=== PATIENT | female | born 1970 | race Caucasian/White ===

== ENCOUNTER → 2019-04-09 | Outpatient (CLI) | payer BC ==
[~2019-04-09] VITALS: Ht 167 cm; Wt 83.6 kg
[~2019-04-09] MED LIST: ASCO1CAP4 PO; DOCU100T7; MULT1CAP27 PO; PREN1TAB39
[2019-04-09 09:19] VITALS: BP 107/76
[2019-04-09 10:01] LABS: BASOPHILS # (AUTO) 0.1 10^3/uL (0.0-0.1); BASOPHILS % (AUTO) 1 % (0-10); EOSINOPHILS # (AUTO) 0.3 10^3/uL (0.0-0.3); EOSINOPHILS % (AUTO) 4 % (0-10); HEMATOCRIT 41 % (35-52); HEMOGLOBIN 13.3 G/DL (11.5-16.0); LYMPHOCYTES # (AUTO) 1.7 X 10^3 (1.0-4.0); LYMPHOCYTES % (AUTO) 29 % (12-44); MEAN CORPUSCULAR HEMOGLOBIN 30 PG (25-34); MEAN CORPUSCULAR HGB CONC 33 G/DL (32-36); MEAN CORPUSCULAR VOLUME 91 FL (80-99); MEAN PLATELET VOLUME 10.3 FL (7.4-10.4); MONOCYTES # (AUTO) 0.4 X 10^3 (0.0-1.0); MONOCYTES % (AUTO) 8 % (0-12); NEUTROPHILS # (AUTO) 3.2 X 10^3 (1.8-7.8); NEUTROPHILS % (AUTO) 57 % (42-75); PLATELET COUNT 251 10^3/uL (130-400); RED CELL DISTRIBUTION WIDTH 13.7 % (10.0-14.5); WHITE BLOOD COUNT 5.7 10^3/uL (4.3-11.0)
== END ==
LOC: PREOP 09:01
PROVIDERS: ATTEND Obstetrics & Gynecology
DX: Z01.818 Encounter for other preprocedural examination (principal); N81.4 Uterovaginal prolapse, unspecified
CPT/HCPCS: 36415; 85025; 86850; 86900; 86901; 87081

== ENCOUNTER 2019-04-20 06:10 | Day surgery (SDC) | payer BC, OTHER ==
[2019-04-20] VITALS (9 sets, daily range): BP systolic 84–110; BP diastolic 57–69
[~2019-04-20] VITALS: Ht 160 cm; Wt 83.6 kg
[2019-04-20] MEDS ORDERED: LACTATED RINGERS 1,000 ML IV SCH ×2 (06:34→06:56)
[2019-04-20] MEDS ORDERED: BUPIVACAINE 0.25% 30 ML (SENSORCAINE) VIAL ONE (06:35)
[2019-04-20] MEDS ORDERED: ceFAZolin 2 GM/50 ML NS 50 ML IV ONE (06:45)
[2019-04-20] MEDS ORDERED: metroNIDAZOLE 500MG/100ML IVPB 100 ML IV ONE (06:45)
[2019-04-20] MEDS ORDERED: LIDOCAINE PF 2% 5 ML (XYLOCAINE) VIAL ONE (06:53)
[2019-04-20] MEDS ORDERED: proPOfol 200 MG/20 ML (DIPRIVAN) VIAL IV ONE (06:53)
[2019-04-20] MEDS ORDERED: fentaNYL INJECTION 100 MCG/2 ML AMP ONE (06:53)
[2019-04-20] MEDS ORDERED: MIDAZOLAM 2 MG/2 ML (VERSED) VIAL ONE (06:53)
[2019-04-20] MEDS ORDERED: ROCURONIUM 10 MG/ML 5 ML SYRINGE IV ONE (06:53)
[2019-04-20] MEDS ORDERED: ONDANSETRON 4 MG/2 ML (SDV) Z0FRAN ONE (06:53)
[2019-04-20] MEDS ORDERED: SEVOFLURANE (ULTANE) 15 ML INHAL SOLN ONE ×7 (06:55→08:40)
[2019-04-20] MEDS ORDERED: DEXAMETHASONE 10 MG/ML (DECADRON) 1 ML VIAL ONE (06:55)
[2019-04-20] MEDS ORDERED: ceFAZolin 2 GM/50 ML NS 50 ML ONE (06:56)
[2019-04-20] MEDS ORDERED: metroNIDAZOLE 500MG/100ML IVPB 100 ML ONE (06:56)
--- NOTE | 2019-04-20 06:56 | Progress Note-Pre Operative ---
Pre-Operative Progress Note H&P Reviewed The H&P was reviewed, patient examined and no changes noted. Date Seen by Provider: Apr 20, 2019 Time Seen by Provider: 06:55 Date H&P Reviewed: Apr 20, 2019 Time H&P Reviewed: 06:55 Pre-Operative Diagnosis: POP MIQUEL MUNGUIA DO Apr 20, 2019 06:56
[2019-04-20] MEDS ORDERED: ZOLPIDEM 5 MG (AMBIEN) TAB PO PRN (07:00)
[2019-04-20] MEDS ORDERED: CHLORASEPTIC LOZENGE MM PRN (07:00)
[2019-04-20] MEDS ORDERED: HYDROcodone/APAP 7.5 MG/325 MG (LORTAB, LORCET PLUS) TABLET PO PRN (07:00)
[2019-04-20] MEDS ORDERED: DOCUSATE SODIUM 100 MG (COLACE) CAP PO PRN (07:00)
[2019-04-20] MEDS ORDERED: ONDANSETRON 4 MG/2 ML (SDV) Z0FRAN IV PRN (07:00)
[2019-04-20] MEDS ORDERED: ANTACID SUSP 30 ML UDC (MYLANTA) PO PRN (07:00)
[2019-04-20] MEDS ORDERED: SIMETHICONE 80 MG (MYLICON) CHEW PO PRN (07:00)
[2019-04-20] MEDS: LACTATED RINGERS 1,000 ML IV PRN ×2 (07:00→08:11)
[2019-04-20] MEDS ORDERED: HYDR-34 PO (07:06)
[2019-04-20] MEDS ORDERED: DOCU100C37 PO (07:06)
[2019-04-20] MEDS ORDERED: IBUP-844 PO (07:06)
[2019-04-20] MEDS ORDERED: SIME80TA16 PO (07:06)
--- NOTE | 2019-04-20 07:10 | Discharge Inst-Women's Service ---
Discharge Inst-Women's Serv Depart Medication/Instructions New, Converted or Re-Newed RX: RX on Chart Problems Reviewed?: Yes Consults/Follow Up Additional Follow Up: Yes Orders/Referrals Dr. Theodore in 7-10 days, and in 8 weeks Activity Activity: Activity as Tolerated Driving Instructions: No Driving for 1 Week NO SMOKING: NO SMOKING Nothing Inside Vagina: No Douching, No [place], No Tampons Diet Discharge Diet: No Restrictions Symptoms to Report to : Bleeding Excessive, Pain Increased, Fever Over 101 Degrees F, Vaginal Bleeding Increase, Questions/Concerns For Any Problems or Questions: Contact Your Physician Skin/Wound Care Infection Signs and Symptoms: Increased Redness, Foul Odor of Wound, Increased Drainage, Skin Itchy or Has a Rash, Increased Swelling, Temperature Above 101 F Operative Area Clean and Dry: Keep Incision Clean/Dry Stitches/Maude/Dermabond: Dermabond, Care of Stitches Bathing Instructions: MIQUEL Quesada DO Apr 20, 2019 07:10
[2019-04-20] MEDS: KETOROLAC 30 MG/ML VIAL IV PRN ×2 (08:30→15:19)
[2019-04-20] MEDS ORDERED: MEPERIDINE (DEMEROL) INJ 50 MG/ML IVP ONE (09:00)
[2019-04-20] MEDS ORDERED: morphine INJ 10 MG/ML 1ML (SYR OR VIAL) IVP ONE (09:00)
[2019-04-20] MEDS ORDERED: ONDANSETRON 4 MG/2 ML (SDV) Z0FRAN IVP PRN (09:00)
[2019-04-20] MEDS ORDERED: PROMETHAZINE INJ 25 MG/ML (PHENERGAN) AMP IVP ONE (09:00)
[2019-04-20] MEDS ORDERED: HYDROmorphone 2 MG/ML VIAL (DILAUDID) ONE (09:27)
[2019-04-20] MEDS ORDERED: HYDROmorphone 2 MG/ML VIAL (DILAUDID) IV ONE (10:00)
--- NOTE | 2019-04-20 10:05 | NUR ---
MARTIN SAEED admitted to room 3306-1, with an admitting diagnosis of ROBOTIC HYSTERECTOMY, on 04/20/19 from RECOVERY ROOM via , accompanied by LALIT SMITH RN AND .MARTIN SAEED introduced to surroundings, call light, bed controls, phone, TV, temperature control, lights, meal times, smoking policy, visitor policy, side rail policy, bathrooms and showers. Patient Rights given to patient in the handbook.MARTIN SAEED verbalizes understanding that [facility] is not responsible for the loss or damage to any personal effects or valuables that are kept in the patients posession during their hospitalization. The following Patient Care Plans were discussed with the : Discharge Planning, ,, and . MARTIN SAEED verbalizes understanding of Interdisciplinary Patient Education. Patient and/or family were informed about the Rapid Response Team and its purpose.
--- NOTE | 2019-04-20 10:05 | NUR ---
REPORT FROM LALIT SMITH RN.
--- NOTE | 2019-04-20 10:20 | NUR ---
INITIAL ASSESSMENT COMPLETED AT BEDSIDE, PT ALERT, AWAKE, REPORTS PAIN 9 IN LOWER ABDOMEN, S/O AT BEDSIDE, SEE INTERVENTIONS FOR DETAILED ASSESSMENTS. PLAN OF CARE EXPLAINED TO PT/SO, PT VERBALIZES UNDERSTANDING. WILL MONITOR CLOSELY.
--- NOTE | 2019-04-20 10:34 | NUR ---
LORTAB (2) TABLETS GIVEN PO FOR PAIN, LR 1000ML INFUSING PER PUMP. ICE WATER AND CRACKERS TO BEDSIDE, ICE PACK TO ABDOMEN. WILL CONTINUE TO MONITOR CLOSELY. S/O REMAINS AT PTS SIDE.
--- NOTE | 2019-04-20 10:53 | NUR ---
RT CALLED ABOUT IS ORDER.
--- NOTE | 2019-04-20 10:53 | NUR ---
LUNCH TRAY TO PTS SIDE, NO DISTRESS NOTED, WILL MONITOR.
--- NOTE | 2019-04-20 11:01 | Anesthesia-General Post-Op ---
General Patient Condition Mental Status/LOC: Same as Preop Cardiovascular: Satisfactory Nausea/Vomiting: Absent Respiratory: Satisfactory Pain: Controlled Complications: Absent Post Op Complications Complications None Follow Up Care/Instructions Patient Instructions None needed. Anesthesia/Patient Condition Patient Condition Patient is doing well, no complaints, stable vital signs, no apparent adverse anesthesia problems. No complications reported per nursing. TOM PUCKETT CRNA Apr 20, 2019 11:01
--- NOTE | 2019-04-20 11:09 | NUR ---
PT REPORTS PAIN IS STILL 9, AND NOT ANY BETTER, DR MUNGUIA CALLED NEW ORDERS RECEIVED.
[2019-04-20] MEDS ORDERED: HYDROmorphone 2 MG/ML VIAL (DILAUDID) IVP PRN (11:15)
--- NOTE | 2019-04-20 11:21 | NUR ---
DILAUDID 1MG GIVEN SIVP FOR PAIN, PT SITTING UP EATING LUNCH IN BED, RATES PAIN 9. CONTINUOUS PULSE OX APPLIED, SPO2 98%, PTS S/O AT BEDSIDE.
--- NOTE | 2019-04-20 11:40 | NUR ---
PT REPORTS PAIN IS "BETTER", S/O AT SIDE, DOSING OFF AT TIMES, WILL MONITOR CLOSELY.
--- NOTE | 2019-04-20 12:12 | NUR ---
O2 APPLIED TO PT BY NC AT 2LITERS WHILE SLEEPING FOR DECREASING SPO2 IN UPPER 80'S. CONTINUOUS PULSE OX APPLIED, RT CALLED ABOUT ESTABLISHING END TIDAL CO2 MONITORING, PTS S/O REMAINS AT SIDE.
--- NOTE | 2019-04-20 12:30 | NUR ---
PT RESTING COMFORTABLY IN BED WITHOUT DISTRESS, S/O AT SIDE.
--- NOTE | 2019-04-20 13:25 | NUR ---
VASUQEZ CATHETER REMOVED, PT TOLERATED WELL, PERICARE COMPLETED. ICE WATER REFILLED,
--- NOTE | 2019-04-20 14:00 | NUR ---
PT UP TO BR, VOIDED WITHOUT DIFFICULTY, PT CHANGING INTO PERSONAL CLOTHES, IV H.L, TOLERATING AMBULATING WELL.
--- NOTE | 2019-04-20 14:00 | NUR ---
O2 DISCONTINUED ALONG WITH END TIDAL CO2
--- NOTE | 2019-04-20 14:45 | NUR ---
DR MUNGUIA CALLED ABOUT PT REQUESTING D/C HOME.
--- NOTE | 2019-04-20 14:48 | NUR ---
TAMIKO VIVEROS HER TO SEE PT. NEW ORDERS RECEIVED.
--- NOTE | 2019-04-20 16:30 | NUR ---
D/C INSTRUCTIONS EXPLAINED TO PT AND S/O, QUESTIONS ANSWERED, PT VERBALIZES UNDERSTANDING OF PLAN OF CARE FOR DISCHARGE. INFORMATION SIGNED.
--- NOTE | 2019-04-20 16:40 | NUR ---
PT D/C TO HOME, TAKEN BY WC TO PRIVATE CAR BY THIS RN WITH S/O AT SIDE, PT VERBALIZES UNDERSTANDING OF D/C INSTRUCTIONS AND FOLLOW UP CARE NO DISTRESS NOTED.
--- NOTE | 2019-04-20 18:23 | OPERATIVE REPORT ---
DATE OF SERVICE: 04/20/2019 PREOPERATIVE DIAGNOSIS: A 48-year-old female with pelvic organ prolapse. POSTOPERATIVE DIAGNOSES: 1. A 48-year-old female with pelvic organ prolapse. 2. Right ovarian dark cyst. PROCEDURES PERFORMED: Robotic-assisted total laparoscopic hysterectomy with bilateral salpingectomy and right oophorectomy. SURGEON: Zackary Theodore DO MANAGER FRENCH: Soco Harrell DNP, who was necessary for uterine manipulation and retraction of vital neurovascular structures throughout the procedure. ANESTHESIA: General endotracheal. ESTIMATED BLOOD LOSS: Minimal. URINE OUTPUT: 120 mL, clear at the end of the procedure. FLUIDS: 1700 mL lactated Ringer's solution. FINDINGS: A grossly normal-appearing uterus, bilateral fallopian tubes appeared grossly normal. Grossly normal-appearing left ovary. The right ovary is enlarged approximately 2-3 cm with a dark bluish purple cystic structure on the right ovary. There is prolapse of the uterine cervix to the level of the vaginal introitus on examination, very mild grade II to grade III cystocele, no rectocele. SPECIMEN SENT: Uterus, bilateral fallopian tubes and right ovary. INDICATIONS FOR PROCEDURE: This is a 48-year-old female sent for consultation in my office for pelvic pressure with Valsalva and lifting as well as some tailbone pain that is new onset since this pressure had occurred. The patient was evaluated in the office and found to have a grade III prolapse of the cervix to the vaginal introitus. I discussed with the patient pessary placement, which would be a more conservative management options versus hysterectomy and the patient wished to proceed with more aggressive surgical permanent option. Risks of the procedure were discussed with the patient in detail including risk of bleeding, infection, damage to any surrounding structures including but not limited to bowel, bladder, ureter, kidneys, postoperative complications that may be incurred, possible need for postoperative reoperation, possible need for blood transfusion, risk from anesthesia and even . After everything was discussed with the patient in detail, consent was obtained in the preoperative area and the patient was taken to the operating room. OPERATIVE REPORT IN DETAIL: Once in the operating room, general anesthesia was found to be adequate, placed in dorsal lithotomy position, prepped and draped in normal sterile fashion. A timeout was performed. A Singleton catheter was placed using sterile technique. A weighted speculum was inserted in the patient's vagina. Right angle retractor was used to visualize the cervix, which was grasped at 12 o'clock position using a long Allis clamp and #0 Vicryl suture was then placed on the anterior lip of the cervix and used as my retraction point. I then gently dilated the cervix to a maximum dilatation approximately 3-4 mm. I then gently sound the uterine cavity and the depth was found to be 8 cm. I selected 8 cm Kim uterine manipulator tip and a 3.5 cm colpotomy ring. I advanced the Kim uterine manipulator tip into the uterus deploying the balloon and colpotomy ring around the vaginal fornix. Excellent uterine manipulation is noted after I do this. I then removed all the other instruments from the patient's vagina. I performed change of gloves and took my attention to the abdomen where infraumbilically I infiltrated this area using 0.25% Marcaine with making an 8 mm incision with a knife and introduced the Veress needle through the incision until intraperitoneal placement was confirmed using saline drop test. I then proceeded with insufflation using CO2 gas and opening pressure of 3 mmHg was noted. I proceeded to maximum pressure of 15 mmHg, at which point I removed the Veress needle and introduced an 8 mm blunt da Melina camera trocar. Once this was in place, I am able to confirm atraumatic placement using the da Melina laparoscope. I had the patient placed in steep Trendelenburg and made visualize all my anatomy findings as described above. There are some adhesions of the omentum on the right side of the anterior abdominal wall, which had to be taken down, so I placed my left trocar first approximately 8 cm lateral to my infraumbilical trocar. The skin was infiltrated using 0.25% Marcaine and made an 8 mm incision with a knife and directed a trocar through the incision until intraperitoneal placement was confirmed using the laparoscope. I then took down the adhesions of the omentum on the right side allowing me to place the right trocar. This was done with an EndoShears after which there was no active bleeding noted from taking down these adhesions. I then placed a trocar in the right side approximately 8 cm lateral to my infraumbilical trocar in similar fashion to the left side. Once both of these trocars were in place, I bring in the da Melina robot and docked in appropriate fashion placing the vessel sealer in the left hand and monopolar modesta in the right hand. I on the right side started by grasping the infundibulopelvic ligament, bipolar cauterized and transected using the vessel sealer. I then grasped the round ligament, bipolar cauterized and transected using the vessel sealer. I then grasped the entire broad ligament, bipolar cauterized and transected using the vessel sealer down to the level of the lower uterine segment, at which point I the anterior and posterior leaflets of the broad ligament. Anterior leaflet was taken around to the anterior vaginal fornix, posterior leaflet was taken around to the posterior vaginal fornix. This allows me to skeletonize the uterine vessels laterally, which I then bipolar cauterized and transected using the vessel sealer. I then on the left side, performed a similar dissection; however sparing the ovary. I started the uteroovarian ligament, I bipolar cauterized and transected using the vessel sealer to create a window in the mesosalpinx using monopolar modesta and take this laterally using monopolar modesta as my hemostatic achieving agent dissecting away as I go the fallopian tube from its blood supply. I then grasped the round ligament, bipolar cauterized and transected using the vessel sealer and then grasped the entire broad ligament, bipolar cauterized and transected using the vessel sealer. I then in similar fashion anterior and posterior leaflets of the broad ligament and skeletonized uterine vessels laterally. I then created a colpotomy at the 12 o'clock position using monopolar modesta. I then took this colpotomy circumferentially around the vaginal fornix amputating the cervix away from the vagina. The entire specimen was then removed through the vagina. I then closed the lateral vaginal apices of the vaginal cuff using 2-0 Vicryl suture in a [id number] fashion colposuspending them to the uterosacral ligaments. During the process of doing so, I am able to identify the ureters bilaterally and they are clear of my dissection planes. I then closed the remainder of the vaginal cuff using 2-0 V-Loc in a running fashion. There was no active bleeding noted from any of my dissection planes. I then undocked the da Melina robot and proceeded with the remainder of the case laparoscopically. I copiously irrigated the pelvis using normal saline. Once again, there was no active bleeding noted from any of my dissection planes. I placed FloSeal hemostatic agent over all my planes of dissection to ensure excellent postoperative hemostasis. After this was done, I had the patient taken out of steep Trendelenburg, removed the lateral trocars under direct visualization and laparoscope. The infraumbilical trocar was left in place to release insufflation and to introduce 10 mL of 0.25% Marcaine for postoperative peritoneal pain management. I then removed this trocar as well. The skin reapproximated using 4-0 Monocryl in interrupted subcuticular stitches. Dermabond was applied to the incisions and Band-Aids were placed over these. Singleton catheter was left in place. Lap and sponge counts were correct at the end of the procedure. Instrument counts were correct as well. The patient tolerated the procedure well and was taken to recovery area in stable condition. Two grams of Ancef, 500 mg of Flagyl given preoperatively for infection prophylaxis. Job ID: [id number] DocumentID: [id number] Dictated Date: 04/20/2019 09:49:07 Facility Maintenance Worker Date: 04/20/2019 18:23:15 Dictated By: DO SHEELA APARICIO
[2019-04-21] MEDS ORDERED: IBUPROFEN 600 MG (MOTRIN) TAB PO PRN (03:00)
== END 2019-04-20 16:40 | disposition home or self-care (01) ==
LOC: SDC 06:10 → WS 10:13 → SDC 16:40
PROVIDERS: ATTEND Obstetrics & Gynecology
DX: N81.3 Complete uterovaginal prolapse (principal); M53.3 Sacrococcygeal disorders, not elsewhere classified
CPT/HCPCS: 36415; 84703; 86850; 86900; 86901; 94664; 94760

== ENCOUNTER → 2019-06-26 | Outpatient (CLI) | payer BC ==
[~2019-06-26] MED LIST changes: +DOCU100C37 PO; +HYDR-34 PO; +IBUP-844 PO; +SIME80TA16 PO
--- NOTE | 2019-06-26 15:07 | Diagnostic Imaging Report ---
EXAMINATION: Ultrasound of the right lower extremity, nonvascular. INDICATION: Lump superior to lateral malleolus of the right leg. COMPARISON: There are no prior studies available for comparison. FINDINGS: Reportedly, there is clinical concern regarding a palpable abnormality involving the soft tissues along the lateral aspect of the ankle joint. The ultrasound examination of this area shows no discrete solid or cystic mass. If clinical concern regarding an underlying abnormality persists, then MRI would be recommended for further study. IMPRESSION: There is no discrete solid or cystic mass in the area of the patient's palpable abnormality along the lateral aspect of the ankle joint. Recommendations as above. Dictated by: Dictated on workstation # [id number]
== END ==
LOC: RAD 12:43
PROVIDERS: ATTEND Family Medicine
DX: R22.41 Localized swelling, mass and lump, right lower limb (principal)
CPT/HCPCS: 76881

== ENCOUNTER → 2019-09-10 | Outpatient (CLI) | payer BC ==
[~2019-09-10] MED LIST changes: +HOLD METFORMIN - RECEIVED CONTRAST 20 ML VIAL IV SCH; +IOHEXOL 350 MG/ML 100 ML (OMNIPAQUE 350) VIAL IV ONE; +NS 100 ML (IVPB) BAG IV ONE
--- NOTE | 2019-09-10 09:31 | Diagnostic Imaging Report ---
PROCEDURE: CT head with and without contrast. TECHNIQUE: Multiple contiguous axial images were obtained through the brain before and after the administration of intravenous contrast. Auto Exposure Controls were utilized during the CT exam to meet ALARA standards for radiation dose reduction. INDICATION: Syncope, vertigo The ventricles are normal in size, shape and position. There are no masses or hemorrhages. There are no extra-axial fluid collections. Postcontrast images do not show any abnormal areas of enhancement. Sagittal and parasagittal structures are normal. IMPRESSION: Negative CT head Dictated by: Dictated on workstation # [id number]
== END ==
LOC: RAD 08:33
PROVIDERS: ATTEND Family Medicine
DX: R42 Dizziness and giddiness (principal); R55 Syncope and collapse; R41.82 Altered mental status, unspecified
CPT/HCPCS: 70470

== ENCOUNTER → 2020-12-15 | Outpatient (CLI) | payer BC, OTHER ==
[~2020-12-15] MED LIST changes: +CYCL10TA9 PO; -HOLD METFORMIN - RECEIVED CONTRAST 20 ML VIAL IV SCH; +INDO25CA99 PO; -IOHEXOL 350 MG/ML 100 ML (OMNIPAQUE 350) VIAL IV ONE; -NS 100 ML (IVPB) BAG IV ONE
--- NOTE | 2020-12-16 13:23 | Diagnostic Imaging Report ---
CLINICAL INDICATION: Patient has explosive headaches with sex. EXAM: MRA of the telida of [place] performed without IV contrast using 3-D [id number]. Rotating 3-D MIP images are created. COMPARISON: Head CT without and with contrast dated 09/10/2019. FINDINGS: There is the appearance of a small vascular outpouching involving the supraclinoid left ICA with the left posterior communicating artery extending from it. This may represent infundibulum, but aneurysm cannot be completely excluded. There is diminished signal within the right [employer] vessel distally and unknown if this is due to artifact. Otherwise the anterior and posterior circulation is patent. 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 This outpouching is not well visualized on this exam. CT angiogram of the telida of [place] and neck is suggested for further evaluation. 2: There is loss of signal within the distal right [employer] vessel. Of note is related to artifact versus an area of true stenosis. This could also be better evaluated with CT angiogram. 3: Remainder of the telida of [place] is unremarkable. [facility]
== END ==
LOC: RAD 14:58
PROVIDERS: ATTEND Family Medicine
DX: G44.82 Headache associated with sexual activity (principal)
CPT/HCPCS: 70544

== ENCOUNTER → 2020-12-15 | Outpatient (CLI) | payer BC, OTHER | LOC: RAD 14:54 | PROVIDERS: ATTEND Obstetrics & Gynecology | DX: Z12.31 Encounter for screening mammogram for malignant neoplasm of breast (principal) | CPT/HCPCS: 77063; 77067 ==

== ENCOUNTER 2020-12-16 10:46 | Emergency (ER) | payer OTHER ==
[~2020-12-16] VITALS: Ht 170 cm; Wt 81.0 kg
[~2020-12-16 10:46] MED LIST changes: -CYCL10TA9 PO; -INDO25CA99 PO
[2020-12-16 11:16] LABS: BASOPHILS # (AUTO) 0.1 10^3/uL (0.0-0.1); BASOPHILS % (AUTO) 1 % (0-10); EOSINOPHILS # (AUTO) 0.2 10^3/uL (0.0-0.3); EOSINOPHILS % (AUTO) 3 % (0-10); HEMATOCRIT 41 % (35-52); HEMOGLOBIN 13.6 g/dL (11.5-16.0); LYMPHOCYTES # (AUTO) 1.6 10^3/uL (1.0-4.0); LYMPHOCYTES % (AUTO) 26 % (12-44); MEAN CORPUSCULAR HEMOGLOBIN 30 pg (25-34); MEAN CORPUSCULAR HGB CONC 33 g/dL (32-36); MEAN CORPUSCULAR VOLUME 90 fL (80-99); MEAN PLATELET VOLUME 10.4 fL (9.0-12.2); MONOCYTES # (AUTO) 0.4 10^3/uL (0.0-1.0); MONOCYTES % (AUTO) 7 % (0-12); NEUTROPHILS # (AUTO) 3.9 10^3/uL (1.8-7.8); NEUTROPHILS % (AUTO) 63 % (42-75); PLATELET COUNT 247 10^3/uL (130-400); WHITE BLOOD COUNT 6.3 10^3/uL (4.3-11.0)
[2020-12-16 11:22] LABS: CHLORIDE 108 MMOL/L (98-107); POTASSIUM 3.9 MMOL/L (3.6-5.0); SODIUM 142 MMOL/L (135-145)
[2020-12-16 11:24] LABS: CALCIUM 9.5 MG/DL (8.5-10.1); GLUCOSE 100 MG/DL (70-105)
[2020-12-16 11:26] LABS: CARBON DIOXIDE 22 MMOL/L (21-32)
[2020-12-16 11:28] LABS: CREATININE SERUM 0.84 MG/DL (0.60-1.30); GFR ESTIMATED > 60
[2020-12-16 11:29] LABS: BUN/CREATININE RATIO 18
[2020-12-16] MEDS ORDERED: NS 100 ML (IVPB) BAG IV ONE (11:45)
[2020-12-16] MEDS ORDERED: IOHEXOL 350 MG/ML 100 ML (OMNIPAQUE 350) VIAL IV ONE (11:45)
[2020-12-16] MEDS ORDERED: CATHETER FLUSH 10 ML SYR IV PRN (11:45)
[2020-12-16] MEDS ORDERED: HOLD METFORMIN - RECEIVED CONTRAST 20 ML VIAL IV SCH (11:45)
--- NOTE | 2020-12-16 12:10 | Diagnostic Imaging Report ---
PROCEDURE: CT angiography of the head and CT angiography of the neck with and without contrast. TECHNIQUE: Contiguous noncontrast images were obtained from the skull base through the vertex. After intravenous contrast administration, helical CT angiography of the neck was performed. Source data was reformatted into 3D MIP projections. Delayed post contrast acquisition was also obtained. Auto Exposure Controls were utilized during the CT exam to meet ALARA standards for radiation dose reduction. INDICATION: Headache. Aneurysm. Back of head is sore when turning. COMPARISON: MRI head without contrast of 12/15/2020. FINDINGS: The noncontrast head CT demonstrates no intracranial hemorrhage, mass effect, hydrocephalus, or extra-axial fluid collections. No CT evidence of a territorial infarction. No abnormal intracranial enhancement on post contrast delayed imaging. CTA demonstrates a conventional aortic arch. The basilar, bilateral common carotid, internal carotid, vertebral, anterior cerebral, middle cerebral, and posterior cerebral arteries are widely patent. No aneurysm or dissection. The findings on the prior MRA were artifactual. Patent anterior and bilateral posterior communicating arteries. The dural venous sinuses are normally opacified. Normal alignment of the cervical spine. No acute osseous findings. The paranasal sinuses and mastoids are clear. Visualized paravertebral soft tissues are unremarkable. Paraseptal emphysema in the lung apices. IMPRESSION: 1. No high-grade narrowing, aneurysm, or dissection involving the major arteries of the head and neck. The findings on the prior MRI of a possible aneurysm were artifactual. 2. No acute intracranial CT findings. No abnormal intracranial enhancement. Dictated by: Dictated on workstation # [id number]
[2020-12-16] MEDS ORDERED: CYCL10TA9 PO (13:53)
[2020-12-16] MEDS ORDERED: INDO25CA99 PO (13:53)
--- NOTE | 2020-12-16 13:53 | ED Headache ---
General Chief Complaint: Head/Cervical Problems Stated Complaint: L SIDE BRAIN ANEURYSM Nursing Triage Note: PT AMB TO ED 6 PT CO OF DANG 01/28, PT STATES HAS HAD DANG FOR 2 WEEKS. STATES WHEN STARTED FELT LIKE EXPLOSION IN HEAD. STATES STARTED WHILE HAVING SEX. PT HAS MRI YESTERDAY AND STATES HAD A POSSIBLE ABNORMALITY AND IS HERE TO BE SEEN AND EVALUATED FOR FURTHER TESTING. STATES DANG CHANGES WHEN TURNS HEAD Nursing Sepsis Screen: No Definite Risk Source: patient, old records, other (Dr. Ford) Exam Limitations: no limitations History of Present Illness Date Seen by Provider: December 16, 2020 Time Seen by Provider: 11:09 Initial Comments This 50-year-old woman presents to the emergency room as directed by Dr. Ford for evaluation of headache and abnormal MRA exam performed yesterday. Patient reports 3 specific instances of severe headache, the first 2 described as "explosive" at the peak of sexual arousal during orgasm. The first 1 occurred about 3 months ago. The second 1 occurred a few weeks ago. She attempted intercourse again yesterday and after becoming aroused started to develop a headache. She then moderated her activity and the headache improved. After the second explosive episode a few weeks ago she has had constant lingering headache, particularly at the base of the posterior scalp and radiating into the neck. She has tender tense musculature in the paraspinous muscles. The explosive and severe headaches are specifically related to climactic sexual activity. She denies having exacerbations of headache with other activities adolfo t cause elevation in heart rate or blood pressure such as physical exertion with walking up stairs, exercise, etc. The MRA was concerning for possible aneurysm. Follow-up CT angiogram was recommended. Dr. Ford discussed the case with Dr. Alvarado at [facility] in [place] who suggested LP to rule out subarachnoid hemorrhage if CTA cannot be used to rule out aneurysm/hemorrhage. Patient notes that she is perimenopausal and has been taking black cohosh and primrose to try to help mitigate symptoms. She started those supplements about 1 month ago. Allergies and Home Medications Allergies Coded Allergies: Penicillins (Verified Allergy, Mild, REDNESS/SWELLING AT INJECTION SITE, 04/09/19) Home Medications Ascorbic Acid/Collagen Hydr 1 Each Capsule, 1 EACH PO BIDPC, (Reported) Cyclobenzaprine HCl 10 Mg Tablet, 10 MG PO Q8H PRN for SPASMS Prescribed by: HARRIET WICK on 12/16/20 1353 Docusate Sodium 100 Mg Capsule, 100 MG PO BID PRN for CONSTIPATION-1ST LINE Prescribed by: MIQUEL MUNGUIA on 04/20/19 07 Hydrocodone Bit/Acetaminophen 1 Ea Tablet, 2 EA PO Q6H PRN for Pain-See I nstructions Prescribed by: MIQUEL MUNGUIA on 04/20/19 07 Ibuprofen 600 Mg Tablet, 600 MG PO Q6H PRN for PAIN-MODERATE Prescribed by: MIQUEL MUNGUIA on 04/20/19 07 Indomethacin 25 Mg Capsule, 25 MG PO UD Take 30 to 60 minutes prior to sexual activity to prevent headache. Prescribed by: HARRIET WICK on 12/16/20 135 Multivitamin 1 Each Capsule, 1 EACH PO DAILY, (Reported) Simethicone 80 Mg Tab.chew, 40 MG PO TID PRN for INDIGESTION 2ND LINE Prescribed by: MIQUEL MUNGUIA on 04/20/19705 Patient Home Medication List Home Medication List Reviewed: Yes Review of Systems Review of Systems Constitutional: no symptoms reported Eyes: No Symptoms Reported Ears, Nose, Mouth, Throat: no symptoms reported Respiratory: no symptoms reported Cardiovascular: no symptoms reported Gastrointestinal: no symptoms reported Genitourinary: no symptoms reported : No Musculoskeletal: see HPI Skin: no symptoms reported Psychiatric/Neurological: See HPI Past Dihdnad-Gokpws-Gbkhtw Hx Past Med/Social Hx: Reviewed Nursing Past Med/Soc Hx Patient Social History Alcohol Use: Denies Use Smoking Status: Former Smoker Former Smoker, Quit: Apr 09, 2014 2nd Hand Smoke Exposure: Yes Recent Infectious Disease Expo: No Recent Hopitalizations: No Seasonal Allergies Seasonal Allergies: No Past Medical History Surgeries: Yes (LOWER BACK, SPHINCTEROTOMY ) Section, Tonsillectomy Respiratory: No Currently Using CPAP: No Currently Using BIPAP: No Cardiac: No Neurological: No Female 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[employer] History: Hysterectomy Sexually Transmitted Disease: No HIV/AIDS: No Genitourinary: No Gastrointestinal: Yes Gastroesophageal Reflux, Chronic Constipation Musculoskeletal: Yes (NO MEDS FOR RA FOR 3 YEARS, JOINT PAIN) Rheumatoid Arthritis, Chronic Back Pain Endocrine: No HEENT: Yes (READING GLASSES) Loss of Vision: Denies Hearing Impairment: Denies Cancer: No Psychosocial: No Integumentary: No Blood Disorders: No Adverse Reaction/Blood Tranf: No (N/A) Physical Exam Vital Signs Vital Signs - First Documented 12/16/20 10:54 Temp 36.6 Pulse 96 Resp 23 B/P (MAP) 103/83 (90) Pulse Ox 97 Capillary Refill : Less Than 3 Seconds Height, Weight, BMI Height: 5'7" Weight: 150lbs. oz. 68.938248nx; 28.00 BMI Method:Stated General Appearance: WD/WN, no apparent distress HEENT: PERRL/EOMI, normal ENT inspection Neck: other (Tenderness over the paraspinous muscles bilaterally. There is a knotted spasmed muscle to the left of the cervical spine) Cardiovascular: regular rate, rhythm, no edema, no murmur Respiratory: lungs clear, normal breath sounds, no respiratory distress Gastrointestinal: soft; No distended Extremities: normal inspection, no pedal edema Psychiatric: alert, oriented x 3 Crainal Nerves: normal hearing, normal speech, PERRL Coordination/Gait: normal finger to nose (Normal [id number]), normal gait Motor/Sensory: no motor deficit, no sensory deficit Skin: normal color, warm/dry Progress/Results/Core Measures Results/Orders Lab Results Laboratory Tests Test 12/16/20 11:00 Range/Units White Blood Count 6.3 4.3-11.0 10^3/uL Red Blood Count 4.60 3.80-5.11 10^6/uL Hemoglobin 13.6 11.5-16.0 g/dL Hematocrit 41 35-52 % Mean Corpuscular Volume 90 80-99 fL Mean Corpuscular Hemoglobin 30 25-34 pg Mean Corpuscular Hemoglobin Concent 33 32-36 g/dL Red Cell Distribution Width 13.2 10.0-14.5 % Platelet Count 247 130-400 10^3/uL Mean Platelet Volume 10.4 9.0-12.2 fL Immature Granulocyte % (Auto) 0 % Neutrophils (%) (Auto) 63 42-75 % Lymphocytes (%) (Auto) 26 12-44 % Monocytes (%) (Auto) 7 0-12 % Eosinophils (%) (Auto) 3 0-10 % Basophils (%) (Auto) 1 0-10 % Neutrophils # (Auto) 3.9 1.8-7.8 10^3/uL Lymphocytes # (Auto) 1.6 1.0-4.0 10^3/uL Monocytes # (Auto) 0.4 0.0-1.0 10^3/uL Eosinophils # (Auto) 0.2 0.0-0.3 10^3/uL Basophils # (Auto) 0.1 0.0-0.1 10^3/uL Immature Granulocyte # (Auto) 0.0 0.0-0.1 10^3/uL Sodium Level 142 135-145 MMOL/L Potassium Level 3.9 3.6-5.0 MMOL/L Chloride Level 108 H 98-107 MMOL/L Carbon Dioxide Level 22 21-32 MMOL/L Anion Gap 12 5-14 MMOL/L Blood Urea Nitrogen 15 7-18 MG/DL Creatinine 0.84 0.60-1.30 MG/DL Estimat Glomerular Filtration Rate > 60 BUN/Creatinine Ratio 18 Glucose Level 100 70-105 MG/DL Calcium Level 9.5 8.5-10.1 MG/DL Serum Test, Qualitative NEGATIVE NEGATIVE My Orders Orders - HARRIET WHYTE MD Ct Angio Head/Neck (12/16/20 11:09) Basic Metabolic Panel (12/16/20 11:09) Cbc With Automated Diff (12/16/20 11:09) Hcg,Qualitative Serum (12/16/20 11:09) Ed Iv/Invasive Line Start (12/16/20 11:09) Iohexol Injection (Omnipaque 350 Mg/Ml 1 (12/16/20 11:45) Received Contrast (Hold Metformin- Contr (12/16/20 11:45) Sodium Chloride Flush (Catheter Flush Sy (12/16/20 11:45) Ns (Ivpb) (Sodium Chloride 0.9% Ivpb Bag (12/16/20 11:45) Ketorolac Injection (Toradol Injection) (12/16/20 14:00) Orphenadrine Inj (Ed Only) (Norflex Inje (12/16/20 14:00) Medications Given in ED Current Medications Medications Dose Ordered Sig/Dolly Route Start Time Stop Time Status Last Admin Dose Admin Iohexol 75 ml ONCE ONCE IV 12/16/20 11:45 12/16/20 11:46 DC 12/16/20 11:49 75 ML Ketorolac Tromethamine 15 mg ONCE ONCE IVP 12/16/20 14:00 12/16/20 14:01 DC 12/16/20 13:52 15 MG Orphenadrine Citrate 60 mg ONCE ONCE IV 12/16/20 14:00 12/16/20 14:01 DC 12/16/20 13:52 60 MG Sodium Chloride 10 ml NEEDED PRN IV 12/16/20 11:45 12/16/20 14:05 DC 12/16/20 11:49 10 ML Sodium Chloride 100 ml ONCE ONCE IV 12/16/20 11:45 12/16/20 11:46 DC 12/16/20 11:49 80 ML Vital Signs/I&O 12/16/20 12/16/20 10:54 13:57 Temp 36.6 Pulse 96 57 Resp 23 18 B/P (MAP) 103/83 (90) 128/98 (90) Pulse Ox 97 97 Blood Pressure Mean: 90 Progress Progress Note : Progress Note CT angiogram of the head and neck revealed no evidence of aneurysm or hemorrhage. After obtaining a more thorough history, it is clear that patient has had 3 distinct episodes of severe headache, the first 2 of which were de scribed as explosive and occurred during orgasm. The third was intense but not as severe as the other 2. This also occurred during sexual activity. The lingering headache she has experienced over the past couple of weeks appears to be tension headache as it originates from the posterior skull base and is associated with tense tender and spasm muscles in the neck. She has being acutely treated in the ER with Toradol and Norflex. She will try indomethacin, Flexeril, and modified sexual activity for prevention of her headaches in the future. Diagnostic Imaging Diagonstic Imaging: CT Plain Films/CT/US/NM/MRI: other (Angiogram head and neck) Comments CT angiogram head and neck reviewed by me and report reviewed. See report below: NAME: MARTIN PORRAS [facility] REC#: [id number] PT STATUS: DEP ER : 1970 PHYSICIAN: HARRIET WHYTE MD ADMIT DATE: 12/16/20/ER Signed Date of Exam:12/16/20 CT ANGIO HEAD/NECK PROCEDURE: CT angiography of the head and CT angiography of the neck with and without contrast. TECHNIQUE: Contiguous noncontrast images were obtained from the skull base through the vertex. After intravenous contrast administration, helical CT angiography of the neck was performed. Source data was reformatted into 3D MIP projections. Delayed post contrast acquisition was also obtained. Auto Exposure Controls were utilized during the CT exam to meet ALARA standards for radiation dose reduction. INDICATION: Headache. Aneurysm. Back of head is sore when turning. COMPARISON: MRI head without contrast of 12/15/2020. FINDINGS: The noncontrast head CT demonstrates no intracranial hemorrhage, mass effect, hydrocephalus, or extra-axial fluid collections. No CT evidence of a territorial infarction. No abnormal intracranial enhancement on post contrast delayed imaging. CTA demonstrates a conventional aortic arch. The basilar, bilateral common carotid, internal carotid, vertebral, anterior cerebral, middle cerebral, and posterior cerebral arteries are widely patent. No aneurysm or dissection. The findings on the prior MRA were artifactual. Patent anterior and bilateral posterior communicating arteries. The dural venous sinuses are normally opacified. Normal alignment of the cervical spine. No acute osseous findings. The paranasal sinuses and mastoids are clear. Visualized paravertebral soft tissues are unremarkable. Paraseptal emphysema in the lung apices. IMPRESSION: 1. No high-grade narrowing, aneurysm, or dissection involving the major arteries of the head and neck. The findings on the prior MRI of a possible aneurysm were artifactual. 2. No acute intracranial CT findings. No abnormal intracranial enhancement. Dictated by: Dictated on workstation # [id number] Dict: 12/16/20 1158 Trans: 12/16/20 1508 [id number] Interpreted by: LESLIE MCGUIRE MD Electronically signed by: LESLIE MCGUIRE MD 12/16/20 1508 Departure Impression Primary Impression: Primary headache associated with sexual activity Additional Impression: Tension headache Disposition: 01 HOME, SELF-CARE Condition: Improved Departure-Patient Inst. Decision time for Depature: 13:48 Referrals: CRICKET FORD MD (PCP/Family) Primary Care Physician Patient Instructions: Tension Headache Add. Discharge Instructions: There was no evidence of aneurysm or bleeding on the CT of your head and neck today. The abnormality seen on the MRI study performed previously is now thought to be an artifact. Your headaches seem to be a combination of tension headaches and primary headache associated with sexual activity. For tension headaches you may use ibuprofen up to 600 mg every 6 hours as needed and/or Tylenol (acetaminophen) up to 1000 mg every 6 hours as needed. Gentle heat and conscientious relaxation of the neck, back, and facial muscles may also be helpful. You may use cyclobenzaprine as prescribed for muscle tension or spasm. Stay well-hydrated and stretch often to maintain good muscle health. You may try taking indomethacin 30 to 60 minutes before sexual activity to help prevent or minimize sex related headaches. You may also try the cyclobenzaprine prior to sexual activity to help you relax. Call with questions or concerns. Follow-up with your primary care provider soon as possible. Return to the ER if you have worsening symptoms. All discharge instructions reviewed with patient and/or family. Voiced understanding. Scripts Cyclobenzaprine HCl (Cyclobenzaprine HCl) 10 Mg Tablet 10 MG PO Q8H PRN for SPASMS, #20 TAB 0 Refills Prov: HARRIET WHYTE MD 12/16/20 Indomethacin (Indomethacin) 25 Mg Capsule 25 MG PO UD, #20 CAP Take 30 to 60 minutes prior to sexual activity to prevent headache. Prov: HARRIET WHYTE MD 12/16/20 Copy Copies To 1: CRICKET FORD MD, JOSHUA T MD December 16, 2020 13:53
[2020-12-16 13:57] VITALS: BP 128/98
[2020-12-16] MEDS ORDERED: KETOROLAC 30 MG/ML VIAL IVP ONE (14:00)
[2020-12-16] MEDS ORDERED: ORPHENADRINE 60 MG/2 ML (NORFLEX) AMP (ED ONLY) IV ONE (14:00)
== END 2020-12-16 14:05 | disposition home or self-care (01) ==
LOC: EDUNIT# 10:46 → ER 10:49
DX: G44.82 Headache associated with sexual activity (principal); G44.209 Tension-type headache, unspecified, not intractable; M62.838 Other muscle spasm; G89.29 Other chronic pain; M54.9 Dorsalgia, unspecified; K59.09 Other constipation; Z87.891 Personal history of nicotine dependence; Z77.22 Contact with and (suspected) exposure to environmental tobacco smoke (acute) (chronic); Z79.891 Long term (current) use of opiate analgesic; Z79.1 Long term (current) use of non-steroidal anti-inflammatories (NSAID); Z79.899 Other long term (current) drug therapy
CPT/HCPCS: 36415; 70496; 70498; 80048; 84703; 85025

== ENCOUNTER 2021-05-21 10:46 | Emergency (ER) | payer OTHER ==
[~2021-05-21] VITALS: Ht 170 cm; Wt 81.6 kg
[~2021-05-21 10:46] MED LIST changes: +CYCL10TA9 PO; +INDO25CA99 PO
[2021-05-21] MEDS ORDERED: fentaNYL INJ 100 MCG/2 ML AMP ONE (10:55)
[2021-05-21] MEDS ORDERED: KETOROLAC 60 MG/2 ML VIAL ONE (10:56)
[2021-05-21] MEDS ORDERED: KETOROLAC 30 MG/ML VIAL ONE (10:59)
[2021-05-21] MEDS ORDERED: LORazepam INJ 2 MG/ML (ATIVAN) VIAL ONE (11:01)
[2021-05-21] MEDS ORDERED: LORazepam INJ 2 MG/ML (ATIVAN) VIAL IVP ONE ×2 (11:15→11:45)
[2021-05-21] MEDS ORDERED: ANTACID SUSP 30 ML UDC (MYLANTA) PO ONE (11:15)
[2021-05-21] MEDS ORDERED: KETOROLAC 30 MG/ML VIAL IVP ONE (11:15)
[2021-05-21] MEDS ORDERED: LIDOCAINE 2% VISCOUS 15 ML UDC PO ONE (11:15)
[2021-05-21] MEDS ORDERED: fentaNYL INJ 100 MCG/2 ML AMP IVP ONE (11:15)
[2021-05-21 11:24] LABS: BASOPHILS # (AUTO) 0.1 10^3/uL (0.0-0.1); BASOPHILS % (AUTO) 2 % (0-10); EOSINOPHILS # (AUTO) 0.2 10^3/uL (0.0-0.3); EOSINOPHILS % (AUTO) 3 % (0-10); HEMATOCRIT 44 % (35-52); HEMOGLOBIN 14.7 g/dL (11.5-16.0); LYMPHOCYTES % (AUTO) 42 % (12-44); MEAN CORPUSCULAR HEMOGLOBIN 30 pg (25-34); MEAN CORPUSCULAR HGB CONC 33 g/dL (32-36); MEAN CORPUSCULAR VOLUME 90 fL (80-99); MEAN PLATELET VOLUME 10.9 fL (9.0-12.2); MONOCYTES # (AUTO) 0.5 10^3/uL (0.0-1.0); MONOCYTES % (AUTO) 7 % (0-12); NEUTROPHILS # (AUTO) 3.4 10^3/uL (1.8-7.8); NEUTROPHILS % (AUTO) 47 % (42-75); PLATELET COUNT 324 10^3/uL (130-400); WHITE BLOOD COUNT 7.2 10^3/uL (4.3-11.0)
--- NOTE | 2021-05-21 11:31 | ED Abdominal Pain ---
General Chief Complaint: Abdominal/GI Problems Stated Complaint: L ABD PAIN/SOB/LIPS AND ARM TINGLING Nursing Triage Note: PT TO ED C/O ABD PAIN WITH ASSOCIATED DIZZINESS AND NAUSEA ONSET A COUPLE MONTHS AGO, WORSENING THE LAST WEEK. PT C/O ARMS TINGLING/SOB, PT HYPERVENTILATING UPON ARRIVAL. Source of Information: Patient Exam Limitations: No Limitations History of Present Illness Date Seen by Provider: May 21, 2021 Time Seen by Provider: 11:17 Initial Comments To ER with sharp and burning left upper quadrant abdominal pain for several months getting significantly worse over the course of the past week. Hurts worse to stand up straight and take a deep breath. She has issues with chronic constipation that are unchanged. No diarrhea. She has chronic nausea. She has a multitude of health issues that she reports. Recently she had some sharp headache radiating into her neck that started during climax during intercourse. There was concern for aneurysm so she underwent MRI and then CTA which failed to show any evidence of aneurysm. She reports chronic pain in her low back as well as some pain in the neck. She is following with Dr. Flynn from spine surgery those issues and is scheduled for an MRI of her cervical spine. Today's issue seems to be primarily the left upper quadrant abdominal pain sharp and burning in nature. She also presents with spasms of her hands and feet and tingling of her hands feet and lips. Timing/Duration: Getting Worse Severity/Quality: Cramping Location: LUQ Radiation: No Radiation Activities at Onset: None Associated Symptoms: Nausea/Vomiting Allergies and Home Medications Allergies Coded Allergies: Penicillins (Verified Allergy, Mild, REDNESS/SWELLING AT INJECTION SITE, 04/09/19) Patient Home Medication List Home Medication List Reviewed: Yes Ascorbic Acid/Collagen Hydr (Collagen Plus Vit C Capsule) 1 Each Capsule, 1 EACH PO BIDPC, (Reported) Entered as Reported by: IAM MCMAHAN on 04/09/19 0915 Cyclobenzaprine HCl (Cyclobenzaprine HCl) 10 Mg Tablet, 10 MG PO Q8H PRN for SPASMS Prescribed by: HARRIET WICK on 12/16/20 1353 Docusate Sodium (Docusate Sodium) 100 Mg Capsule, 100 MG PO BID PRN for CONS TIPATION-1ST LINE Prescribed by: MIQUEL MUNGUIA on 04/20/19 0706 Hydrocodone Bit/Acetaminophen (Lortab 7.5 Mg Tablet) 1 Ea Tablet, 2 EA PO Q6H PRN for Pain-See Instructions Prescribed by: MIQUEL MUNGUIA on 04/20/19 07 Ibuprofen (Ibu) 600 Mg Tablet, 600 MG PO Q6H PRN for PAIN-MODERATE Prescribed by: MIQUEL MUNGUIA on 04/20/19 07 Indomethacin (Indomethacin) 25 Mg Capsule, 25 MG PO UD Prescribed by: HARRIET WICK on 12/16/20 1353 Multivitamin (Multivitamins) 1 Each Capsule, 1 EACH PO DAILY, (Reported) Entered as Reported by: IAM MCMAHAN on 04/09/19 0915 Simethicone (Simethicone) 80 Mg Tab.chew, 40 MG PO TID PRN for INDIGESTION 2ND LINE Prescribed by: MIQUEL MUNGUIA on 04/20/19 07 Review of Systems Review of Systems Constitutional: see HPI EENTM: No Symptoms Reported Respiratory: No Symptoms Reported Cardiovascular: No Symptoms Reported Gastrointestinal: See HPI, Abdominal Pain, Nausea Genitourinary: No Symptoms Reported Musculoskeletal: no symptoms reported Skin: no symptoms reported Psychiatric/Neurological: No Symptoms Reported Endocrine: No Symptoms Reported Hematologic/Lymphatic: No Symptoms Reported Past [id number]-Ghvnqq Hx Patient Social History Tobacco Use?: No Substance use?: No Alcohol Use?: No Immunizations Up To Date Second COVID19 Vaccination Salvatore: UNSURE OF DATE 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 Seasonal Allergies Seasonal Allergies: No Past Medical History Surgeries: Yes (LOWER BACK, SPHINCTEROTOMY ) Section, Tonsillectomy Respiratory: No Currently Using CPAP: No Currently Using BIPAP: No Cardiac: No Neurological: No Female 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 Sexually Transmitted Disease: No HIV/AIDS: No Genitourinary: No Gastrointestinal: Yes Gastroesophageal Reflux, Chronic Constipation Musculoskeletal: Yes (NO MEDS FOR RA FOR 3 YEARS, JOINT PAIN) Rheumatoid Arthritis, Chronic Back Pain Endocrine: No HEENT: Yes (READING GLASSES) Loss of Vision: Denies Hearing Impairment: Denies Cancer: No Psychosocial: No Integumentary: No Blood Disorders: No Adverse Reaction/Blood Tranf: No (N/A) Physical Exam Vital Signs Vital Signs - First Documented 05/21/21 11:00 Temp 36.0 Pulse 120 Resp 24 B/P (MAP) 139/91 (107) Pulse Ox 100 O2 Delivery Room Air Capillary Refill : Less Than 3 Seconds Height/Weight/BMI Height: 5'7" Weight: 150lbs. oz. 68.557903dv; 28.00 BMI Method:Stated General Appearance: WD/WN, no apparent distress, other (Carpopedal spasms no chasity, tachycardic in the 130s, hypertensive, hyperventilating and very anxious) Neck: non-tender, full range of motion Respiratory: no respiratory distress, no accessory muscle use Cardiovascular: regular rate, rhythm, no murmur Gastrointestinal: normal bowel sounds, non tender, soft Extremities: normal range of motion, non-tender Neurologic/Psychiatric: alert, normal mood/affect, oriented x 3 Skin: normal color, warm/dry Progress/Results/Core Measures Results/Orders Lab Results Laboratory Tests Test 05/21/21 11:00 05/21/21 11:55 05/21/21 12:16 Range/Units White Blood Count 7.2 4.3-11.0 10^3/uL Red Blood Count 4.96 3.80-5.11 10^6/uL Hemoglobin 14.7 11.5-16.0 g/dL Hematocrit 44 35-52 % Mean Corpuscular Volume 90 80-99 fL Mean Corpuscular Hemoglobin 30 25-34 pg Mean Corpuscular Hemoglobin Concent 33 32-36 g/dL Red Cell Distribution Width 13.6 10.0-14.5 % Platelet Count 324 130-400 10^3/uL Mean Platelet Volume 10.9 9.0-12.2 fL Immature Granulocyte % (Auto) 0 % Neutrophils (%) (Auto) 47 42-75 % Lymphocytes (%) (Auto) 42 12-44 % Monocytes (%) (Auto) 7 0-12 % Eosinophils (%) (Auto) 3 0-10 % Basophils (%) (Auto) 2 0-10 % Neutrophils # (Auto) 3.4 1.8-7.8 10^3/uL Lymphocytes # (Auto) 3.0 1.0-4.0 10^3/uL Monocytes # (Auto) 0.5 0.0-1.0 10^3/uL Eosinophils # (Auto) 0.2 0.0-0.3 10^3/uL Basophils # (Auto) 0.1 0.0-0.1 10^3/uL Immature Granulocyte # (Auto) 0.0 0.0-0.1 10^3/uL Sodium Level 141 135-145 MMOL/L Potassium Level 3.6 3.6-5.0 MMOL/L Chloride Level 107 98-107 MMOL/L Carbon Dioxide Level 19 L 21-32 MMOL/L Anion Gap 15 H 5-14 MMOL/L Blood Urea Nitrogen 17 7-18 MG/DL Creatinine 0.82 0.60-1.30 MG/DL Estimat Glomerular Filtration Rate 74 BUN/Creatinine Ratio 21 Glucose Level 62 L 70-105 MG/DL Calcium Level 9.8 8.5-10.1 MG/DL Corrected Calcium 8.5-10.1 MG/DL Magnesium Level 1.9 1.6-2.4 MG/DL Total Bilirubin 0.5 0.1-1.0 MG/DL Aspartate Amino Transf (AST/SGOT) 23 5-34 U/L Alanine Aminotransferase (ALT/SGPT) 14 0-55 U/L Alkaline Phosphatase 82 40-136 U/L C-Reactive Protein High Sensitivity 0.12 0.00-0.50 MG/DL Total Protein 7.5 6.4-8.2 GM/DL Albumin 4.6 H 3.2-4.5 GM/DL Thyroid Stimulating Hormone (TSH) 0.74 0.35-4.94 UIU/ML Free Thyroxine 1.12 0.70-1.48 NG/DL Urine Color YELLOW Urine Clarity CLEAR Urine pH 8.0 5-9 Urine Specific [place] 1.010 L 1.016-1.022 Urine Protein NEGATIVE NEGATIVE Urine Glucose (UA) NEGATIVE NEGATIVE Urine Ketones NEGATIVE NEGATIVE Urine Nitrite NEGATIVE NEGATIVE Urine Bilirubin NEGATIVE NEGATIVE Urine Urobilinogen 0.2 < = 1.0 MG/DL Urine Leukocyte Esterase NEGATIVE NEGATIVE Urine RBC (Auto) NEGATIVE NEGATIVE Urine RBC NONE /HPF Urine WBC NONE /HPF Urine Crystals NONE /LPF Urine Bacteria NEGATIVE /HPF Urine Casts NONE /LPF Urine Mucus NEGATIVE /LPF Urine Culture Indicated NO Urine Opiates Screen NEGATIVE NEGATIVE Urine Oxycodone Screen NEGATIVE NEGATIVE Urine Methadone Screen NEGATIVE NEGATIVE Urine Propoxyphene Screen NEGATIVE NEGATIVE Urine Barbiturates Screen NEGATIVE NEGATIVE Ur Tricyclic Antidepressants Screen NEGATIVE NEGATIVE Urine Phencyclidine Screen NEGATIVE NEGATIVE Urine Amphetamines Screen NEGATIVE NEGATIVE Urine Methamphetamines Screen NEGATIVE NEGATIVE Urine Benzodiazepines Screen NEGATIVE NEGATIVE Urine Cocaine Screen NEGATIVE NEGATIVE Urine Cannabinoids Screen POSITIVE H NEGATIVE Glucometer 85 70-110 MG/DL My Orders Orders - SAMSON DODGE APRN Fentanyl Inj (Sublimaze Injection) (05/21/21 10:55) Ketorolac Injection (Toradol Injection) (05/21/21 10:56) Ketorolac Injection (Toradol Injection) (05/21/21 10:59) Lorazepam Injection (Ativan Injection) (05/21/21 11:01) Cbc With Automated Diff (05/21/21 11:11) Hs C Reactive Protein (05/21/21 11:11) Comprehensive Metabolic Panel (05/21/21 11:11) Ua Culture If Indicated (05/21/21 11:11) Ed Iv/Invasive Line Start (05/21/21 11:11) Ct Chest/Abdomen/Pelvis W (05/21/21 11:11) Magnesium (05/21/21 11:11) Thyroid Stimulating Hormone (05/21/21 11:11) Free T4 (Free Thyroxine) (05/21/21 11:11) Ed Iv/Invasive Line Start (05/21/21 11:11) Lorazepam Injection (Ativan Injection) (05/21/21 11:15) Ketorolac Injection (Toradol Injection) (05/21/21 11:15) Fentanyl Inj (Sublimaze Injection) (05/21/21 11:15) Antacid Suspension (Mylanta Suspension (05/21/21 11:15) Lidocaine 2% Viscous 15 Ml (Xylocaine Vi (05/21/21 11:15) Lorazepam Injection (Ativan Injection) (05/21/21 11:45) Iohexol Injection (Omnipaque 350 Mg/Ml 1 (05/21/21 12:00) Received Contrast (Hold Metformin- Contr (05/21/21 12:00) Ns (Ivpb) (Sodium Chloride 0.9% Ivpb Bag (05/21/21 12:00) Accucheck Stat ONCE (05/21/21 12:07) Drug Screen Stat (Urine) (05/21/21 12:08) Medications Given in ED Current Medications Medications Dose Ordered Sig/Dolly Route Start Time Stop Time Status Last Admin Dose Admin Al Hydrox/Mg Hydrox/Simethicone 30 ml ONCE ONCE PO 05/21/21 11:15 05/21/21 11:16 DC 05/21/21 12:13 30 ML Fentanyl Citrate 50 mcg ONCE ONCE IVP 05/21/21 11:15 05/21/21 11:16 DC 05/21/21 11:05 50 MCG Iohexol 100 ml ONCE ONCE IV 05/21/21 12:00 05/21/21 12:01 DC 05/21/21 12:12 100 ML Ketorolac Tromethamine 15 mg ONCE ONCE IVP 05/21/21 11:15 05/21/21 11:16 DC 05/21/21 11:07 15 MG Lidocaine HCl 10 ml ONCE ONCE PO 05/21/21 11:15 05/21/21 11:16 DC 05/21/21 12:13 10 ML Lorazepam 1 mg ONCE ONCE IVP 05/21/21 11:15 05/21/21 11:16 DC 05/21/21 11:05 1 MG Lorazepam 1 mg ONCE ONCE IVP 05/21/21 11:45 05/21/21 11:46 DC 05/21/21 11:25 1 MG Sodium Chloride 100 ml ONCE ONCE IV 05/21/21 12:00 05/21/21 12:01 DC 05/21/21 12:12 80 ML Vital Signs/I&O 05/21/21 11:00 Temp 36.0 Pulse 120 Resp 24 B/P (MAP) 139/91 (107) Pulse Ox 100 O2 Delivery Room Air Blood Pressure Mean: 107 Diagnostic Imaging Diagonstic Imaging: CT Plain Films/CT/US/NM/MRI: chest Comments NAME: VERNCATRINAKARI Kang MED REC#: [id number] PT STATUS: REG ER : 1970 PHYSICIAN: SAMSON DODGE TRUCK SAFETY INSPECTOR ADMIT DATE: 05/21/21/ER Draft Date of Exam:05/21/21 CT CHEST/ABDOMEN/PELVIS W PROCEDURE: CT chest, abdomen, and pelvis with contrast. TECHNIQUE: Multiple contiguous axial images were obtained through the chest, abdomen, and pelvis after the administration of intravenous contrast. Auto Exposure Controls were utilized during the CT exam to meet ALARA standards for radiation dose reduction. INDICATION: Left upper abdominal pain x2 months which is worse today. Dizziness and nausea. COMPARISON: None. FINDINGS: CHEST: Mild paraseptal emphysema in the lung apices. Lungs are otherwise clear. No pleural effusion or pneumothorax. Normal heart size. No pericardial effusion. No lymphadenopathy. Mild atherosclerotic calcifications. No acute osseous findings. ABDOMEN AND PELVIS: Cholelithiasis without secondary findings of cholecystitis. Hysterectomy. The liver, pancreas, spleen, adrenals, right kidney, collecting systems and decompressed bladder are negative. Simple appearing cyst in the left kidney. No evidence of appendicitis. No free intraperitoneal air or fluid. No lymphadenopathy. No evidence of bowel obstruction or inflammation. No acute osseous findings. IMPRESSION: 1. No acute CT findings in the chest, abdomen or pelvis. 2. Mild paraseptal emphysema in the lung apices. 3. Cholelithiasis without secondary findings of cholecystitis. 4. Hysterectomy. Dictated on workstation # [id number] Dict: 05/21/21 1217 Trans: 05/21/21 1230 ACB [id number] Interpreted by: LESLIE MCGUIRE MD Electronically signed by: Departure Communication (Admissions) 8911-we have given 15 mg of Toradol, 50 mcg of fentanyl and 2 mg of lorazepam and finally her heart rate has fallen into the 90s and her breathing has slowed. 1255-heart rate down to 74, much more relaxed and states that she feels better. The GI cocktail did help with her left upper quadrant pain though she is still operator whiskey to palpation over the lower costochondral junction. And at the right sternoclavicular junction. Seems like she has a couple of issues, likely gastric ulcer as she is on Celebrex and takes NSAIDs additionally for her neck and back pain as well as some costochondritis evidenced by the pain at the aforementioned locations. I will put her on some Carafate and Protonix as well as tramadol for pain control. She has taken tramadol before with good relief. Impression Primary Impression: Costochondritis Additional Impression: Gastritis Disposition: 01 HOME, SELF-CARE Condition: Improved Departure-Patient Inst. Decision time for Depature: 12:59 Referrals: CRICKET GALVAN MD (PCP/Family) Primary Care Physician Patient Instructions: Costochondritis (DC), Gastritis ED Add. Discharge Instructions: 1. Medication as directed follow-up with your doctor next week. All discharge instructions reviewed with patient and/or family. Voiced understanding. Scripts Tramadol HCl (Tramadol HCl) 50 Mg Tablet 50 MG PO Q6H PRN for PAIN for 3 Days, #20 TAB 0 Refills Prov: SAMSON DODGE APRN 05/21/21 Sucralfate (Carafate) 1 Gm Tablet 1 GM PO ACHS, #40 TAB Prov: SAMSON DODGE APRN 05/21/21 Pantoprazole Sodium (Protonix) 40 Mg Tablet.dr 40 MG PO DAILY, #30 TAB Prov: SAMSON DODGE APRN 05/21/21 Copy Copies To 1: CRICKET GALVAN MD, PETER J APRN May 21, 2021 11:31
[2021-05-21 11:33] LABS: ALBUMIN 4.6 GM/DL (3.2-4.5); CHLORIDE 107 MMOL/L (98-107); POTASSIUM 3.6 MMOL/L (3.6-5.0); SODIUM 141 MMOL/L (135-145)
[2021-05-21 11:34] LABS: CALCIUM 9.8 MG/DL (8.5-10.1)
[2021-05-21 11:36] LABS: GLUCOSE 62 MG/DL (70-105); TOTAL PROTEIN 7.5 GM/DL (6.4-8.2)
[2021-05-21 11:37] LABS: BILIRUBIN,TOTAL 0.5 MG/DL (0.1-1.0); CARBON DIOXIDE 19 MMOL/L (21-32)
[2021-05-21 11:39] LABS: ALKALINE PHOSPHATASE 82 U/L (40-136); CREATININE SERUM 0.82 MG/DL (0.60-1.30); GFR ESTIMATED 74
[2021-05-21 11:40] LABS: BUN/CREATININE RATIO 21
[2021-05-21 11:42] LABS: ALANINE AMINOTRANSFERASE 14 U/L (0-55)
[2021-05-21 11:43] LABS: MAGNESIUM 1.9 MG/DL (1.6-2.4)
[2021-05-21] MEDS ORDERED: NS 100 ML (IVPB) BAG IV ONE (12:00)
[2021-05-21] MEDS ORDERED: HOLD METFORMIN - RECEIVED CONTRAST 20 ML VIAL IV SCH (12:00)
[2021-05-21] MEDS ORDERED: IOHEXOL 350 MG/ML 100 ML (OMNIPAQUE 350) VIAL IV ONE (12:00)
[2021-05-21 12:03] LABS: FREE T4 (FREE THYROXINE) 1.12 NG/DL (0.70-1.48)
[2021-05-21 12:04] LABS: BILIRUBIN,URINE NEGATIVE (NEGATIVE); CLARITY,URINE CLEAR; COLOR,URINE YELLOW; GLUCOSE, URINE (UA) NEGATIVE (NEGATIVE); KETONES,URINE NEGATIVE (NEGATIVE); LEUKOCYTE ESTERASE ,URINE NEGATIVE (NEGATIVE); NITRITE,URINE NEGATIVE (NEGATIVE); PROTEIN,URINE NEGATIVE (NEGATIVE)
[2021-05-21 12:10] LABS: BACTERIA,URINE NEGATIVE /HPF
[2021-05-21 12:23] LABS: AMPHETAMINE SCREEN, URINE NEGATIVE (NEGATIVE); BARBITURATE SCREEN URINE NEGATIVE (NEGATIVE); BENZODIAZEPINES SCREEN URINE NEGATIVE (NEGATIVE); CANNABINOID SCREEN, URINE POSITIVE (NEGATIVE); COCAINE SCREEN URINE NEGATIVE (NEGATIVE); METHADONE STAT NEGATIVE (NEGATIVE); METHAMPHETAMINE SCREEN URINE S NEGATIVE (NEGATIVE); OPIATE SCREEN URINE NEGATIVE (NEGATIVE); OXYCODONE STAT NEGATIVE (NEGATIVE); PROPOXYPHENE STAT NEGATIVE (NEGATIVE); TRICYCLIC ANTIDEPRESSANTS SCRE NEGATIVE (NEGATIVE)
--- NOTE | 2021-05-21 12:30 | Diagnostic Imaging Report ---
PROCEDURE: CT chest, abdomen, and pelvis with contrast. TECHNIQUE: Multiple contiguous axial images were obtained through the chest, abdomen, and pelvis after the administration of intravenous contrast. Auto Exposure Controls were utilized during the CT exam to meet ALARA standards for radiation dose reduction. INDICATION: Left upper abdominal pain x2 months which is worse today. Dizziness and nausea. COMPARISON: None. FINDINGS: CHEST: Mild paraseptal emphysema in the lung apices. Lungs are otherwise clear. No pleural effusion or pneumothorax. Normal heart size. No pericardial effusion. No lymphadenopathy. Mild atherosclerotic calcifications. No acute osseous findings. ABDOMEN AND PELVIS: Cholelithiasis without secondary findings of cholecystitis. Hysterectomy. The liver, pancreas, spleen, adrenals, right kidney, collecting systems and decompressed bladder are negative. Simple appearing cyst in the left kidney. No evidence of appendicitis. No free intraperitoneal air or fluid. No lymphadenopathy. No evidence of bowel obstruction or inflammation. No acute osseous findings. IMPRESSION: 1. No acute CT findings in the chest, abdomen or pelvis. 2. Mild paraseptal emphysema in the lung apices. 3. Cholelithiasis without secondary findings of cholecystitis. 4. Hysterectomy. Dictated by: Dictated on workstation # [id number]
[2021-05-21] MEDS ORDERED: PANT40TA2 PO (13:00)
[2021-05-21] MEDS ORDERED: TRM50T PO (13:00)
[2021-05-21] MEDS ORDERED: SUCR1TAB36 PO (13:00)
[2021-05-21 13:10] VITALS: BP 112/61
== END 2021-05-21 13:10 | disposition home or self-care (01) ==
LOC: EDUNIT# 10:46 → ER 10:47
DX: M94.0 Chondrocostal junction syndrome [Tietze] (principal); K29.70 Gastritis, unspecified, without bleeding; R00.0 Tachycardia, unspecified; G89.29 Other chronic pain; M54.9 Dorsalgia, unspecified; Z79.891 Long term (current) use of opiate analgesic
CPT/HCPCS: 36415; 71260; 74177; 80053; 80306; 81000; 82947; 83735; 84439; 84443; 85025; 86141

== ENCOUNTER 2021-05-30 12:46 | Day surgery (SDC) | payer OTHER ==
[~2021-05-30] VITALS: Ht 170 cm; Wt 77.1 kg
[~2021-05-30 12:46] MED LIST changes: +PANT40TA2 PO; +SUCR1TAB36 PO; +TRM50T PO
--- NOTE | 2021-05-30 13:12 | ED Abdominal Pain ---
General Chief Complaint: Abdominal/GI Problems Stated Complaint: ABD PAIN BACK PAIN Source of Information: Patient History of Present Illness Date Seen by Provider: May 30, 2021 Time Seen by Provider: 13:10 Initial Comments Patient is a 50-year-old female who presents to the ED with abdominal pain, back pain, chest pain. Symptoms started early last week. Patient reports a sharp stabbing pain in her back and upper abdominal discomfort that has been continuous. Worsening pain today. She reports nausea without vomiting. She reports several episodes of watery diarrhea with value blood or mucus. Denies any urinary symptoms. She states she was seen here diagnosed with abdominal pain. She went to [facility] on the fourth and had a ultrasound that showed a large 2.5 cm stone in the gallbladder without any gallbladder wall thickening or pericholecystic fluid. She is had this worsening pain with chills, fatigue feeling feverish. She has associated dizziness and lower chest discomfort. Denies history of coronary artery disease, COPD. Has been taken tramadol without much improvement. Pain is worse with eating. History of hysterectomy. Allergies and Home Medications Allergies Coded Allergies: Penicillins (Verified Allergy, Mild, REDNESS/SWELLING AT INJECTION SITE, 04/09/19) Patient Home Medication List Home Medication List Reviewed: Yes Ascorbic Acid/Collagen Hydr (Collagen Plus Vit C Capsule) 1 Each Capsule, 1 EACH PO BIDPC, (Reported) Entered as Reported by: IAM MCMAHAN on 04/09/19 0915 Cyclobenzaprine HCl (Cyclobenzaprine HCl) 10 Mg Tablet, 10 MG PO Q8H PRN for SPASMS Prescribed by: HARRIET WICK on 12/16/20 1353 Docusate Sodium (Docusate Sodium) 100 Mg Capsule, 100 MG PO BID PRN for CONSTIPATION-1ST LINE Prescribed by: MIQUEL MUNGUIA on 04/20/19 0706 Hydrocodone Bit/Acetaminophen (Lortab 7.5 Mg Tablet) 1 Ea Tablet, 2 EA PO Q6H PRN for Pain-See Instructions Prescribed by: MIQUEL MUNGUIA on 04/20/19 07 Ibuprofen (Ibu) 600 Mg Tablet, 600 MG PO Q6H PRN for PAIN-MODERATE Prescribed by: MIQUEL MUNGUIA on 04/20/19 0706 Indomethacin (Indomethacin) 25 Mg Capsule, 25 MG PO UD Prescribed by: HARRIET WICK on 12/16/20 1353 Multivitamin (Multivitamins) 1 Each Capsule, 1 EACH PO DAILY, (Reported) Entered as Reported by: IAM MCMAHAN on 04/09/19 0915 Pantoprazole Sodium (Protonix) 40 Mg Tablet.dr, 40 MG PO DAILY Prescribed by: SAMSON DODGE on 05/21/21 1300 Simethicone (Simethicone) 80 Mg Tab.chew, 40 MG PO TID PRN for INDIGESTION 2ND LINE Prescribed by: MIQUEL MUNGUIA on 04/20/19 0706 Sucralfate (Carafate) 1 Gm Tablet, 1 GM PO ACHS Prescribed by: SAMSON DODGE on 05/21/21 1300 Tramadol HCl (Tramadol HCl) 50 Mg Tablet, 50 MG PO Q6H PRN for PAIN Prescribed by: SAMSON DODGE on 05/21/21 1300 Review of Systems Review of Systems Constitutional: chills, dizziness, malaise EENTM: No Blurred Vision, No Double Vision, No Eye Pain Respiratory: Denies Cough, Denies Orthopnea, Denies Shortness of Air Cardiovascular: Chest Pain; Denies Edema Gastrointestinal: Abdominal Pain; Denies Constipated, Denies Diarrhea, Denies Difficulty Swallowing Genitourinary: Denies Burning, Denies Frequency, Denies Flank Pain Musculoskeletal: back pain Skin: No see HPI, No change in color, No change in hair/nails All Other Systems Reviewed Negative Unless Noted: Yes Past [id number] Hx Immunizations Up To Date Second COVID19 Vaccination Salvatore: UNSURE OF DATE Seasonal Allergies Seasonal Allergies: No Past Medical History Surgeries: Yes (LOWER BACK, SPHINCTEROTOMY ) Section, Tonsillectomy Respiratory: No Currently Using CPAP: No Currently Using BIPAP: No Cardiac: No Neurological: No Female 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 [employer] History: Hysterectomy Sexually Transmitted Disease: No HIV/AIDS: No Genitourinary: No Gastrointestinal: Yes Gastroesophageal Reflux, Chronic Constipation Musculoskeletal: Yes (NO MEDS FOR RA FOR 3 YEARS, JOINT PAIN) Rheumatoid Arthritis, Chronic Back Pain Endocrine: No HEENT: Yes (READING GLASSES) Loss of Vision: Denies Hearing Impairment: Denies Cancer: No Psychosocial: No Integumentary: No Blood Disorders: No Adverse Reaction/Blood Tranf: No (N/A) Physical Exam Vital Signs Vital Signs - First Documented 05/30/21 13:00 Temp 36.5 Pulse 90 Resp 20 B/P (MAP) 135/88 (104) Pulse Ox 98 O2 Delivery Room Air Capillary Refill : Height/Weight/BMI Height: 5'7" Weight: 150lbs. oz. 68.579687pv; 28.00 BMI Method:Stated General Appearance: WD/WN, no apparent distress HEENT: PERRL/EOMI, normal ENT inspection, TMs normal, pharynx normal Neck: non-tender, full range of motion, supple Respiratory: chest non-tender, lungs clear, normal breath sounds Cardiovascular: regular rate, rhythm, no edema, no gallop Gastrointestinal: normal bowel sounds, soft, no organomegaly, no pulsatile mass, tenderness (Right upper quadrant tenderness, epigastric tenderness) Extremities: normal range of motion, non-tender, normal inspection Back: normal inspection, no CVA tenderness Progress/Results/Core Measures Results/Orders Lab Results Laboratory Tests Test 05/30/21 13:10 05/30/21 13:23 Range/Units Urine Color YELLOW Urine Clarity CLEAR Urine pH 7.5 5-9 Urine Specific [place] 1.020 1.016-1.022 Urine Protein NEGATIVE NEGATIVE Urine Glucose (UA) NEGATIVE NEGATIVE Urine Ketones NEGATIVE NEGATIVE Urine Nitrite NEGATIVE NEGATIVE Urine Bilirubin NEGATIVE NEGATIVE Urine Urobilinogen 0.2 < = 1.0 MG/DL Urine Leukocyte Esterase NEGATIVE NEGATIVE Urine RBC (Auto) NEGATIVE NEGATIVE Urine RBC NONE /HPF Urine WBC NONE /HPF Urine Crystals PRESENT H /LPF Urine Amorphous Sediment LARGE HENNA PHOSPHATE H /LPF Urine Bacteria NEGATIVE /HPF Urine Casts NONE /LPF Urine Mucus NEGATIVE /LPF Urine Culture Indicated NO White Blood Count 6.5 4.3-11.0 10^3/uL Red Blood Count 4.67 3.80-5.11 10^6/uL Hemoglobin 13.6 11.5-16.0 g/dL Hematocrit 42 35-52 % Mean Corpuscular Volume 90 80-99 fL Mean Corpuscular Hemoglobin 29 25-34 pg Mean Corpuscular Hemoglobin Concent 32 32-36 g/dL Red Cell Distribution Width 13.6 10.0-14.5 % Platelet Count 263 130-400 10^3/uL Mean Platelet Volume 10.8 9.0-12.2 fL Immature Granulocyte % (Auto) 0 % Neutrophils (%) (Auto) 50 42-75 % Lymphocytes (%) (Auto) 37 12-44 % Monocytes (%) (Auto) 6 0-12 % Eosinophils (%) (Auto) 6 0-10 % Basophils (%) (Auto) 1 0-10 % Neutrophils # (Auto) 3.2 1.8-7.8 10^3/uL Lymphocytes # (Auto) 2.4 1.0-4.0 10^3/uL Monocytes # (Auto) 0.4 0.0-1.0 10^3/uL Eosinophils # (Auto) 0.4 H 0.0-0.3 10^3/uL Basophils # (Auto) 0.1 0.0-0.1 10^3/uL Immature Granulocyte # (Auto) 0.0 0.0-0.1 10^3/uL Sodium Level 143 135-145 MMOL/L Potassium Level 4.1 3.6-5.0 MMOL/L Chloride Level 108 H 98-107 MMOL/L Carbon Dioxide Level 23 21-32 MMOL/L Anion Gap 12 5-14 MMOL/L Blood Urea Nitrogen 18 7-18 MG/DL Creatinine 0.80 0.60-1.30 MG/DL Estimat Glomerular Filtration Rate 76 BUN/Creatinine Ratio 23 Glucose Level 77 70-105 MG/DL Calcium Level 9.3 8.5-10.1 MG/DL Corrected Calcium 9.1 8.5-10.1 MG/DL Total Bilirubin 0.4 0.1-1.0 MG/DL Aspartate Amino Transf (AST/SGOT) 20 5-34 U/L Alanine Aminotransferase (ALT/SGPT) 16 0-55 U/L Alkaline Phosphatase 58 40-136 U/L Troponin I < 0.028 <0.028 NG/ML Total Protein 6.8 6.4-8.2 GM/DL Albumin 4.2 3.2-4.5 GM/DL Lipase 17 8-78 U/L My Orders Orders - JAYDEN JAEGER PA Ua Culture If Indicated (05/30/21 12:55) Cbc With Automated Diff (05/30/21 13:08) Comprehensive Metabolic Panel (05/30/21 13:08) Lipase (05/30/21 13:08) Ekg Tracing (05/30/21 13:08) Troponin I (05/30/21 13:08) Chest 1 View, Ap/Pa Only (05/30/21 13:08) Fentanyl Inj (Sublimaze Injection) (05/30/21 13:15) Ns Iv 1000 Ml (Sodium Chloride 0.9%) (05/30/21 13:15) Outside Films For Comparison (05/25/21 ) Outside Films For Comparison (05/25/21 ) Fentanyl Inj (Sublimaze Injection) (05/30/21 13:49) Fentanyl Inj (Sublimaze Injection) (05/30/21 13:34) Vital Signs/I&O 05/30/21 13:00 Temp 36.5 Pulse 90 Resp 20 B/P (MAP) 135/88 (104) Pulse Ox 98 O2 Delivery Room Air Initial ECG Impression Date: May 30, 2021 Initial ECG Impression Time: 13:56 Comment Sinus rhythm, 55 bpm, QRS duration 96 MS, QTc 392 MS Departure Communication (Admissions) Time/Spoke to Admitting Phy: 14:[address] Reich who recommends surgery in the morning. N.p.o. after midnight. Patient without any significant medical history. Time/Spoke to Consulting Phy: 14:38 Patient with right upper quadrant abdominal tenderness for the past 2 to 3 weeks. She was seen here on the CT abdomen, pelvis and chest showed emphy sema changes, cholelithiasis without evidence of cholecystitis. Patient went to her primary care physician last week had a ultrasound showed a 2.5 cm stone in her right gallbladder. No evidence of cholecystitis. Patient with continued worsening pain over the past 2 days with vomiting yellow content and diarrhea that appears light. She does have right upper quadrant and epigastric tenderness with radiation to the back. History of similar type pain in the past. Concerning for biliary colic. Patient requesting surgical consult. Patient was discussed with Dr. Reich who accepts patient on behalf and recommends surgery in the morning. N.p.o. after midnight. No further orders was placed at this time. Pain controlled with IV fentanyl. Lab work was other espino unremarkable. Normal white blood count, kidney function, liver function pancreatic function. Cardiac work-up unremarkable. Patient reports no significant medical history at this time. So hospitalist was not contacted at this time. Impression Primary Impression: Cholelithiasis Additional Impression: Intractable abdominal pain Disposition: ADMITTED INPATIENT Condition: Stable Admissions Decision to Admit Reason: Admit from ER (General) Decision to Admit/Date: May 30, 2021 Time/Decision to Admit Time: 14:39 Departure-Patient Inst. Referrals: CRICKET GALVAN MD (PCP/Family) Primary Care Physician JAYDEN JAEGER May 30, 2021 13:12
[2021-05-30 13:26] LABS: BILIRUBIN,URINE NEGATIVE (NEGATIVE); CLARITY,URINE CLEAR; COLOR,URINE YELLOW; GLUCOSE, URINE (UA) NEGATIVE (NEGATIVE); KETONES,URINE NEGATIVE (NEGATIVE); LEUKOCYTE ESTERASE ,URINE NEGATIVE (NEGATIVE); NITRITE,URINE NEGATIVE (NEGATIVE); PH,URINE 7.5 (5-9); PROTEIN,URINE NEGATIVE (NEGATIVE)
--- NOTE | 2021-05-30 13:27 | Diagnostic Imaging Report ---
EXAMINATION: Chest 1 view HISTORY: chest pain COMPARISON: CT chest from 05/21/2021. FINDINGS: Heart size and pulmonary vasculature are normal. The lungs are clear without consolidation, pleural effusion, or pneumothorax. The osseous structures are intact. IMPRESSION: 1. No acute radiographic abnormality in the chest. Dictated by: Dictated on workstation # [id number]
[2021-05-30] MEDS ORDERED: fentaNYL INJ 100 MCG/2 ML AMP ONE (13:34)
[2021-05-30] MEDS: NS IV 1000 ML 1,000 ML IV SCH ×2 (13:37→17:36)
[2021-05-30] MEDS: fentaNYL INJ 100 MCG/2 ML AMP IVP STA (13:37)
[2021-05-30] MEDS: fentaNYL INJ 100 MCG/2 ML AMP IVP PRN ×2 (13:37→17:21)
[2021-05-30 13:39] LABS: BASOPHILS # (AUTO) 0.1 10^3/uL (0.0-0.1); BASOPHILS % (AUTO) 1 % (0-10); EOSINOPHILS # (AUTO) 0.4 10^3/uL (0.0-0.3); EOSINOPHILS % (AUTO) 6 % (0-10); HEMATOCRIT 42 % (35-52); HEMOGLOBIN 13.6 g/dL (11.5-16.0); LYMPHOCYTES # (AUTO) 2.4 10^3/uL (1.0-4.0); LYMPHOCYTES % (AUTO) 37 % (12-44); MEAN CORPUSCULAR HEMOGLOBIN 29 pg (25-34); MEAN CORPUSCULAR HGB CONC 32 g/dL (32-36); MEAN CORPUSCULAR VOLUME 90 fL (80-99); MEAN PLATELET VOLUME 10.8 fL (9.0-12.2); MONOCYTES # (AUTO) 0.4 10^3/uL (0.0-1.0); MONOCYTES % (AUTO) 6 % (0-12); NEUTROPHILS # (AUTO) 3.2 10^3/uL (1.8-7.8); NEUTROPHILS % (AUTO) 50 % (42-75); PLATELET COUNT 263 10^3/uL (130-400); WHITE BLOOD COUNT 6.5 10^3/uL (4.3-11.0)
[2021-05-30 13:49] LABS: AMORPHOUS SEDIMENT,UR LARGE AMOR PHOSPHATE /LPF; BACTERIA,URINE NEGATIVE /HPF
[2021-05-30 13:53] LABS: ALBUMIN 4.2 GM/DL (3.2-4.5); CHLORIDE 108 MMOL/L (98-107); POTASSIUM 4.1 MMOL/L (3.6-5.0); SODIUM 143 MMOL/L (135-145)
[2021-05-30 13:54] LABS: CALCIUM 9.3 MG/DL (8.5-10.1)
[2021-05-30 13:56] LABS: GLUCOSE 77 MG/DL (70-105); TOTAL PROTEIN 6.8 GM/DL (6.4-8.2)
[2021-05-30 13:57] LABS: CARBON DIOXIDE 23 MMOL/L (21-32)
[2021-05-30 13:58] LABS: BILIRUBIN,TOTAL 0.4 MG/DL (0.1-1.0)
[2021-05-30 13:59] LABS: ALKALINE PHOSPHATASE 58 U/L (40-136); GFR ESTIMATED 76
[2021-05-30 14:00] LABS: BUN/CREATININE RATIO 23
[2021-05-30 14:02] LABS: ALANINE AMINOTRANSFERASE 16 U/L (0-55)
[2021-05-30 14:03] LABS: LIPASE 17 U/L (8-78)
[2021-05-30 15:30] VITALS: BP 123/57
--- NOTE | 2021-05-30 15:41 | History & Physical-Surgical ---
[facility] P[facility] MED STUDENT 05/30/21 1541: History of Present Illness History of Present Illness Reason for visit/HPI Patient presents with ruq/epigastric pain with nausea, bilious emesis, and diarrhea. She describes the pain as sharp, constant, that wraps around her side to her back. She reports she has been having this right upper quadrant pain for approximately 6 weeks, which started as a wax and waning intermittent pain, that has been progressively getting worse. She was given tramadol after coming to the ER last week, which seemed to help initially, but is no longer helping. Moving around makes the pain worse. She has been having associate anorexia and nausea she claims to have lost 20lbs in the last month. Date of Admission May 30, 2021 at 15:03 Date Seen by a Provider: May 30, 2021 Time Seen by a Provider: 15:00 I consulted on this patient on 05/30/21 15:36 Attending Physician Gokul Parra DO Admitting Physician Jennifer Ford MD Consult Allergies and Home Medications Allergies Coded Allergies: Penicillins (Verified Allergy, Mild, REDNESS/SWELLING AT INJECTION SITE, 04/09/19) Patient Home Medication List Ascorbic Acid/Collagen Hydr (Collagen Plus Vit C Capsule) 1 Each Capsule, 1 EACH PO BIDPC, (Reported) Entered as Reported by: IAM MCMAHAN on 04/09/19 0915 Cyclobenzaprine HCl (Cyclobenzaprine HCl) 10 Mg Tablet, 10 MG PO Q8H PRN for SPASMS Prescribed by: HARRIET WICK on 12/16/20 1353 Docusate Sodium (Docusate Sodium) 100 Mg Capsule, 100 MG PO BID PRN for CONSTIPATION-1ST LINE Prescribed by: MIQUEL MUNGUIA on 04/20/19 07 Hydrocodone Bit/Acetaminophen (Lortab 7.5 Mg Tablet) 1 Ea Tablet, 2 EA PO Q6H P RN for Pain-See Instructions Prescribed by: MIQUEL MUNGUIA on 04/20/19 07 Ibuprofen (Ibu) 600 Mg Tablet, 600 MG PO Q6H PRN for PAIN-MODERATE Prescribed by: MIQUEL MUNGUIA on 04/20/19 07 Indomethacin (Indomethacin) 25 Mg Capsule, 25 MG PO UD Prescribed by: HARRIET WICK on 12/16/20 1353 Multivitamin (Multivitamins) 1 Each Capsule, 1 EACH PO DAILY, (Reported) Entered as Reported by: IAM MCMAHAN on 04/09/19 0915 Pantoprazole Sodium (Protonix) 40 Mg Tablet.dr, 40 MG PO DAILY Prescribed by: SAMSON DODGE on 05/21/21 1300 Simethicone (Simethicone) 80 Mg Tab.chew, 40 MG PO TID PRN for INDIGESTION 2ND LINE Prescribed by: MIQUEL MUNGUIA on 04/20/19 0706 Sucralfate (Carafate) 1 Gm Tablet, 1 GM PO ACHS Prescribed by: SAMSON DODGE on 05/21/21 1300 Tramadol HCl (Tramadol HCl) 50 Mg Tablet, 50 MG PO Q6H PRN for PAIN Prescribed by: SAMSON DODGE on 05/21/21 1300 Past Oaiwber-Noydxb-Esuqyi Hx Patient Social History Tobacco Use?: No Substance use?: No Alcohol Use?: Yes Alcohol Frequency: Once in a while Immunizations Up To Date First/Initial COVID19 Vaccinat: DECEMBER 2020 Second COVID19 Vaccination Salvatore: JANUARY 2021 Tetanus Booster (TDap): More Than 5 Years Seasonal Allergies Seasonal Allergies: No Current Status status: No Advance Directives: No Communicates: Verbally Primary Language: [place] Preferred Spoken Language: [place] Is interpretation needed?: No Past Medical History Surgeries: Section, Hysterectomy (partial), Orthopedic (back), Tonsillectomy Currently Using CPAP: No 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 Sexually Transmitted Disease: No HIV/AIDS: No Gastroesophageal Reflux, Chronic Constipation Rheumatoid Arthritis, Chronic Back Pain Loss of Vision: Denies Hearing Impairment: Denies Blood Disorders: No Adverse Reaction/Blood Tranf: No (N/A) Family Medical History No Pertinent Family Hx Review of Systems Constitutional: chills, dizziness; No fever; weakness EENTM: ear pain (left ear) Respiratory: No cough, No dyspnea on exertion; short of breath (due to pain) Cardiovascular: No chest pain, No palpitations Gastrointestinal: abdominal pain (RUQ), diarrhea, loss of appetite, nausea Genitourinary: No dysuria; hematuria : No Musculoskeletal: back pain; No muscle pain Skin: No change in color, No lesions, No rash Psychiatric/Neurological: Denies Anxiety, Denies Depressed Physical Exam Vital Signs Vital Signs - First Documented 05/30/21 13:00 Temp 36.5 Pulse 90 Resp 20 B/P (MAP) 135/88 (104) Pulse Ox 98 O2 Delivery Room Air Capillary Refill : Less Than 3 Seconds Height, Weight, BMI Height: 5'7" Weight: 150lbs. oz. 68.771114yl; 26.00 BMI Method:Stated General Appearance: No Apparent Distress, WD/WN Eyes: Bilateral Eye Normal Inspection, Bilateral Eye PERRL, Bilateral Eye EOMI HEENT: Pharynx Normal, Moist Mucous Membranes Neck: Full Range of Motion, Normal Inspection, Non Tender, Supple Respiratory: Chest Non Tender, No Accessory Muscle Use, No Respiratory Distress Cardiovascular: Regular Rate, Rhythm, Normal Peripheral Pulses Gastrointestinal: Soft; No Distended, No Guarding; Tenderness (RUQ into epigastric, negative tejada sign) Rectal: Deferred Back: Normal Inspection, No CVA Tenderness Extremity: Normal Capillary Refill, Normal Range of Motion, No Pedal Edema Neurologic/Psychiatric: Alert, Oriented x3, regional training manager II-XII Norm as Tested Skin: Normal Color, Warm/Dry Lymphatic: No Adenopathy (cervical, axilla, groin) Data Review Labs Laboratory Tests 05/30/21 13:10: Urine Color YELLOW, Urine Clarity CLEAR, Urine pH 7.5, Urine Specific [place] 1.020, Urine Protein NEGATIVE, Urine Glucose (UA) NEGATIVE, Urine Ketones NEGATIVE, Urine Nitrite NEGATIVE, Urine Bilirubin NEGATIVE, Urine Urobilinogen 0.2, Urine Leukocyte Esterase NEGATIVE, Urine RBC (Auto) NEGATIVE, Urine RBC NONE, Urine WBC NONE, Urine Crystals PRESENTH, Urine Amorphous Sediment LARGE HENNA PHOSPHATEH, Urine Bacteria NEGATIVE, Urine Casts NONE, Urine Mucus NEGATIVE, Urine Culture Indicated NO 05/30/21 13:23: White Blood Count 6.5, Red Blood Count 4.67, Hemoglobin 13.6, Hematocrit 42, Mean Corpuscular Volume 90, Mean Corpuscular Hemoglobin 29, Mean Corpuscular Hemoglobin Concent 32, Red Cell Distribution Width 13.6, Platelet Count 263, Mean Platelet Volume 10.8, Immature Granulocyte % (Auto) 0, Neutrophils (%) (Auto) 50, Lymphocytes (%) (Auto) 37, Monocytes (%) (Auto) 6, Eosinophils (%) (Auto) 6, Basophils (%) (Auto) 1, Neutrophils # (Auto) 3.2, Lymphocytes # (Auto) 2.4, Monocytes # (Auto) 0.4, Eosinophils # (Auto) 0.4H, Basophils # (Auto) 0.1, Immature Granulocyte # (Auto) 0.0, Sodium Level 143, Potassium Level 4.1, Chloride Level 108H, Carbon Dioxide Level 23, Anion Gap 12, Blood Urea Nitrogen 18, Creatinine 0.80, Estimat Glomerular Filtration Rate 76, BUN/Creatinine Ratio 23, Glucose Level 77, Calcium Level 9.3, Corrected Calcium 9.1, Total Bilirubin 0.4, Aspartate Amino Transf (AST/SGOT) 20, Alanine Aminotransferase (ALT/SGPT) 16, Alkaline Phosphatase 58, Troponin I < 0.028, Total Protein 6.8, Albumin 4.2, Lipase 17 05/30/21 16:00: SARS-CoV-2 RNA (RT-PCR) Not Detected Radiology Date of Exam:05/30/21 CHEST 1 VIEW, AP/PA ONLY EXAMINATION: Chest 1 view HISTORY: chest pain COMPARISON: CT chest from 05/21/2021. FINDINGS: Heart size and pulmonary vasculature are normal. The lungs are clear without consolidation, pleural effusion, or pneumothorax. The osseous structures are intact. IMPRESSION: 1. No acute radiographic abnormality in the chest. Dictated by: Dictated on workstation # [id number] Dict: 05/30/21 1324 Trans: 05/30/21 1358 [id number] Interpreted by: KAILASH ROLAND DO Electronically signed by: KALIASH ROLAND DO 05/30/21 1358 Assessment/Plan Assessment/Plan Admission Diagonsis Cholelithiasis Admission Status: Observation Assessment/Plan Cholelithiasis Rheumatoid arthiritis chronic back pain NPO at midnight pain control antiemetic Patient had an Ultrasound performed at outside facility that showed 2.5 cm stone, in the face of her presenting symptoms I believe it is best to admit patient schedule for Lap vikash w/ IOC and all other indicated procedures as indicated tomorrow. Discussed with patient risks and benefits of operation, she understands and wishes to proceed. GOKUL PARRA DO 05/30/21 2013: History of Present Illness History of Present Illness Reason for visit/HPI Chief complaint right upper quadrant epigastric abdominal pain. Patient is a 50-year-old female who presented emergency department with right upper quadrant epigastric abdominal pain with nausea and vomiting and diarrhea. Patient states has been going on for couple weeks. Is continued to worsen. She has pain that is sharp and constant. Its wraps around her right side to her back. The right upper quadrant pain has been going on for about 6 weeks with recent worsening symptoms. Started off waxing and waning and continued to worsen. She was given tramadol which she states did help initially keep the pain under control however now it is to the point where it is not really helping. She has some food avoidance. She has had very limited intake. She states she is lost approximately 20 pounds over the last month just due to not wanting to eat and she is cut down to 1 meal per day. Patient with no other complaints. Patient had a CT scan previously which demonstrated cholelithiasis. On outpatient basis she was ordered a gallbladder ultrasound at an outside facility which she reports having gallstones. Patient with nausea and emesis. She denies any fever sweats chills shortness of breath or chest pain at this time Allergies and Home Medications Allergies Coded Allergies: Penicillins (Verified Allergy, Mild, REDNESS/SWELLING AT INJECTION SITE, 04/09/19) Patient Home Medication List Home Medication List Reviewed: Yes Ascorbic Acid/Collagen Hydr (Collagen Plus Vit C Capsule) 1 Each Capsule, 1 EACH PO BIDPC, (Reported) Entered as Reported by: IAM MCMAHAN on 04/09/19 0915 Cyclobenzaprine HCl (Cyclobenzaprine HCl) 10 Mg Tablet, 10 MG PO Q8H PRN for SPASMS Prescribed by: HARRIET WICK on 12/16/20 1353 Docusate Sodium (Docusate Sodium) 100 Mg Capsule, 100 MG PO BID PRN for CONSTIPATION-1ST LINE Prescribed by: MIQUEL MUNGUIA on 04/20/19 07 Hydrocodone Bit/Acetaminophen (Lortab 7.5 Mg Tablet) 1 Ea Tablet, 2 EA PO Q6H PRN for Pain-See Instructions Prescribed by: MIQUEL MUNGUIA on 04/20/19 07 Ibuprofen (Ibu) 600 Mg Tablet, 600 MG PO Q6H PRN for PAIN-MODERATE Prescribed by: MIQUEL MUNGUIA on 04/20/19 07 Indomethacin (Indomethacin) 25 Mg Capsule, 25 MG PO UD Prescribed by: HARRIET WICK on 12/16/20 1353 Multivitamin (Multivitamins) 1 Each Capsule, 1 EACH PO DAILY, (Reported) Entered as Reported by: IAM MCMAHAN on 04/09/19 0915 Pantoprazole Sodium (Protonix) 40 Mg Tablet.dr, 40 MG PO DAILY Prescribed by: SAMSON DODGE on 05/21/21 1300 Simethicone (Simethicone) 80 Mg Tab.chew, 40 MG PO TID PRN for INDIGESTION 2ND LINE Prescribed by: MIQUEL MUNGUIA on 04/20/19 0706 Sucralfate (Carafate) 1 Gm Tablet, 1 GM PO ACHS Prescribed by: SAMSON DODGE on 05/21/21 1300 Tramadol HCl (Tramadol HCl) 50 Mg Tablet, 50 MG PO Q6H PRN for PAIN Prescribed by: SAMSON DODGE on 05/21/21 1300 Past Twclzgh-Dfmmdb-Yqtqjz Hx Patient Social History Tobacco Use?: No Use of E-Cig and/or Vaping dev: No Substance use?: No Alcohol Use?: Yes Alcohol Frequency: Once in a while Past Medical History Surgeries: Section, Hysterectomy (partial), Orthopedic (back), Tonsillectomy Family Medical History Reviewed Nursing Family Hx No Pertinent Family Hx Review of Systems Constitutional: chills, dizziness; No fever; weakness EENTM: ear pain (left ear); No blurred vision Respiratory: No cough, No dyspnea on exertion; short of breath (due to pain) Cardiovascular: No chest pain, No palpitations Gastrointestinal: abdominal pain (RUQ), diarrhea, loss of appetite, nausea, vomiting Genitourinary: No dysuria; hematuria : No Musculoskeletal: back pain; No muscle pain Skin: No change in color, No lesions, No rash All Other Systems Reviewed Negative Unless Noted: Yes (Negative excepted noted.) Physical Exam General Appearance: No Apparent Distress, WD/WN HEENT: PERRL/EOMI, Normal ENT Inspection, Moist Mucous Membranes Neck: Non Tender, Supple Respiratory: Chest Non Tender, No Accessory Muscle Use, No Respiratory Distress Cardiovascular: Regular Rate, Rhythm, No JVD Gastrointestinal: Soft; No Distended, No Guarding; Tenderness (RUQ into epigastric) Rectal: Deferred Back: Normal Inspection, No CVA Tenderness Extremity: Normal Capillary Refill, Normal Range of Motion Neurologic/Psychiatric: Alert, Oriented x3, regional training manager II-XII Norm as Tested Skin: Normal Color, Warm/Dry Lymphatic: No Adenopathy (cervical, axilla, groin) Assessment/Plan Assessment/Plan Admission Diagonsis Right upper quadrant/epigastric abdominal pain Symptomatic cholelithiasis Nausea and vomiting Admission Status: Observation Assessment/Plan Right upper quadrant/epigastric abdominal pain Symptomatic cholelithiasis Nausea and vomiting RA Chronic back pain Patient had an Ultrasound performed at outside facility that showed 2.5 cm stone, with her presenting symptoms I believe it is best to admit patient schedule for Lap vikash w/ IOC and all other indicated procedures as indicated tomorrow. Discussed with patient risks and benefits of operation, she understands and wishes to proceed. NPO, IV hydration, Pain control. Consent for procedure. To OR tomorrow. Supervisory-Addendum Brief Verification & Attestation Participated in pt care: history, MDM, physical Personally performed: exam, history, MDM, supervision of care Care discussed with: Medical Student Procedures: n/a Results interpretation: Verified all documentation Verification and Attestation of Medical Student E/M Service A medical student performed and documented this service in my presence. I reviewed and verified all information documented by the medical student and made modifications to such information, when appropriate. I personally performed the physical exam and medical decision making. Gokul Parra, May 30, 2021,20:24 [facility] MED STUDENT May 30, 2021 15:41 GOKUL PARRA DO May 30, 2021 20:13
[2021-05-30 20:43] VITALS: BP 96/51
[2021-05-31] VITALS (11 sets, daily range): BP systolic 111–158; BP diastolic 58–88
[2021-05-31] MEDS: fentaNYL INJ 100 MCG/2 ML AMP IVP PRN ×3 (02:01→15:07)
[2021-05-31] MEDS: NS IV 1000 ML 1,000 ML IV SCH (03:18)
--- NOTE | 2021-05-31 07:18 | Progress Note - Surgery ---
[facility] MED STUDENT 05/31/21 0718: Subjective Date Seen by a Provider: May 31, 2021 Time Seen by a Provider: 06:50 Subjective/Events-last exam Patient is seen at bedside. She states she felt "sick" overnight, she reports she was having diarrhea and nausea. Her RUQ pain is well controlled at a 4/10. She does report being awoken from sleep due to pain in her "esophagus" and having a metallic taste in her mouth. She is NPO at this time, she is urinating appropriately. Review of Systems General: Chills, Night Sweats HEENT: No Visual Changes, No Sinus Congestion Pulmonary: No Cough, No Pleuritic Chest Pain Cardiovascular: No: Chest Pain, Palpitations Gastrointestinal: Nausea, Abdominal Pain, Diarrhea; No: Vomiting Genitourinary: No Dysuria, No Hematuria Musculoskeletal: back pain Neurological: No: Change in speech, Confusion Objective Exam Vital Signs Date Time Temp Pulse Resp B/P (MAP) Pulse Ox O2 Delivery O2 Flow Rate FiO2 05/31/21 04:17 36.2 60 16 112/72 (85) 97 Room Air 05/31/21 00:21 36.6 58 18 111/58 (75) 96 Room Air 05/30/21 20:43 36.5 55 20 96/51 (66) 97 Room Air 05/30/21 20:11 100 Room Air 05/30/21 18:32 100 Room Air 05/30/21 15:30 36.3 62 20 123/57 (79) 100 Room Air 05/30/21 15:05 36.4 60 18 113/80 98 Room Air 05/30/21 13:00 36.5 90 20 135/88 (104) 98 Room Air I & O 05/31/21 07:00 Intake Total 2000 ml Balance 2000 ml Capillary Refill : Less Than 3 Seconds General Appearance: No Apparent Distress, WD/WN HEENT: PERRL/EOMI, Normal ENT Inspection, Moist Mucous Membranes Neck: Non Tender, Supple Respiratory: Chest Non Tender, No Accessory Muscle Use, No Respiratory Distress Cardiovascular: Regular Rate, Rhythm, No JVD Gastrointestinal: normal bowel sounds, soft, no organomegaly, no pulsatile mass, tenderness (Right upper quadrant tenderness, epigastric tenderness) Extremity: Normal Capillary Refill, Normal Range of Motion Neurologic/Psychiatric: Alert, Oriented x3, magnetic doctor II-XII Norm as Tested Skin: Normal Color, Warm/Dry Lymphatic: No Adenopathy (cervical, axilla, groin) Results Lab Laboratory Tests 05/30/21 13:10: Urine Color YELLOW, Urine Clarity CLEAR, Urine pH 7.5, Urine Specific [place] 1.020, Urine Protein NEGATIVE, Urine Glucose (UA) NEGATIVE, Urine Ketones NEGATIVE, Urine Nitrite NEGATIVE, Urine Bilirubin NEGATIVE, Urine Urobilinogen 0.2, Urine Leukocyte Esterase NEGATIVE, Urine RBC (Auto) NEGATIVE, Urine RBC NONE, Urine WBC NONE, Urine Crystals PRESENTH, Urine Amorphous Sediment LARGE HENNA PHOSPHATEH, Urine Bacteria NEGATIVE, Urine Casts NONE, Urine Mucus NEGATIVE, Urine Culture Indicated NO 05/30/21 13:23: White Blood Count 6.5, Red Blood Count 4.67, Hemoglobin 13.6, Hematocrit 42, Mean Corpuscular Volume 90, Mean Corpuscular Hemoglobin 29, Mean Corpuscular Hemoglobin Concent 32, Red Cell Distribution Width 13.6, Platelet Count 263, Mean Platelet Volume 10.8, Immature Granulocyte % (Auto) 0, Neutrophils (%) (Auto) 50, Lymphocytes (%) (Auto) 37, Monocytes (%) (Auto) 6, Eosinophils (%) (Auto) 6, Basophils (%) (Auto) 1, Neutrophils # (Auto) 3.2, Lymphocytes # (Auto) 2.4, Monocytes # (Auto) 0.4, Eosinophils # (Auto) 0.4H, Basophils # (Auto) 0.1, Immature Granulocyte # (Auto) 0.0, Sodium Level 143, Potassium Level 4.1, Chloride Level 108H, Carbon Dioxide Level 23, Anion Gap 12, Blood Urea Nitrogen 18, Creatinine 0.80, Estimat Glomerular Filtration Rate 76, BUN/Creatinine Ratio 23, Glucose Level 77, Calcium Level 9.3, Corrected Calcium 9.1, Total Bilirubin 0.4, Aspartate Amino Transf (AST/SGOT) 20, Alanine Aminotransferase (ALT/SGPT) 16, Alkaline Phosphatase 58, Troponin I < 0.028, Total Protein 6.8, Albumin 4.2, Lipase 17 05/30/21 16:00: SARS-CoV-2 RNA (RT-PCR) Not Detected Assessment/Plan Assessment/Plan Assessment/Plan Right upper quadrant/epigastric abdominal pain Symptomatic cholelithiasis Nausea and vomiting GERD RA Chronic back pain Plan to go to OR this am, plan to DC later this afternoon believe patient would benefit some from protonix on DC and possible discuss GERD work up at 2 week follow post Lap vikash. GOKUL REICH DO 05/31/21 1131: Subjective Subjective/Events-last exam Nausea overnight. Pain controlled. NPO. Some Gerd symptoms. Denies fever sweats chills shortness of breath or chest pain. Objective Exam General Appearance: No Apparent Distress, WD/WN HEENT: PERRL/EOMI, Normal ENT Inspection Neck: Full Range of Motion, Non Tender, Supple Respiratory: Chest Non Tender, No Accessory Muscle Use, No Respiratory Distress Cardiovascular: Regular Rate, Rhythm, No JVD Gastrointestinal: normal bowel sounds, soft, no organomegaly, tenderness (Right upper quadrant tenderness, epigastric tenderness) Extremity: Normal Capillary Refill, Normal Inspection, Normal Range of Motion Neurologic/Psychiatric: Alert, Oriented x3 Skin: Normal Color, Warm/Dry Lymphatic: No Adenopathy (cervical, axilla, groin) Assessment/Plan Assessment/Plan Assessment/Plan Right upper quadrant/epigastric abdominal pain Symptomatic cholelithiasis Nausea and vomiting GERD RA Chronic back pain Plan to go to OR this am, plan to DC later today likely. NPO Pain control. Supervisory-Addendum Brief Verification & Attestation Participated in pt care: history, MDM, physical Personally performed: exam, history, MDM, supervision of care Care discussed with: Medical Student Procedures: n/a Results interpretation: Verified all documentation Verification and Attestation of Medical Student E/M Service A medical student performed and documented this service in my presence. I reviewed and verified all information documented by the medical student and made modifications to such information, when appropriate. I personally performed the physical exam and medical decision making. Gokul Reich, May 31, 2021,11:31 [facility] MED STUDENT May 31, 2021 07:18 GOKUL REICH DO May 31, 2021 11:31
[2021-05-31] MEDS ORDERED: EVE1000C3 PO (10:05)
[2021-05-31] MEDS ORDERED: PRIMROSE PO (10:05)
[2021-05-31] MEDS ORDERED: ACET-2267 PO (10:05)
[2021-05-31] MEDS ORDERED: BLAC160C PO (10:05)
[2021-05-31] MEDS ORDERED: MULT-1136 PO (10:05)
[2021-05-31] MEDS ORDERED: CELE-63 PO (10:05)
[2021-05-31] MEDS ORDERED: PANT40TA52 PO (10:05)
[2021-05-31] MEDS ORDERED: LIDOCAINE/EPI 1%-1:100,000 (XYLOCAINE) 20ML ONE (10:34)
[2021-05-31] MEDS ORDERED: IOHEXOL 300 MG/ML 30 ML (OMNIPAQUE 300) VIAL INJ ONE (11:00)
[2021-05-31] MEDS ORDERED: CLINDAMYCIN 600 MG/50 ML IVPB 50 ML IV ONE (11:02)
[2021-05-31] MEDS: LACTATED RINGERS 1,000 ML IV PRN ×2 (11:09→12:24)
[2021-05-31] MEDS ORDERED: FAMOTIDINE 20MG/2ML IV (PEPCID) ONE (11:29)
[2021-05-31] MEDS ORDERED: FAMOTIDINE 20MG/2ML IV (PEPCID) IVP ONE (11:30)
[2021-05-31] MEDS ORDERED: LACTATED RINGERS 1,000 ML IV SCH (11:30)
[2021-05-31] MEDS ORDERED: MIDAZOLAM 2 MG/2 ML (VERSED) VIAL ONE (11:32)
[2021-05-31] MEDS ORDERED: fentaNYL INJ 100 MCG/2 ML AMP ONE ×2 (11:32→12:27)
[2021-05-31] MEDS ORDERED: ROCURONIUM 10 MG/ML 5 ML SYRINGE IV ONE (12:15)
[2021-05-31] MEDS ORDERED: ONDANSETRON 4 MG/2 ML (SDV) Z0FRAN ONE (12:15)
[2021-05-31] MEDS ORDERED: proPOfol 200 MG/20 ML (DIPRIVAN) VIAL IV ONE (12:15)
[2021-05-31] MEDS ORDERED: NEOSTIGMINE 3 MG/3 ML VIAL ONE (12:15)
[2021-05-31] MEDS ORDERED: GLYCOPYRROLATE 0.2 MG/ML (ROBINUL) 2 ML VIAL ONE (12:17)
[2021-05-31] MEDS ORDERED: SEVOFLURANE (ULTANE) 15 ML INHAL SOLN ONE (12:17)
--- NOTE | 2021-05-31 12:20 | Progress Note-Post Operative ---
Post-Operative Progess Note Surgeon (s)/[employer] Docent (s) Surgeon GOKUL PARRA DO [employer] Docent: Dr. Randall to assist in retraction dissection and closure. Pre-Operative Diagnosis symptomatic cholelithiasis Post-Operative Diagnosis same Procedure & Operative Findings Date of Procedure 05/31/21 Procedure Performed/Findings PROCEDURE: Laparoscopic cholecystectomy with intraoperative cholangiogram. COMPLICATIONS: None. PROCEDURE: The patient was taken to the operating suite and was prepped and draped in sterile fashion. A surgical pause was performed. Just superior to the umbilicus, a 12 mm incision was made. Dissection was taken down to the fascia, which was then scored and grasped with a Shun and the abdomen was then entered. A 0 Vicryl suture was placed in a [id number] fashion and a Mckeon trocar was placed and secured. Pneumoperitoneum was achieved. A 5mm trochar place in the subxyphoid and 2 in the right upper quadrant. The gallbladder was then grasped and elevated. The cystic duct, and cystic artery were then dissected out. Clip was placed on the distal portion of the cystic duct which was then partially transected. An arrow catheter was inserted into the duct. The cholangiogram was then performed. No filing defects and contrast made its way into the duodenum. Catheter removed. Clips were placed on proximal portion of the cystic duct and then the duct was then transected. Clips were placed along the proximal and distal portion of the cystic artery which was then transected. Hook cautery was used to dissect the gallbladder from the gallbladder fossa achieving hemostasis. The gallbladder was placed in an Endobag and removed through the 12 mm trocar site. The abdomen was then reinspected. Copious amounts of irrigation were used to irrigate the abdomen and there were no signs of active bleeding. Hemostasis had been achieved. The 12 mm fascial defect was then closed with 0 Vicryl suture that had been placed in a [id number]-[id number] fashion. The abdomen was then desufflated, the trocars were removed. The abdomen was then washed and dried. The skin was then closed using 4-0 Monocryl in a subcuticular fashion. The abdomen was washed and dried and Skin Affix was place over incisions. Patient tolerated the procedure well without any complications and was taken to the recovery room in stable condition. Anesthesia Type general Estimated Blood Loss Estimated blood loss (mL): minimal Specimens/Packing Specimens Removed gallbladder GOKUL PARRA 10, 2021 12:20
[2021-05-31] MEDS ORDERED: ACHD5005 PO (12:21)
[2021-05-31] MEDS ORDERED: DOCU-143 PO (12:21)
--- NOTE | 2021-05-31 12:24 | Discharge Inst-Simple/Standard ---
Discharge Inst-Standard Discharge Medications New, Converted or Re-Newed RX: Transmitted to Pharmacy Patient Instructions/Follow Up Plan of Care/Instructions/FU: 2 weeks Rachana Activity as Tolerated: No Discharge Diet: Regular Diet Other Inst to Patient Follow up Appt: Make appointment for 2 weeks. Instructions: No lifting greater than 10 pounds. No strenuous activity. May shower in 24 hours, no tub bath or soaking. Use incentive spirometer at home as directed. No Smoking Skin/Wound Care: You have special glue over incision, it will fall off on it's own. Symptoms to Report: Appetite Changes, Extremity Discoloration, Numbness/Tingling, Swelling Increased, Bleeding Excessive, Eyesight Changes, Pain Increased, Urine Color Change, Constipation(Persistent), Fever over 101 degree F, Pain/Pressure in chest, Urinating Difficulty, Cough Up/Vomit Blood, Heart Beat Irreg/Pounding, Pain/Pressure in jaw, Vaginal Bleeding Increase, Cramps in feet or legs, Lightheadedness, Pain/Pressure in shoulder, Diarrhea(Persistent), Memory Changes Suddenly, Questions/Concerns, Weight gain consecutive days, Dizziness/Fainting, Nausea/Vomiting, Shortness of Breath, Weight gain over 2 pounds. If eyes or skin turn yellow notify physician. If questions or concerns contact your physician Or seek help at emergency department. GOKUL PARRA DO May 31, 2021 12:24
[2021-05-31] MEDS ORDERED: ONDANSETRON 4 MG/2 ML (SDV) Z0FRAN IVP PRN (12:45)
[2021-05-31] MEDS ORDERED: HYDROmorphone 2 MG/ML VIAL (DILAUDID) IV ONE (12:45)
--- NOTE | 2021-05-31 14:05 | Diagnostic Imaging Report ---
INDICATION: Laparoscopic cholecystectomy. Operative cholangiogram performed in the routine fashion. 42 images were obtained. 9.9 seconds of fluoroscopy time was used. Contrast was injected through the cystic duct stump. Contrast fills the biliary tree. The biliary tree is nondilated. There are no filling defects. Contrast passes to the duodenum without obstruction. IMPRESSION: Unremarkable operative cholangiogram. Dictated by: Dictated on workstation # [id number]
--- NOTE | 2021-06-01 16:16 | Anesthesia-General Post-Op ---
General Patient Condition Mental Status/LOC: Same as Preop Cardiovascular: Satisfactory Nausea/Vomiting: Absent Respiratory: Satisfactory Pain: Controlled Complications: Absent Post Op Complications Complications None Follow Up Care/Instructions Patient Instructions None needed. Anesthesia/Patient Condition Patient Condition Patient is already discharged to home but she was doing well prior to her discharge with no complaints, stable vital signs, no apparent adverse anesthesia problems per nursing staff. RANJIT MENDEZ DO Jun 01, 2021 16:16
== END 2021-05-31 15:57 | disposition home or self-care (01) ==
LOC: EDUNIT# 12:46 → ER 12:50 → SDC 15:03 → 4TH 15:03 → UNDOADMOB 15:03 → 4TH 15:03 → SDC 05-31 15:57 → UNDODISOB 05-31 15:57
PROVIDERS: ATTEND Surgery
DX: K80.10 Calculus of gallbladder with chronic cholecystitis without obstruction (principal); K21.9 Gastro-esophageal reflux disease without esophagitis; K59.09 Other constipation; M06.9 Rheumatoid arthritis, unspecified; M54.50 Low back pain, unspecified; Z79.891 Long term (current) use of opiate analgesic; Z79.899 Other long term (current) drug therapy; Z88.0 Allergy status to penicillin; Z20.822 Contact with and (suspected) exposure to COVID-19; Z11.2 Encounter for screening for other bacterial diseases
CPT/HCPCS: 36415; 71045; 76000; 80053; 81000; 83690; 84484; 85025; 87081; 87636; 88304; 93005; 96361; 96374

== ENCOUNTER 2021-08-09 05:29 | Outpatient (RCR) | payer OTHER ==
[~2021-08-09] VITALS: Ht 170.2 cm; Wt 76.3 kg
[~2021-08-09 05:29] MED LIST changes: +ACET-2267 PO; +ACHD5005 PO; +BLAC160C PO; +CELE-63 PO; +CYCL10TA25 PO; -CYCL10TA9 PO; +DOCU-143 PO; +ESTR0.62 PO; +EVE1000C3 PO; +MULT-1136 PO; +PANT40TA52 PO; +PRIMROSE PO; +TIZA2CAP9 PO
== END 2021-08-09 11:04 | disposition home health service, planned readmission (86) ==
LOC: PREOP 05:29
PROVIDERS: ATTEND Internal Medicine
DX: Z01.812 Encounter for preprocedural laboratory examination (principal); K21.9 Gastro-esophageal reflux disease without esophagitis; Z20.822 Contact with and (suspected) exposure to COVID-19
CPT/HCPCS: 87635

== ENCOUNTER 2021-08-11 08:49 | Day surgery (SDC) | payer OTHER ==
--- NOTE | 2021-08-04 21:43 | HISTORY AND PHYSICAL ---
DATE OF SERVICE: PANENDOSCOPY HISTORY AND PHYSICAL DATE OF ADMISSION: HISTORY OF PRESENT ILLNESS: The patient is a 51-year-old white female being set up for screening colonoscopy, her first. She is deemed to be of higher than average risk as her mother was diagnosed with colon cancer in her early 60s and succumbed to the disease at 64. The patient is also being set up for diagnostic EGD as she reports a long history of reflux and she has been having increased epigastric pain with bloating. It has gotten worse since she underwent cholecystectomy in April of last year, with that, she has had some intermittent diarrhea. She had one episode of rectal bleeding with the diarrhea predominantly; there has not been blood in her stool. She had had a previous hysterectomy for benign reasons, was also complaining of increased hot flashes and brain fog that she had initially attributed to COVID infection, now about a year ago. She saw Dr. Theodore, who had initiated estrogen replacement about one month ago with Premarin 0.45 mg and she reports some improvement in symptoms. Still having some hot flashes, but is overall sleeping a little better. She denies dysphagia or odynophagia, choking or cough. PHYSICAL EXAMINATION: GENERAL: Reveals a white female, anxious, but in no acute distress. VITAL SIGNS: Blood pressure 114/78, weight was down 2 pounds, 170. HEENT: Unremarkable. Sclerae nonicteric. No evidence for pallor. CHEST: Clear to auscultation. CARDIOVASCULAR: Reveals a regular rate and rhythm without murmur, S3 or S4. ABDOMEN: Soft, supple and nondistended. She has epigastric pain to palpation with guarding as well as right upper quadrant abdominal pain to palpation. There are well-healed trocar sites. No mass or organomegaly noted. No bruits noted. Bowel sounds positive. EXTREMITIES: Reveal no cyanosis, clubbing or edema. ASSESSMENT AND PLAN: The patient is being set up for screening colonoscopy, deemed to be of higher than average risk as her mother was diagnosed with colon cancer around the age of 60. Prep instructions with Suprep kit were given and questions were answered. She will be undergoing diagnostic EGD due to heartburn and epigastric pain with change in bowel habits. If unremarkable, we will likely initiate bile acid sequestra into medication as her symptoms have gotten worse, but would also need to entertain irritable bowel syndrome if there is no evidence for enteric inflammation or other abnormalities to explain her symptoms. The patient is scheduled for followup in two months. Job ID: [id number] DocumentID: [id number] Dictated Date: 08/03/2021 13:26:35 [employer] Date: 08/03/2021 13:38:45 Dictated By: ADELE WOOD MD
[~2021-08-11] VITALS: Ht 170 cm; Wt 76.0 kg
[2021-08-11] MEDS ORDERED: LACTATED RINGERS 1,000 ML IV ONE (08:53)
[2021-08-11] MEDS ORDERED: LACTATED RINGERS 1,000 ML IV STA (09:05)
[2021-08-11 09:15] VITALS: BP 104/66
[2021-08-11] MEDS ORDERED: LIDOCAINE JELLY 2% 6 ML SYRINGE MM PRN (09:15)
[2021-08-11] MEDS ORDERED: HURRICAINE EXT TUBE (BENZOCAINE) XX PRN (09:15)
--- NOTE | 2021-08-11 10:36 | Pre-Op Note & Conscious Sedat ---
Pre-Operative Progress Note H&P Reviewed The H&P was reviewed, patient examined and no changes noted. Date H&P Reviewed: Aug 11, 2021 Time H&P Reviewed: 10:30 Conscious Sedation Pre-Proced ASA Score 2 For ASA 3 and 4: Consider anesthesia and medical clearance. Also, for patients with a history of failed moderate sedation consider anesthesia. Airway Lungs Heart ASA score ASA 1: a normal healthy patient ASA 2: a patient with a mild systemic disease (mid diabetes, controlled hypertension, obesity ASA 3: a patient with a severe systemic disease that limits activity (angina, COPD, prior Myocardial infarction) ASA 4: a patient with an incapacitating disease that is a constant threat to life (CHF, renal failure) ASA 5: a moribund patient not expected to survive 24 hrs. (ruptured aneurysm) ASA 6: a declared brain- patient whose organs are being harvested. For emergent operations, add the letter E after the classification Mallampati Classification Grade 2 Sedation Plan Analgesia, Amnesia, Plan communicated to team members, Discussed options with patient/fam, Discussed risks with patient/fam The patient is an appropriate candidate to undergo the planned procedure, sedation, and anesthesia. The patient immediately re-assessed prior to indication. ADELE WOOD MD Aug 11, 2021 10:36
[2021-08-11] MEDS ORDERED: PROPOFOL INJECTION 50 ML IV ONE (10:41)
--- NOTE | 2021-08-11 11:19 | Anesthesia-General Post-Op ---
MAC Patient Condition Mental Status/LOC: Same as Preop Cardiovascular: Satisfactory Nausea/Vomiting: Absent Respiratory: Satisfactory Pain: Controlled Complications: Absent Post Op Complications Complications None Follow Up Care/Instructions Patient Instructions None needed. Anesthesiology Discharge Order Discharge Order Patient is doing well, no complaints, stable vital signs, no apparent adverse anesthesia problems. No complications reported per nursing. ASIF ROYAL CRNA Aug 11, 2021 11:19
[2021-08-11 11:25] VITALS: BP 127/72
[2021-08-11 11:52] VITALS: BP 127/72
--- NOTE | 2021-08-11 14:30 | OPERATIVE REPORT ---
DATE OF SERVICE: PANENDOSCOPY SUMMARY INDICATION FOR THE EGD: Left upper quadrant abdominal pain with gastroesophageal reflux symptoms. DESCRIPTION OF PROCEDURE: The patient was placed in the left lateral decubitus position. The endoscope was inserted in the oral cavity and under direct visualization, esophagus was intubated. The endoscope was passed down the esophagus through stomach and into the second portion of the duodenum. Careful inspection was made as the endoscope was withdrawn. FINDINGS: The proximal and mid esophagus were unremarkable. There is a proximal 2 cm hiatal hernia with a 3-4 cm of the stomach being present above the level of the diaphragm. There was no evidence for Grover's change or erosive esophagitis, the-Z line was distinct and unremarkable. There are findings suggesting likely Bri fundoplication, cardia was otherwise unremarkable. The fundus was unremarkable. The antrum did reveal dependently areas of erythema without ulceration. Biopsies obtained and submitted for histopathology. The pylorus, pyloric channel, the duodenal bulb and second portion of duodenum were unremarkable. ASSESSMENT: Antral gastritis was present. Biopsies were obtained and submitted for histopathology and Helicobacter evaluation, very well may be nonsteroidal related. This patient does take 200 mg of Celebrex twice daily. There was approximately 2 cm hiatal hernia with several centimeters of the stomach being present above the level of the diaphragm. There was no evidence for erosive esophagitis. No evidence for Grover's change was noted. TECHNIQUE: We then proceeded with screening colonoscopy. The colonoscope was inserted into the rectum and under direct visualization advanced to cecum. Cecum was identified by identification of ileocecal valve and cecal strap. Photographic documentation was obtained. Careful inspection was made as the scope was withdrawn. The quality of prep was fair. FINDINGS: Several small grade I internal hemorrhoid complexes were noted with lot of telangiectatic vessels in the distal rectum. There was no evidence for blood, no evidence for external hemorrhoids were noted. Digital rectal evaluation of the anal canal and distal rectal vault were unremarkable. The rectum, sigmoid colon, descending colon, splenic flexure, transverse colon, hepatic flexure, ascending colon, and cecum were unremarkable. ASSESSMENT: Some telangiectatic blood vessels noted in the anal canal with several small grade I internal hemorrhoid complexes. This is an otherwise normal colonoscopy to cecum with no evidence for neoplasia. As the patient was having diarrhea, we did obtain a biopsy from the rectum to evaluate for underlying microscopic colitis. If this is not present, we will first advise the patient discontinue nonsteroidal therapy if diarrhea persists, she has had cholecystectomy, would first try colestipol 1 gram prior to meals. Job ID: [id number] DocumentID: [id number] Dictated Date: 08/11/2021 11:30:28 Child Welfare Caseworker Date: 08/11/2021 14:29:54 Dictated By: ADELE WOOD MD
== END 2021-08-11 12:00 | disposition home or self-care (01) ==
LOC: ENDO 08:49
PROVIDERS: ATTEND Internal Medicine
DX: Z12.11 Encounter for screening for malignant neoplasm of colon (principal); K21.9 Gastro-esophageal reflux disease without esophagitis; K29.60 Other gastritis without bleeding; K44.9 Diaphragmatic hernia without obstruction or gangrene; K64.0 First degree hemorrhoids; Z79.899 Other long term (current) drug therapy; Z87.891 Personal history of nicotine dependence; Z86.16 Personal history of COVID-19
CPT/HCPCS: 88305

== ENCOUNTER 2021-09-05 18:54 | Emergency (ER) | payer OTHER ==
[~2021-09-05] VITALS: Ht 170 cm; Wt 76.0 kg
[2021-09-05] MEDS ORDERED: TIZA-169 (19:18)
[2021-09-05 19:26] LABS: BILIRUBIN,URINE NEGATIVE (NEGATIVE); CLARITY,URINE CLEAR; COLOR,URINE YELLOW; GLUCOSE, URINE (UA) NEGATIVE (NEGATIVE); KETONES,URINE NEGATIVE (NEGATIVE); LEUKOCYTE ESTERASE ,URINE NEGATIVE (NEGATIVE); NITRITE,URINE NEGATIVE (NEGATIVE); PROTEIN,URINE NEGATIVE (NEGATIVE)
[2021-09-05] MEDS ORDERED: fentaNYL INJ 100 MCG/2 ML AMP IVP STA (19:32)
[2021-09-05] MEDS ORDERED: NS IV 1000 ML 1,000 ML IV STA (19:32)
--- NOTE | 2021-09-05 19:39 | ED Abdominal Pain ---
General Chief Complaint: Abdominal/GI Problems Stated Complaint: ABDOMINAL PAIN Nursing Triage Note: sharp luq abdominal pain since cholecystectomy 06/11. worse last 2 weeks. Source of Information: Patient Exam Limitations: No Limitations History of Present Illness Date Seen by Provider: Sep 05, 2021 Time Seen by Provider: 19:37 Initial Comments Patient is a 51-year-old female presents ED with left upper quad abdominal pain. Pain since Halloween. Pain has been intermittent. Worsening pain over the past 2 weeks. Described as sharp with radiation to her left flank, left lower abdomen. Recent cholecystectomy. She reports nausea without vomiting. Intermittent diarrhea. Severe pain. Has been taking Tylenol without much improvement. Saw Dr. Cisneros today scheduled to follow-up with Dr. Reich tomorrow. Patient was recommended come to ED for further evaluation. No chest pain, shortness of breath, dysuria, hematuria. She had a recent EGD and colonoscopy negative for peptic ulcer disease. Internal hemorrhoids noted. Denies any dark tarry stool. No history of inflammatory bowel disease. Allergies and Home Medications Allergies Coded Allergies: Penicillins (Verified Allergy, Mild, REDNESS/SWELLING AT INJECTION SITE, 04/09/19) Patient Home Medication List Home Medication List Reviewed: Yes Estrogens, Conjugated (Premarin) 0.625 Mg Tablet, 0.625 MG PO DAILY, (Reported) Entered as Reported by: MUSHTAQ AVINA on 08/07/21 130 Hydrocodone/Acetaminophen (Hydrocodone-Acetamin 7.5-325) 1 Each Tablet, 1 EACH PO Q4H Prescribed by: GINGER PEARSON on 09/05/212149 Ondansetron (Ondansetron Odt) 4 Mg Tab.rapdis, 4 MG PO Q4H Prescribed by: GINGER PEARSON on 09/05/212149 Tizanidine HCl (Tizanidine HCl) 2 Mg Capsule, 2 MG PO DAILY, (Reported) Entered as Reported by: MUSHTAQ AVINA on 08/07/21 1308 Tizanidine HCl (Tizanidine HCl) 2 Mg Tablet, (Reported) Entered as Reported by: KAILASH BARAJAS on 09/05/211917 Last Action: New Order Review of Systems Review of Systems Constitutional: No chills, No diaphoresis, No fever, No malaise, No weakness EENTM: No Double Vision, No Ear Pain, No Mouth Pain Respiratory: Denies Cough, Denies Orthopnea Cardiovascular: Denies Chest Pain, Denies Edema Gastrointestinal: Abdominal Pain; Denies Blood Streaked Stools Genitourinary: Denies Burning, Denies Discharge Musculoskeletal: No back pain, No joint pain Skin: No change in color, No change in hair/nails Psychiatric/Neurological: Denies Anxiety Past Miumcte-Phpzpd-Geohwb Hx Patient Social History Tobacco Use?: No Substance use?: No Alcohol Use?: Yes Alcohol Frequency: Once in a while Pt feels they are or have been: No Immunizations Up To Date First/Initial COVID19 Vaccinat: OCTOBER 2020 Second COVID19 Vaccination Salvatore: NOVEMBER 2020 Third COVID19 Vaccination Date: DECEMBER 2020 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 Surgeries: Yes (LOWER BACK, SPHINCTEROTOMY ) Section, Hysterectomy, Orthopedic, Tonsillectomy Respiratory: No Currently Using CPAP: No Currently Using BIPAP: No Cardiac: No Neurological: No Female 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 REHAB LIAISON History: Hysterectomy Sexually Transmitted Disease: No HIV/AIDS: No Genitourinary: No Gastrointestinal: Yes Gastroesophageal Reflux, Chronic Constipation Musculoskeletal: Yes (NO MEDS FOR RA FOR 3 YEARS, JOINT PAIN) Rheumatoid Arthritis, Chronic Back Pain Endocrine: No HEENT: Yes (READING GLASSES) Loss of Vision: Denies Hearing Impairment: Denies Cancer: No Psychosocial: No Integumentary: No Blood Disorders: No Adverse Reaction/Blood Tranf: No (N/A) Family Medical History No Pertinent Family Hx Physical Exam Vital Signs Vital Signs - First Documented 09/05/21 19:09 Temp 36.6 Pulse 72 Resp 18 B/P (MAP) 114/73 (87) Pulse Ox 99 O2 Delivery Room Air Capillary Refill : Less Than 3 Seconds Height/Weight/BMI Height: 5'7" Weight: 150lbs. oz. [id number]; 26.00 BMI Method:Stated General Appearance: WD/WN, no apparent distress HEENT: PERRL/EOMI, normal ENT inspection, TMs normal, pharynx normal Neck: non-tender, full range of motion, supple, normal inspection Respiratory: chest non-tender, lungs clear, normal breath sounds, no respiratory distress, no accessory muscle use Cardiovascular: regular rate, rhythm, no edema, no gallop, no JVD Gastrointestinal: normal bowel sounds, soft, no organomegaly, no pulsatile mass, other (Left upper quadrant tenderness) Extremities: normal range of motion, non-tender, normal inspection Back: normal inspection, no CVA tenderness, no vertebral tenderness Neurologic/Psychiatric: steel burner II-XII nml as tested, no motor/sensory deficits, alert, normal mood/affect, oriented x 3 Progress/Results/Core Measures Results/Orders Lab Results Laboratory Tests Test 09/05/21 19:17 09/05/21 19:50 Range/Units Urine Color YELLOW Urine Clarity CLEAR Urine pH 6.0 5-9 Urine Specific [place] <=1.005 1.016-1.022 Urine Protein NEGATIVE NEGATIVE Urine Glucose (UA) NEGATIVE NEGATIVE Urine Ketones NEGATIVE NEGATIVE Urine Nitrite NEGATIVE NEGATIVE Urine Bilirubin NEGATIVE NEGATIVE Urine Urobilinogen 0.2 < = 1.0 MG/DL Urine Leukocyte Esterase NEGATIVE NEGATIVE Urine RBC (Auto) TRACE-I H NEGATIVE Urine RBC RARE /HPF Urine WBC NONE /HPF Urine Squamous Epithelial Cells 0-2 /HPF Urine Crystals NONE /LPF Urine Bacteria TRACE /HPF Urine Casts NONE /LPF Urine Mucus SMALL H /LPF Urine Culture Indicated NO White Blood Count 5.5 4.3-11.0 10^3/uL Red Blood Count 4.53 3.80-5.11 10^6/uL Hemoglobin 13.6 11.5-16.0 g/dL Hematocrit 42 35-52 % Mean Corpuscular Volume 93 80-99 fL Mean Corpuscular Hemoglobin 30 25-34 pg Mean Corpuscular Hemoglobin Concent 32 32-36 g/dL Red Cell Distribution Width 13.0 10.0-14.5 % Platelet Count 264 130-400 10^3/uL Mean Platelet Volume 10.8 9.0-12.2 fL Immature Granulocyte % (Auto) 0 % Neutrophils (%) (Auto) 47 42-75 % Lymphocytes (%) (Auto) 37 12-44 % Monocytes (%) (Auto) 9 0-12 % Eosinophils (%) (Auto) 6 0-10 % Basophils (%) (Auto) 1 0-10 % Neutrophils # (Auto) 2.6 1.8-7.8 10^3/uL Lymphocytes # (Auto) 2.0 1.0-4.0 10^3/uL Monocytes # (Auto) 0.5 0.0-1.0 10^3/uL Eosinophils # (Auto) 0.3 0.0-0.3 10^3/uL Basophils # (Auto) 0.1 0.0-0.1 10^3/uL Immature Granulocyte # (Auto) 0.0 0.0-0.1 10^3/uL Sodium Level 140 135-145 MMOL/L Potassium Level 3.4 L 3.6-5.0 MMOL/L Chloride Level 105 98-107 MMOL/L Carbon Dioxide Level 25 21-32 MMOL/L Anion Gap 10 5-14 MMOL/L Blood Urea Nitrogen 10 7-18 MG/DL Creatinine 0.84 0.60-1.30 MG/DL Estimat Glomerular Filtration Rate 84 BUN/Creatinine Ratio 12 Glucose Level 73 70-105 MG/DL Calcium Level 9.1 8.5-10.1 MG/DL Corrected Calcium 9.1 8.5-10.1 MG/DL Total Bilirubin 0.3 0.1-1.0 MG/DL Aspartate Amino Transf (AST/SGOT) 14 5-34 U/L Alanine Aminotransferase (ALT/SGPT) 8 0-55 U/L Alkaline Phosphatase 62 40-136 U/L Total Protein 6.7 6.4-8.2 GM/DL Albumin 4.0 3.2-4.5 GM/DL Lipase 18 8-78 U/L My Orders Orders - JAYDEN JAEGER Ua Culture If Indicated (09/05/21 19:00) Cbc With Automated Diff (09/05/21 19:31) Comprehensive Metabolic Panel (09/05/21 19:31) Lipase (09/05/21 19:31) Ct Abdomen/Pelvis W (09/05/21 19:31) Ns Iv 1000 Ml (Sodium Chloride 0.9%) (09/05/21 19:32) Ondansetron Injection (Zofran Injectio (09/05/21 19:45) Fentanyl Inj (Sublimaze Injection) (09/05/21 19:32) Morphine Injection (Morphine Injection (09/05/21 20:30) Promethazine Injection (Phenergan Injec (09/05/21 20:30) Iohexol Injection (Omnipaque 350 Mg/Ml 1 (09/05/21 20:45) Received Contrast (Hold Metformin- Contr (09/05/21 20:45) Ns (Ivpb) (Sodium Chloride 0.9% Ivpb Bag (09/05/21 20:45) Hydromorphone Injection (Dilaudid Inject (09/05/21 21:30) Ketorolac Injection (Toradol Injection) (09/05/21 21:30) Rx-Hydrocodone/Apap 5-325 Mg (Rx-Vicodin (09/05/21 22:00) Medications Given in ED Current Medications Medications Dose Ordered Sig/Dolly Route Start Time Stop Time Status Last Admin Dose Admin Acetaminophen/ Hydrocodone Bitart 1 ea Q4H PRN PO 09/05/21 22:00 09/05/21 21:56 DC 09/05/21 21:52 1 EA Hydromorphone HCl 1 mg ONCE ONCE IV 09/05/21 21:30 09/05/21 21:31 DC 09/05/21 21:27 1 MG Iohexol 100 ml ONCE ONCE IV 09/05/21 20:45 09/05/21 20:46 DC 09/05/21 20:50 96 ML Ketorolac Tromethamine 30 mg ONCE ONCE IVP 09/05/21 21:30 09/05/21 21:31 DC 09/05/21 21:27 30 MG Morphine Sulfate 4 mg ONCE ONCE IVP 09/05/21 20:30 09/05/21 20:31 DC 09/05/21 20:22 4 MG Ondansetron HCl 4 mg ONCE ONCE IVP 09/05/21 19:45 09/05/21 19:46 DC 09/05/21 19:52 4 MG Promethazine HCl 25 mg ONCE ONCE IVP 09/05/21 20:30 09/05/21 20:31 DC 09/05/21 20:33 25 MG Sodium Chloride 100 ml ONCE ONCE IV 09/05/21 20:45 09/05/21 20:46 DC 09/05/21 20:50 80 ML Vital Signs/I&O 09/05/21 09/05/21 19:09 21:52 Temp 36.6 36.5 Pulse 72 63 Resp 18 16 B/P (MAP) 114/73 (87) 110/59 Pulse Ox 99 97 O2 Delivery Room Air Room Air Blood Pressure Mean: 87 Departure Communication (Admissions) Patient with ongoing pain to her left upper quadrant since . Radiating pain to the left flank and to the left lower quadrant. Worsening pain over the past 2 weeks. Pain became more severe this evening and was recommended to come to ED by GI/surg. Patient does have tenderness to the left upper quadrant. No left flank tenderness, thoracic or lumbar midline tenderness. Nausea without vomiting. Intermittent diarrhea. Lab work was otherwise unremarkable here. No chest pain, cough or shortness of breath. Pain is not increased with eating. Recent EGD and colonoscopy this past month that did show some internal hemorrhoids. Pathology of the stomach and colon was negative for helicobacter pylori or gastritis. No evidence of peptic ulcer or mas She had a cholecystectomy this past year, but this did not improve the pain. CT abdomen pelvis negative for acute abnormality. Urinalysis with mild hematuria. Difficulty controlling pain here in the ED. Discussed patient with Dr. Cisneros her primary care physician. Concern for more radiculopathy type pain. Attempting to get outpatient pain management. Patient was given Toradol, narcotics here in the ED with some improvement of pain. Request to be discharged. Will discharge with pain medication and nausea medication. She is scheduled follow-up with Dr. Reich tomorrow. If any worsening symptoms return back to ED for further evaluation Impression Primary Impression: Abdominal pain Disposition: 01 HOME, SELF-CARE Condition: Stable Departure-Patient Inst. Decision time for Depature: 21:49 Referrals: ADELE CISNEROS MD (PCP) Primary Care Physician Patient Instructions: Acute Pain, Adult Scripts Ondansetron (Ondansetron Odt) 4 Mg Tab.rapdis 4 MG PO Q4H, #10 TAB Prov: JAYDEN JAEGER 09/05/21 Hydrocodone/Acetaminophen (Hydrocodone-Acetamin 7.5-325) 1 Each Tablet 1 EACH PO Q4H, #8 TAB Prov: JAYDEN JAEGER 09/05/21 JAYDEN JAEGER Sep 05, 2021 19:39
[2021-09-05] MEDS ORDERED: ONDANSETRON 4 MG/2 ML (SDV) Z0FRAN IVP ONE (19:45)
[2021-09-05 19:56] LABS: BACTERIA,URINE TRACE /HPF; RBC,URINE RARE /HPF; SQUAMOUS EPITHELIAL CELL,UR 0-2 /HPF
[2021-09-05 20:07] LABS: BASOPHILS # (AUTO) 0.1 10^3/uL (0.0-0.1); BASOPHILS % (AUTO) 1 % (0-10); EOSINOPHILS # (AUTO) 0.3 10^3/uL (0.0-0.3); EOSINOPHILS % (AUTO) 6 % (0-10); HEMATOCRIT 42 % (35-52); HEMOGLOBIN 13.6 g/dL (11.5-16.0); LYMPHOCYTES % (AUTO) 37 % (12-44); MEAN CORPUSCULAR HEMOGLOBIN 30 pg (25-34); MEAN CORPUSCULAR HGB CONC 32 g/dL (32-36); MEAN CORPUSCULAR VOLUME 93 fL (80-99); MEAN PLATELET VOLUME 10.8 fL (9.0-12.2); MONOCYTES # (AUTO) 0.5 10^3/uL (0.0-1.0); MONOCYTES % (AUTO) 9 % (0-12); NEUTROPHILS # (AUTO) 2.6 10^3/uL (1.8-7.8); NEUTROPHILS % (AUTO) 47 % (42-75); PLATELET COUNT 264 10^3/uL (130-400); WHITE BLOOD COUNT 5.5 10^3/uL (4.3-11.0)
[2021-09-05 20:21] LABS: POTASSIUM 3.4 MMOL/L (3.6-5.0)
[2021-09-05 20:22] LABS: CALCIUM 9.1 MG/DL (8.5-10.1)
[2021-09-05 20:24] LABS: TOTAL PROTEIN 6.7 GM/DL (6.4-8.2)
[2021-09-05 20:25] LABS: BILIRUBIN,TOTAL 0.3 MG/DL (0.1-1.0)
[2021-09-05 20:27] LABS: CREATININE SERUM 0.84 MG/DL (0.60-1.30)
[2021-09-05] MEDS ORDERED: PROMETHAZINE INJ 25 MG/ML (PHENERGAN) AMP IVP ONE (20:30)
[2021-09-05] MEDS ORDERED: morphine INJ 10 MG/ML 1ML (SYR OR VIAL) IVP ONE (20:30)
[2021-09-05] MEDS ORDERED: IOHEXOL 350 MG/ML 100 ML (OMNIPAQUE 350) VIAL IV ONE (20:45)
[2021-09-05] MEDS ORDERED: HOLD METFORMIN - RECEIVED CONTRAST 20 ML VIAL IV SCH (20:45)
[2021-09-05] MEDS ORDERED: NS 100 ML (IVPB) BAG IV ONE (20:45)
--- NOTE | 2021-09-05 21:08 | Diagnostic Imaging Report ---
EXAMINATION: CT abdomen and pelvis with intravenous contrast. TECHNIQUE: Multiple contiguous axial images were obtained through the abdomen and pelvis after the uneventful administration of intravenous contrast. All CT scans use one or more of the following dose optimizing techniques: automated exposure control, MA and/or KvP adjustment based on patient size and exam type or iterative reconstruction. HISTORY: llq abd pain COMPARISON: 05/21/2021 FINDINGS: Lung bases: The lung bases are clear. Solid organs: The liver is normal without focal lesion. The gallbladder is surgically absent. Mild dilatation of the common bile duct which may be secondary to reservoir effect from prior cholecystectomy. Pancreas is normal. Spleen is normal. Adrenal glands are normal. The kidneys are normal without hydronephrosis. Bowel: The stomach and small bowel are normal without obstruction. The colon and appendix are normal. Peritoneum: There is no intraperitoneal free fluid or free air. No suspicious lymphadenopathy. Vasculature: Normal without aneurysm. Musculoskeletal: Degenerative changes of the spine without suspicious osseous lesion or compression fracture. Pelvis: The uterus is surgically absent. No adnexal mass. The urinary bladder is normal. IMPRESSION: 1. No acute abnormality in the abdomen or pelvis. Dictated by: Dictated on workstation # [id number]
[2021-09-05] MEDS ORDERED: HYDROmorphone 2 MG/ML VIAL (DILAUDID) IV ONE (21:30)
[2021-09-05] MEDS ORDERED: KETOROLAC 30 MG/ML VIAL IVP ONE (21:30)
[2021-09-05] MEDS ORDERED: HYDR-3817 PO (21:50)
[2021-09-05] MEDS ORDERED: ONDA4TAB11 PO (21:50)
[2021-09-05 21:52] VITALS: BP 110/59
== END 2021-09-05 21:56 | disposition home or self-care (01) ==
LOC: EDUNIT# 18:54 → ER 18:56
DX: R10.12 Left upper quadrant pain (principal); G89.29 Other chronic pain; M54.9 Dorsalgia, unspecified
CPT/HCPCS: 36415; 74177; 80053; 81000; 83690; 85025

== ENCOUNTER 2021-12-09 17:14 | Emergency (ER) | payer OTHER ==
[~2021-12-09] VITALS: Ht 170 cm; Wt 68.0 kg
[~2021-12-09 17:14] MED LIST changes: +HYDR-3817 PO; +ONDA4TAB11 PO; +TIZA-169
--- NOTE | 2021-12-09 17:43 | ED Chest Pain ---
General Stated Complaint: CP/BACK PAIN/ABD PAIN/NUMBNESS Source: patient Exam Limitations: no limitations History of Present Illness Date Seen by Provider: December 09, 2021 Time Seen by Provider: 17:39 Initial Comments Patient is a 51-year-old female who presents to the ED for upper abdominal pain chest pain back pain. Symptoms started about 1 hour and a half ago. She states she was sitting and waiting for her when she started having a sharp stabbing pain across bilateral lower ribs. Radiated to her back. She believes it probably started from her back and radiated across her chest bilateral. This lasted for a few minutes and then had a second episode and decided to come to the ED. She had shortness of breath with the second episode. Started having numbness and tingling throughout her extremities and cramping sensation of her hands. She states she was having difficulty talking during this and had extreme cramping. She started taking deep breaths which seemed to improve. She stated she started feeling fatigue and sweaty during this episode. No known history of coronary artery disease, COPD, asthma, hypertension, diabetes, smoking. No recent travels or surgeries. Denies any leg swelling. She states she was moving all extremities. No facial droop. No history of stroke. She states she has a history of rib pain and back pain and sees Dr. Reich with adjustments. Had adjustments done on Saturday with relief. Denies fever, chills, visual changes, unilateral muscle weakness, vomiting, diarrhea, nausea. History of cholecystectomy and states it felt like a gallbladder attack. Allergies and Home Medications Allergies Coded Allergies: Penicillins (Verified Allergy, Mild, REDNESS/SWELLING AT INJECTION SITE, 04/09/19) Patient Home Medication List Home Medication List Reviewed: Yes Cyclobenzaprine HCl (Cyclobenzaprine HCl) 10 Mg Tablet, 10 MG PO TID Prescribed by: GINGER PEARSON on 12/09/212120 Estrogens, Conjugated (Premarin) 0.625 Mg Tablet, 0.625 MG PO DAILY, (Reported) Entered as Reported by: MUSHTAQ AVINA on 08/07/21 1308 Hydrocodone/Acetaminophen (Hydrocodone-Acetamin 7.5-325) 1 Each Tablet, 1 EACH PO Q4H Prescribed by: GINGER PEARSON on 09/05/21 215 Ondansetron (Ondansetron Odt) 4 Mg Tab.rapdis, 4 MG PO Q4H Prescribed by: GINGER PEARSON on 09/05/212149 Tizanidine HCl (Tizanidine HCl) 2 Mg Capsule, 2 MG PO DAILY, (Reported) Entered as Reported by: MUSHTAQ AVINA on 08/07/21 1308 Tizanidine HCl (Tizanidine HCl) 2 Mg Tablet, (Reported) Entered as Reported by: KAILASH BARAJAS on 09/05/21 1918 Review of Systems Review of Systems Constitutional: No chills, No diaphoresis EENTM: No Double Vision, No Eye Pain, No Ear Pain, No Mouth Pain, No Throat Pain, No Throat Swelling Respiratory: Denies Cough; Shortness of Air Cardiovascular: Chest Pain Gastrointestinal: Denies Constipated, Denies Diarrhea, Denies Nausea, Denies Vomiting Genitourinary: Denies Burning, Denies Discharge Musculoskeletal: back pain; No joint pain Skin: No change in color, No change in hair/nails Psychiatric/Neurological: Anxiety All Other Systems Reviewed Negative Unless Noted: Yes Past Mukgixf-Upmaof-Eramiz Hx Immunizations Up To Date First/Initial COVID19 Vaccinat: OCTOBER 2020 Second COVID19 Vaccination Salvatore: NOVEMBER 2020 Third COVID19 Vaccination Date: DECEMBER 2020 Seasonal Allergies Seasonal Allergies: No Past Medical History Surgery/Hospitalization HX: hysterectomy, cholecystectomy, c-sect. 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 Disease: No HIV/AIDS: No Genitourinary: No Gastrointestinal: Yes Gastroesophageal Reflux, Chronic Constipation Musculoskeletal: Yes (NO MEDS FOR RA FOR 3 YEARS, JOINT PAIN) Rheumatoid Arthritis, Chronic Back Pain Endocrine: No HEENT: Yes (READING GLASSES) Loss of Vision: Denies Hearing Impairment: Denies Cancer: No Psychosocial: No Integumentary: No Blood Disorders: No Adverse Reaction/Blood Tranf: No (N/A) Family Medical History No Pertinent Family Hx Physical Exam Vital Signs Vital Signs - First Documented 12/09/21 17:26 Temp 35.8 Pulse 63 Resp 17 B/P (MAP) 125/104 (111) Pulse Ox 98 O2 Delivery Room Air Capillary Refill : Height, Weight, BMI Height: 5'7" Weight: 150lbs. oz. [id number]; 26.00 BMI Method:Stated General Appearance: No Apparent Distress, WD/WN HEENT: PERRL/EOMI, TMs Normal, Normal ENT Inspection, Pharynx Normal Neck: Full Range of Motion, Normal Inspection, Non Tender, Supple Respiratory: Chest Non Tender, Lungs Clear, Normal Breath Sounds, No Accessory Muscle Use, No Respiratory Distress Cardiovascular: Regular Rate, Rhythm, No Edema, No Gallop, No JVD, No Murmur Gastrointestinal: Normal Bowel Sounds, No Organomegaly, No Pulsatile Mass, Non Tender, Soft Rectal: Normal Exam Extremity: Normal Capillary Refill, Normal Inspection, Normal Range of Motion, Non Tender Neurologic/Psychiatric: Alert, Oriented x3, No Motor/Sensory Deficits, Normal 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, 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 Norm as Tested Skin: Normal Color, Warm/Dry Progress/Results/Core Measures Results/Orders Lab Results Laboratory Tests Test 12/09/21 17:35 12/09/21 20:38 Range/Units White Blood Count 8.0 4.3-11.0 10^3/uL Red Blood Count 4.47 3.80-5.11 10^6/uL Hemoglobin 13.4 11.5-16.0 g/dL Hematocrit 41 35-52 % Mean Corpuscular Volume 91 80-99 fL Mean Corpuscular Hemoglobin 30 25-34 pg Mean Corpuscular Hemoglobin Concent 33 32-36 g/dL Red Cell Distribution Width 13.0 10.0-14.5 % Platelet Count 243 130-400 10^3/uL Mean Platelet Volume 10.9 9.0-12.2 fL Immature Granulocyte % (Auto) 0 % Neutrophils (%) (Auto) 60 42-75 % Lymphocytes (%) (Auto) 29 12-44 % Monocytes (%) (Auto) 5 0-12 % Eosinophils (%) (Auto) 5 0-10 % Basophils (%) (Auto) 1 0-10 % Neutrophils # (Auto) 4.8 1.8-7.8 10^3/uL Lymphocytes # (Auto) 2.3 1.0-4.0 10^3/uL Monocytes # (Auto) 0.4 0.0-1.0 10^3/uL Eosinophils # (Auto) 0.4 H 0.0-0.3 10^3/uL Basophils # (Auto) 0.1 0.0-0.1 10^3/uL Immature Granulocyte # (Auto) 0.0 0.0-0.1 10^3/uL Prothrombin Time 14.1 12.2-14.7 SEC INR Comment 1.0 0.8-1.4 Activated Partial Thromboplast Time 34 24-35 SEC Sodium Level 139 135-145 MMOL/L Potassium Level 3.9 3.6-5.0 MMOL/L Chloride Level 107 98-107 MMOL/L Carbon Dioxide Level 21 21-32 MMOL/L Anion Gap 11 5-14 MMOL/L Blood Urea Nitrogen 14 7-18 MG/DL Creatinine 0.79 0.60-1.30 MG/DL Estimat Glomerular Filtration Rate 91 BUN/Creatinine Ratio 18 Glucose Level 85 70-105 MG/DL Calcium Level 9.3 8.5-10.1 MG/DL Corrected Calcium 9.2 8.5-10.1 MG/DL Magnesium Level 1.7 1.6-2.4 MG/DL Total Bilirubin 0.6 0.1-1.0 MG/DL Aspartate Amino Transf (AST/SGOT) 36 H 5-34 U/L Alanine Aminotransferase (ALT/SGPT) 15 0-55 U/L Alkaline Phosphatase 60 40-136 U/L Myoglobin 49.4 10.0-92.0 NG/ML Troponin I < 0.028 < 0.028 <0.028 NG/ML B-Type Natriuretic Peptide < 10.0 <100.0 PG/ML Total Protein 7.0 6.4-8.2 GM/DL Albumin 4.1 3.2-4.5 GM/DL Lipase 14 8-78 U/L My Orders Orders - JAYDEN JAEGER PA Ekg Tracing (12/09/21 17:19) Cbc With Automated Diff (12/09/21 17:38) Magnesium (12/09/21 17:38) Chest 1 View, Ap/Pa Only (12/09/21 17:38) Comprehensive Metabolic Panel (12/09/21 17:38) Myoglobin Serum (12/09/21 17:38) Protime With Inr (12/09/21 17:38) Partial Thromboplastin Time (12/09/21 17:38) Monitor-Rhythm Ecg Trace Only (12/09/21 17:38) Ed Iv/Invasive Line Start (12/09/21 17:38) Bnp [place] (12/09/21 17:38) Troponin I Opal (12/09/21 17:38) Aspirin Chewable Tablet (Baby Aspirin Ch (12/09/21 17:45) Ct Head Wo (12/09/21 17:38) Lipase (12/09/21 17:52) Morphine Injection (Morphine Injection (12/09/21 18:30) Lorazepam Injection (Ativan Injection) (12/09/21 18:30) Morphine Injection (Morphine Injection (12/09/21 18:20) Ct Abd/Pelvis Wo(Kidney Stone) (12/09/21 18:31) Troponin I Opal (12/09/21 20:35) Ondansetron Oral Dissolve Tab (Zofran (12/09/21 21:30) Rx-Tramadol Hcl (Rx-Ultram) (12/09/21 21:30) Medications Given in ED Vital Signs/I&O 12/09/21 12/09/21 17:26 21:40 Temp 35.8 Pulse 63 Resp 17 18 B/P (MAP) 125/104 (111) 106/69 Pulse Ox 98 98 O2 Delivery Room Air Room Air Comment Sinus bradycardia, 56 bpm, QRS duration 77 MS, QTc 384 MS Departure Communication (PCP) Patient with acute episode of pain below bilateral breast. Patient started to have cramping in her hands with diffuse numbness and tingling. She had no facial droop, slurred speech or unilateral muscle weakness or sensory changes. She was having difficulty speaking right before arrival. This has improved. This is likely secondary to hyperventilating with the cramping of the hands and diffuse numbness.. She was given Ativan with improvement as she appeared anxious. According to patient and at bedside she has had similar type pain in the past. She sees Dr. Reich with back adjustments with improvement of this pain. Had a adjustment performed this past Saturday with improvement but she states she had a different adjustment than normal. History of cholecystectomy. She states this feels like gallbladder pain. Patient troponin and cardiac enzym es initially were unremarkable. EKG without evidence of ST elevation, depression or arrhythmia. Chest x-ray was negative for pneumonia, pneumothorax. Normal liver enzymes, white blood count, kidney function pancreatic enzymes. Lab work was reassuring. Family was concerned for possible kidney stone. CT abd and pelvis was negative for acute abnormality. Family appeared to be frustrated secondary to this ongoing pain that patient has been having. Appears to be intermittently. They were concerned tonight because of the numbness and tingling and difficulty talking. CT scan of the head was unremarkable. Patient was observed here in the ED. Recommend a second troponin 3 hours secondary to location of pain. This was normal. Patient symptoms continue to improve. She did feel nauseous and was given Zofran. Tolerating p.o. fluids at bedside after Zofran reassured family that this is unlikely cardiac related. She has a low heart score with no known history of coronary artery disease, hypertension, diabetes, smoking. No evidence of strokelike symptoms. Family and patient feel comfortable to be discharged at this time. I strongly recommend follow-up with her primary care physician for further evaluation. If any worsening symptoms to return back to ED for further evaluation. Will discharge with a few days worth of pain medication. Impression Primary Impression: Chest pain Additional Impression: Abdominal pain Disposition: HOME, SELF-CARE Condition: Stable Departure-Patient Inst. Decision time for Depature: 21:18 Referrals: ADELE WOOD MD (PCP/Family) Primary Care Physician Patient Instructions: Chest Pain, Adult ED Add. Discharge Instructions: Recommend follow-up with your primary care physician for further evaluation. May take tramadol as needed for pain. If severe muscle spasming recommend Flexeril Scripts Cyclobenzaprine HCl (Cyclobenzaprine HCl) 10 Mg Tablet 10 MG PO TID, #16 TAB Prov: JAYDEN JAEGER 12/09/21 JAYDEN JAEGER December 09, 2021 17:42
[2021-12-09] MEDS ORDERED: ASPIRIN 81 MG CHEW (CHILDREN'S ASA) PO ONE (17:45)
[2021-12-09 17:47] LABS: BASOPHILS # (AUTO) 0.1 10^3/uL (0.0-0.1); BASOPHILS % (AUTO) 1 % (0-10); EOSINOPHILS # (AUTO) 0.4 10^3/uL (0.0-0.3); EOSINOPHILS % (AUTO) 5 % (0-10); HEMATOCRIT 41 % (35-52); HEMOGLOBIN 13.4 g/dL (11.5-16.0); LYMPHOCYTES # (AUTO) 2.3 10^3/uL (1.0-4.0); LYMPHOCYTES % (AUTO) 29 % (12-44); MEAN CORPUSCULAR HEMOGLOBIN 30 pg (25-34); MEAN CORPUSCULAR HGB CONC 33 g/dL (32-36); MEAN CORPUSCULAR VOLUME 91 fL (80-99); MEAN PLATELET VOLUME 10.9 fL (9.0-12.2); MONOCYTES # (AUTO) 0.4 10^3/uL (0.0-1.0); MONOCYTES % (AUTO) 5 % (0-12); NEUTROPHILS # (AUTO) 4.8 10^3/uL (1.8-7.8); NEUTROPHILS % (AUTO) 60 % (42-75); PLATELET COUNT 243 10^3/uL (130-400)
[2021-12-09 17:56] LABS: ALBUMIN 4.1 GM/DL (3.2-4.5); PROTHROMBIN TIME PATIENT 14.1 SEC (12.2-14.7)
[2021-12-09 17:58] LABS: CALCIUM 9.3 MG/DL (8.5-10.1)
[2021-12-09 18:00] LABS: BILIRUBIN,TOTAL 0.6 MG/DL (0.1-1.0)
[2021-12-09 18:02] LABS: CREATININE SERUM 0.79 MG/DL (0.60-1.30)
[2021-12-09 18:05] LABS: MAGNESIUM 1.7 MG/DL (1.6-2.4)
[2021-12-09 18:10] LABS: POTASSIUM 3.9 MMOL/L (3.6-5.0)
--- NOTE | 2021-12-09 18:15 | Diagnostic Imaging Report ---
EXAMINATION: Chest 1 view. HISTORY: Chest pain. COMPARISON: 05/30/2021. FINDINGS: Heart size and pulmonary vasculature are normal. The lungs are clear without consolidation, pleural effusion or pneumothorax. The osseous structures are intact. IMPRESSION: No acute radiographic abnormality in the chest. Dictated by: Dictated on workstation # [id number]
--- NOTE | 2021-12-09 18:16 | Diagnostic Imaging Report ---
EXAMINATION: CT head without contrast. TECHNIQUE: Multiple contiguous axial images were obtained through the brain without the use of intravenous contrast. All CT scans use one or more of the following dose optimizing techniques: automated exposure control, MA and/or KvP adjustment based on patient size and exam type or iterative reconstruction. HISTORY: Numbness, ext pain. COMPARISON: 12/16/2020. FINDINGS: The ventricles and sulci are normal. No abnormal attenuation of brain parenchyma is present. No acute intracranial hemorrhage or abnormal extra-axial fluid collections are present. No hyperdense vessel. The calvarium is intact. The mastoid air cells are clear. The visualized paranasal sinuses are clear. The orbits are normal. IMPRESSION: No acute intracranial abnormality. Dictated by: Dictated on workstation # [id number]
[2021-12-09] MEDS ORDERED: morphine INJ 10 MG/ML 1ML (SYR OR VIAL) ONE (18:20)
[2021-12-09] MEDS ORDERED: morphine INJ 10 MG/ML 1ML (SYR OR VIAL) IVP ONE (18:30)
[2021-12-09] MEDS ORDERED: LORazepam INJ 2 MG/ML (ATIVAN) VIAL IVP ONE (18:30)
--- NOTE | 2021-12-09 18:52 | Diagnostic Imaging Report ---
EXAMINATION: CT abdomen and pelvis without contrast. TECHNIQUE: Multiple contiguous axial images were obtained through the abdomen and pelvis without the use of intravenous contrast. All CT scans use one or more of the following dose optimizing techniques: automated exposure control, MA and/or KvP adjustment based on patient size and exam type or iterative reconstruction. HISTORY: Bilateral flank pain, hematuria. COMPARISON: 09/05/2021. FINDINGS: Lung bases: The lung bases are clear. Solid organs: The liver is normal. The gallbladder is surgically absent. There is no biliary ductal dilation. Pancreas is normal. Spleen is normal. Adrenal glands are normal. The kidneys are normal without visualized calculus or hydronephrosis. Bowel: The stomach and small bowel are normal without obstruction. The colon and appendix are normal. Peritoneum: There is no intraperitoneal free fluid or free air. No suspicious lymphadenopathy. Vasculature: Normal without aneurysm. Musculoskeletal: No suspicious osseous lesion or compression fracture. Pelvis: The uterus is surgically absent. No adnexal mass. The urinary bladder is normal. IMPRESSION: 1. No visualized renal calculus or hydronephrosis. 2. No other acute abnormality in the abdomen or pelvis. Dictated by: Dictated on workstation # [id number]
[2021-12-09] MEDS ORDERED: CYCL10TA25 PO (21:21)
[2021-12-09] MEDS ORDERED: ONDANSETRON 4 MG (ZOFRAN) ORAL DISSOLVE TAB PO ONE (21:30)
[2021-12-09 21:40] VITALS: BP 106/69
== END 2021-12-09 21:40 | disposition home or self-care (01) ==
LOC: EDUNIT# 17:14 → ER 17:15
DX: R07.81 Pleurodynia (principal); R10.10 Upper abdominal pain, unspecified; R20.0 Anesthesia of skin; Z90.49 Acquired absence of other specified parts of digestive tract
CPT/HCPCS: 36415; 70450; 71045; 74176; 80053; 83690; 83735; 83874; 83880; 84484; 85025; 85610; 85730; 93005; 93041

== ENCOUNTER 2022-01-13 20:01 | Emergency (ER) | payer OTHER ==
[~2022-01-13] VITALS: Ht 170 cm; Wt 66.0 kg
[2022-01-13 23:29] VITALS: BP 103/70
[2022-01-14] MEDS ORDERED: FLUORESCEIN (FLUOR-I-STRIPS) 1 MG STRP OU ONE
[2022-01-14] MEDS ORDERED: BSS 15 ML IR ONE
[2022-01-14] MEDS ORDERED: TETRACAINE 0.5% OPHTH SOLN 4 ML BTL (SINGLE DOSE ONLY) OU ONE
--- NOTE | 2022-01-14 00:10 | ED EENT ---
History of Present Illness General Stated Complaint: SOMETHING STUCK IN R EYE,BURNING,WATERING,PAIN Allergies and Home Medications Allergies Coded Allergies: Penicillins (Verified Allergy, Mild, REDNESS/SWELLING AT INJECTION SITE, 04/09/19) Patient Home Medication List Cyclobenzaprine HCl (Cyclobenzaprine HCl) 10 Mg Tablet, 10 MG PO TID Prescribed by: GINGER PEARSON on 12/09/212120 Estrogens, Conjugated (Premarin) 0.625 Mg Tablet, 0.625 MG PO DAILY, (Reported) Entered as Reported by: MUSHTAQ AVINA on 08/07/21 1308 Hydrocodone/Acetaminophen (Hydrocodone-Acetamin 7.5-325) 1 Each Tablet, 1 EACH PO Q4H Prescribed by: GINGER PEARSON on 09/05/212149 Ondansetron (Ondansetron Odt) 4 Mg Tab.rapdis, 4 MG PO Q4H Prescribed by: GINGER PEARSON on 09/05/212149 Tizanidine HCl (Tizanidine HCl) 2 Mg Capsule, 2 MG PO DAILY, (Reported) Entered as Reported by: MUSHTAQ AVINA on 08/07/21 1308 Tizanidine HCl (Tizanidine HCl) 2 Mg Tablet, (Reported) Entered as Reported by: KAILASH BARAJAS on 09/05/211917 Past Zdjdonh-Zpypgk-Mursxn Hx Immunizations Up To Date First/Initial COVID19 Vaccinat: OCTOBER 2020 Second COVID19 Vaccination Salvatoer: NOVEMBER 2020 Third COVID19 Vaccination Date: DECEMBER 2020 Seasonal Allergies Seasonal Allergies: No Past Medical History Surgery/Hospitalization HX: hysterectomy, cholecystectomy, c-sect. 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 oz. [id number]; 23.00 BMI Method:Stated Progress/Results/Core Measures Results/Orders My Orders Orders - GUADALUPE SCRUGGS DO Tetracaine 0.5% Ophth Ginny Sdv (Tetracai (01/14/22 00:00) Fluorescein Strips (Ihnct-U-Cvobah) (01/14/22 00:00) Balanced Salt Irrigation Soln (Bss Irrig (01/14/22 00:00) Trimethoprim/Polymyx Ophth Ginny (Polytrim (01/14/22 00:15) Tdap (Boostrix) Im (01/14/22 00:15) Medications Given in ED Current Medications Medications Dose Ordered Sig/Dolly Route Start Time Stop Time Status Last Admin Dose Admin Balanced Salt Solution 15 ml ONCE ONCE IR 01/14/22 00:00 01/14/22 00:01 DC 01/14/22 00:00 15 ML Fluorescein Sodium 1 mg ONCE ONCE OU 01/14/22 00:00 01/14/22 00:01 DC 01/14/22 00:00 1 MG Tetracaine HCl 4 ml ONCE ONCE OU 01/14/22 00:00 01/14/22 00:01 DC 01/14/22 00:00 4 ML Departure Impression Primary Impression: CONJUNCTIVAL ABRASION RIGHT EYE Additional Impression: Gipcjhigqu-czdhjziqz-yfysfdr (DPT) vaccination administered at current visit Disposition: 01 HOME, SELF-CARE Condition: Stable Departure-Patient Inst. Decision time for Depature: 00:08 Referrals: ADELE WOOD MD (PCP/Family) Primary Care Physician CINDY XIAO OD Patient Instructions: Corneal Abrasion (DC), Diphtheria and Tetanus Toxoids, and Acellular Pertussis Vaccine Add. Discharge Instructions: TYLENOL AND MOTRIN NEEDED FOR PAIN USE EYE DROPS PRESCRIBED FOLLOW UP WITH DR. LATHAM ON SATURDAY FOR FURTHER CARE, RETURN TO ER IF WORSE GUADALUPE SCRUGGS DO Jan 14, 2022 00:10
[2022-01-14] MEDS ORDERED: TETANUS,DIPTH,PERTUSS P/F (BOOSTRIX) 0.5 ML VIAL IM ONE (00:15)
[2022-01-14] MEDS ORDERED: POLY/TRIMETH (POLYTRIM) OPHTH 10 ML BTL OU ONE (00:15)
[2022-01-14] MEDS ORDERED: ERYTHROMYCIN OPHTH OINT 1 GM (SINGLE USE) TUBE ONE (00:28)
[2022-01-14] MEDS ORDERED: GENTAMICIN 0.3% OPHTH OINT 3.5 GM TUBE OP SCH (00:30)
[2022-01-14] MEDS ORDERED: ERYTHROMYCIN OPHTH OINT 1 GM (SINGLE USE) TUBE OP SCH ×2 (06:00)
== END 2022-01-14 00:40 | disposition home or self-care (01) ==
LOC: EDUNIT# 20:01 → ER 20:04
DX: S05.01XA Injury of conjunctiva and corneal abrasion without foreign body, right eye, initial encounter (principal); Z23 Encounter for immunization; W45.8XXA Other foreign body or object entering through skin, initial encounter
CPT/HCPCS: 90715; 99281

== ENCOUNTER 2022-01-20 08:35 | Emergency (ER) | payer OTHER ==
[~2022-01-20] VITALS: Ht 175.2 cm; Wt 65.7 kg
[2022-01-20 09:13] LABS: BASOPHILS # (AUTO) 0.1 10^3/uL (0.0-0.1); BASOPHILS % (AUTO) 1 % (0-10); EOSINOPHILS % (AUTO) 0 % (0-10); HEMATOCRIT 39 % (35-52); HEMOGLOBIN 12.8 g/dL (11.5-16.0); LYMPHOCYTES # (AUTO) 0.8 10^3/uL (1.0-4.0); LYMPHOCYTES % (AUTO) 8 % (12-44); MEAN CORPUSCULAR HEMOGLOBIN 30 pg (25-34); MEAN CORPUSCULAR HGB CONC 33 g/dL (32-36); MEAN CORPUSCULAR VOLUME 91 fL (80-99); MEAN PLATELET VOLUME 11.1 fL (9.0-12.2); MONOCYTES # (AUTO) 0.2 10^3/uL (0.0-1.0); MONOCYTES % (AUTO) 2 % (0-12); NEUTROPHILS # (AUTO) 8.7 10^3/uL (1.8-7.8); NEUTROPHILS % (AUTO) 89 % (42-75); PLATELET COUNT 260 10^3/uL (130-400); WHITE BLOOD COUNT 9.8 10^3/uL (4.3-11.0)
[2022-01-20] MEDS ORDERED: NS IV 1000 ML 1,000 ML IV SCH (09:15)
[2022-01-20] MEDS ORDERED: BENZTROPINE 2 MG/2 ML INJ (COGENTIN) AMP IM ONE (09:15)
[2022-01-20] MEDS ORDERED: HALOPERIDOL 5 MG/ML (HALDOL) VIAL IM ONE (09:15)
[2022-01-20 09:17] LABS: ALBUMIN 4.3 GM/DL (3.2-4.5)
[2022-01-20 09:18] LABS: POTASSIUM 3.6 MMOL/L (3.6-5.0)
[2022-01-20 09:19] LABS: CALCIUM 9.4 MG/DL (8.5-10.1)
[2022-01-20 09:20] LABS: TOTAL PROTEIN 7.2 GM/DL (6.4-8.2)
[2022-01-20 09:22] LABS: BILIRUBIN,TOTAL 0.8 MG/DL (0.1-1.0)
[2022-01-20 09:24] LABS: CREATININE SERUM 0.79 MG/DL (0.60-1.30)
[2022-01-20 09:29] LABS: BAND NEUTROPHILS 0 %; BASOPHILS % (MANUAL) 1 %; EOSINOPHILS % (MANUAL) 0 %; LYMPHOCYTES % (MANUAL) 12 %; MONOCYTES % (MANUAL) 3 %; NEUTROPHILS % (MANUAL) 84 %; RBC MORPH NORMAL
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
[2022-01-20] MEDS ORDERED: fentaNYL INJ 100 MCG/2 ML AMP IVP ONE (09:45)
[2022-01-20] MEDS ORDERED: DICY20TA PO (11:34)
[2022-01-20] MEDS ORDERED: PROM25TA14 PO (11:34)
[2022-01-20 11:44] VITALS: BP 96/64
== END 2022-01-20 11:44 | disposition home or self-care (01) ==
LOC: EDUNIT# 08:35 → ER 08:37
DX: R10.84 Generalized abdominal pain (principal); Z87.19 Personal history of other diseases of the digestive system; Z90.49 Acquired absence of other specified parts of digestive tract; Z90.710 Acquired absence of both cervix and uterus
CPT/HCPCS: 36415; 80053; 83690; 85007; 85027

== ENCOUNTER 2022-03-07 17:32 | Emergency (ER) | payer OTHER ==
[~2022-03-07] VITALS: Ht 170 cm; Wt 66.0 kg
[~2022-03-07 17:32] MED LIST changes: +DICY20TA PO; +PROM25TA14 PO
[2022-03-07] MEDS ORDERED: ONDANSETRON 4 MG/2 ML (SDV) Z0FRAN IVP ONE (18:30)
[2022-03-07] MEDS ORDERED: LACTATED RINGERS 1,000 ML IV ONE ×3 (18:30→20:15)
[2022-03-07 18:40] LABS: BASOPHILS % (AUTO) 0 % (0-10); EOSINOPHILS % (AUTO) 0 % (0-10); HEMATOCRIT 47 % (35-52); LYMPHOCYTES # (AUTO) 1.2 10^3/uL (1.0-4.0); LYMPHOCYTES % (AUTO) 10 % (12-44); MEAN CORPUSCULAR HEMOGLOBIN 30 pg (25-34); MEAN CORPUSCULAR HGB CONC 34 g/dL (32-36); MEAN CORPUSCULAR VOLUME 88 fL (80-99); MEAN PLATELET VOLUME 11.3 fL (9.0-12.2); MONOCYTES # (AUTO) 0.6 10^3/uL (0.0-1.0); MONOCYTES % (AUTO) 5 % (0-12); NEUTROPHILS # (AUTO) 10.3 10^3/uL (1.8-7.8); NEUTROPHILS % (AUTO) 84 % (42-75); PLATELET COUNT 313 10^3/uL (130-400); WHITE BLOOD COUNT 12.3 10^3/uL (4.3-11.0)
[2022-03-07 18:46] LABS: INR 1.1 (0.8-1.4); PROTHROMBIN TIME PATIENT 14.6 SEC (12.2-14.7)
[2022-03-07 18:49] LABS: ALBUMIN 4.8 GM/DL (3.2-4.5)
[2022-03-07 18:50] LABS: CHLORIDE 101 MMOL/L (98-107); POTASSIUM 3.8 MMOL/L (3.6-5.0); SODIUM 139 MMOL/L (135-145)
[2022-03-07 18:51] LABS: CALCIUM 10.4 MG/DL (8.5-10.1)
[2022-03-07 18:52] LABS: GLUCOSE 106 MG/DL (70-105); TOTAL PROTEIN 8.6 GM/DL (6.4-8.2)
[2022-03-07 18:53] LABS: CARBON DIOXIDE 25 MMOL/L (21-32)
[2022-03-07 18:54] LABS: BILIRUBIN,TOTAL 0.7 MG/DL (0.1-1.0)
[2022-03-07 18:55] LABS: ALKALINE PHOSPHATASE 65 U/L (40-136)
[2022-03-07 18:56] LABS: CREATININE SERUM 0.91 MG/DL (0.60-1.30); GFR ESTIMATED 76
[2022-03-07 18:57] LABS: BUN/CREATININE RATIO 11
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
[2022-03-07 18:59] LABS: ALANINE AMINOTRANSFERASE 13 U/L (0-55); LIPASE 20 U/L (8-78)
[2022-03-07] MEDS ORDERED: fentaNYL INJ 100 MCG/2 ML AMP IVP ONE (19:00)
[2022-03-07] MEDS ORDERED: PANTOPRAZOLE 40 MG (PROTONIX) VIAL IV ONE (19:00)
[2022-03-07 19:59] LABS: BILIRUBIN,URINE NEGATIVE (NEGATIVE); CLARITY,URINE CLEAR; COLOR,URINE YELLOW; GLUCOSE, URINE (UA) NEGATIVE (NEGATIVE); KETONES,URINE 3+ (NEGATIVE); LEUKOCYTE ESTERASE ,URINE NEGATIVE (NEGATIVE); NITRITE,URINE NEGATIVE (NEGATIVE); PH,URINE 7.5 (5-9); PROTEIN,URINE 2+ (NEGATIVE)
[2022-03-07 20:11] LABS: BACTERIA,URINE FEW /HPF; RBC,URINE 0-2 /HPF; WBC,URINE 0-2 /HPF
[2022-03-07 20:12] LABS: AMPHETAMINE SCREEN, URINE NEGATIVE (NEGATIVE); BARBITURATE SCREEN URINE NEGATIVE (NEGATIVE); BENZODIAZEPINES SCREEN URINE NEGATIVE (NEGATIVE); CANNABINOID SCREEN, URINE POSITIVE (NEGATIVE); COCAINE SCREEN URINE NEGATIVE (NEGATIVE); METHADONE STAT NEGATIVE (NEGATIVE); OPIATE SCREEN URINE POSITIVE (NEGATIVE); OXYCODONE STAT NEGATIVE (NEGATIVE); PROPOXYPHENE STAT NEGATIVE (NEGATIVE); TRICYCLIC ANTIDEPRESSANTS SCRE NEGATIVE (NEGATIVE)
[2022-03-07] MEDS ORDERED: HYOS-19 SL (20:13)
[2022-03-07] MEDS ORDERED: FAMOTIDINE 20 MG (PEPCID) TABLET PO STA (20:31)
[2022-03-07] MEDS ORDERED: ANTACID SUSP 30 ML UDC (MYLANTA) PO ONE (20:45)
[2022-03-07] MEDS ORDERED: DROPERIDOL 5 MG/2 ML (INAPSINE) ED ONLY! IV ONE (21:00)
[2022-03-07] MEDS ORDERED: RX-HYOSCYAMINE 0.125 MG SL (LEVSIN) PPK#6 SL STA (22:02)
[2022-03-07 22:12] VITALS: BP 134/94
== END 2022-03-07 22:14 | disposition home or self-care (01) ==
LOC: ER 17:32
DX: G43.D0 Abdominal migraine, not intractable (principal); K58.9 Irritable bowel syndrome, unspecified; E86.0 Dehydration; Z90.49 Acquired absence of other specified parts of digestive tract; Z20.822 Contact with and (suspected) exposure to COVID-19
CPT/HCPCS: 36415; 80053; 80306; 81000; 83690; 83735; 85025; 85610; 86141; 87636; 93005

== ENCOUNTER 2022-03-11 17:27 | Observation (INO) | payer OTHER ==
[~2022-03-11] VITALS: Ht 170 cm; Wt 62.0 kg
[~2022-03-11 17:27] MED LIST changes: +HYOS-19 SL
[2022-03-11 18:43] LABS: BASOPHILS # (AUTO) 0.1 10^3/uL (0.0-0.1); BASOPHILS % (AUTO) 1 % (0-10); EOSINOPHILS % (AUTO) 0 % (0-10); HEMATOCRIT 44 % (35-52); HEMOGLOBIN 15.3 g/dL (11.5-16.0); LYMPHOCYTES # (AUTO) 1.3 10^3/uL (1.0-4.0); LYMPHOCYTES % (AUTO) 13 % (12-44); MEAN CORPUSCULAR HEMOGLOBIN 30 pg (25-34); MEAN CORPUSCULAR HGB CONC 35 g/dL (32-36); MEAN CORPUSCULAR VOLUME 87 fL (80-99); MEAN PLATELET VOLUME 10.7 fL (9.0-12.2); MONOCYTES # (AUTO) 0.5 10^3/uL (0.0-1.0); MONOCYTES % (AUTO) 5 % (0-12); NEUTROPHILS # (AUTO) 8.3 10^3/uL (1.8-7.8); NEUTROPHILS % (AUTO) 82 % (42-75); PLATELET COUNT 302 10^3/uL (130-400); WHITE BLOOD COUNT 10.2 10^3/uL (4.3-11.0)
[2022-03-11 18:54] LABS: ALBUMIN 4.4 GM/DL (3.2-4.5)
[2022-03-11 18:56] LABS: CALCIUM 9.7 MG/DL (8.5-10.1)
[2022-03-11 18:57] LABS: TOTAL PROTEIN 7.7 GM/DL (6.4-8.2)
[2022-03-11 19:01] LABS: CREATININE SERUM 0.9 MG/DL (0.60-1.30)
[2022-03-11] MEDS ORDERED: ONDANSETRON 4 MG/2 ML (SDV) Z0FRAN IVP ONE (19:30)
[2022-03-11] MEDS ORDERED: LACTATED RINGERS 1,000 ML IV ONE (19:30)
[2022-03-11] MEDS ORDERED: HYOSCYAMINE 0.125 MG (LEVSIN) TAB SL ONE (19:30)
[2022-03-11] MEDS ORDERED: POTASSIUM CL 10MEQ/50ML IVPB 50 ML IV ONE (19:45)
[2022-03-11] MEDS ORDERED: NS IV 1000 ML 1,000 ML IV SCH (19:45)
[2022-03-11 21:11] LABS: CLARITY,URINE CLEAR; COLOR,URINE YELLOW; GLUCOSE, URINE (UA) NEGATIVE (NEGATIVE); KETONES,URINE 3+ (NEGATIVE); LEUKOCYTE ESTERASE ,URINE NEGATIVE (NEGATIVE); NITRITE,URINE NEGATIVE (NEGATIVE); PH,URINE 7.5 (5-9); PROTEIN,URINE 1+ (NEGATIVE)
[2022-03-11 21:21] LABS: BACTERIA,URINE FEW /HPF; BILIRUBIN,URINE 1+ (NEGATIVE); WAXY CASTS,URINE RARE /LPF; WBC,URINE RARE /HPF
[2022-03-11] MEDS ORDERED: HYOSCYAMINE 0.125 MG (LEVSIN) TAB PO ONE (22:00)
[2022-03-11] MEDS ORDERED: PROMETHAZINE INJ 25 MG/ML (PHENERGAN) AMP IVP ONE (22:00)
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
[2022-03-11] MEDS ORDERED: NS IV 1000 ML 1,000 ML ONE (23:31)
[2022-03-11] MEDS ORDERED: PROMETHAZINE INJ 25 MG/ML (PHENERGAN) AMP IVP PRN (23:45)
[2022-03-11] MEDS ORDERED: HYOSCYAMINE 0.125 MG (LEVSIN) TAB SL PRN (23:45)
[2022-03-11] MEDS ORDERED: LORazepam 0.5 MG (ATIVAN) TABLET SL PRN (23:45)
[2022-03-11] MEDS ORDERED: ONDANSETRON 4 MG/2 ML (SDV) Z0FRAN IV PRN (23:45)
[2022-03-11 23:53] VITALS: BP 161/88
[2022-03-12] MEDS: POTASSIUM CL 10MEQ/50ML IVPB 50 ML IV SCH ×4 (00:05→03:32)
[2022-03-12] MEDS: NS IV 1000 ML 1,000 ML IV SCH ×3 (00:06→07:22)
[2022-03-12 03:20] VITALS: BP 129/67
[2022-03-12 05:50] LABS: BASOPHILS # (AUTO) 0.1 10^3/uL (0.0-0.1); BASOPHILS % (AUTO) 1 % (0-10); EOSINOPHILS # (AUTO) 0.1 10^3/uL (0.0-0.3); EOSINOPHILS % (AUTO) 1 % (0-10); HEMATOCRIT 36 % (35-52); HEMOGLOBIN 12.3 g/dL (11.5-16.0); LYMPHOCYTES # (AUTO) 2.7 10^3/uL (1.0-4.0); LYMPHOCYTES % (AUTO) 34 % (12-44); MEAN CORPUSCULAR HEMOGLOBIN 30 pg (25-34); MEAN CORPUSCULAR HGB CONC 34 g/dL (32-36); MEAN CORPUSCULAR VOLUME 88 fL (80-99); MEAN PLATELET VOLUME 11.3 fL (9.0-12.2); MONOCYTES # (AUTO) 0.7 10^3/uL (0.0-1.0); MONOCYTES % (AUTO) 8 % (0-12); NEUTROPHILS # (AUTO) 4.3 10^3/uL (1.8-7.8); NEUTROPHILS % (AUTO) 55 % (42-75); PLATELET COUNT 226 10^3/uL (130-400); WHITE BLOOD COUNT 7.8 10^3/uL (4.3-11.0)
[2022-03-12 06:01] LABS: POTASSIUM 3.7 MMOL/L (3.6-5.0)
[2022-03-12 06:02] LABS: CALCIUM 8.6 MG/DL (8.5-10.1)
[2022-03-12 06:06] LABS: CREATININE SERUM 0.73 MG/DL (0.60-1.30)
[2022-03-12] MEDS ORDERED: ACETAMINOPHEN 325 MG TABLET PO PRN (07:00)
[2022-03-12 07:57] VITALS: BP 116/59
--- NOTE | 2022-03-12 08:40 | History & Physical-Hospitalist ---
History of Present Illness HPI/Chief Complaint Pt is a 51yoCF with a PMH of RA, GERD, chronic nausea and diarrhea who presented to the ER due to intractable nausea and abd pain. She reports this has been going on for over a year. She has had her gallbladder removed in May and had an EGD and colonoscopy without obtaining a diagnosis. She states she had a bad week but on 03/06 thought she was doing a little better so tried to eat which precipitated an exacerbation of he GI issues. She had vomiting and diarrhea and couldn't keep anything down prompting her to seek evaluation. She was given Levsin in the ER and it helped at first but her symptoms recurred so she was admitted overnight for observation. This morning she reports feeling better and would like to try to advance her diet. Source: patient Date Seen 03/12/22 Time Seen by a Provider: 08:11 Attending Physician Adele Cisneros MD PCP Admitting Physician: Madelin Baldwin MD Attending Physician: Paola Charles MD Referring Physician Date of Admission Mar 11, 2022 at 21:52 Home Medications & Allergies Home Medications Reviewed patient Home Medication Reconciliation performed by pharmacy medication reconciliations lighting technician and/or nursing. Patients Allergies have been reviewed. Allergies Allergies Coded Allergies Penicillins (Verified Allergy, Mild, REDNESS/SWELLING AT INJECTION SITE, 04/09/19) Past Eatpkgv-Njgrcb-Ywvgdb Hx Patient Social History Tobacco Use?: No Smoking Status: Former Smoker Use of E-Cig and/or Vaping dev: No Substance use?: No Alcohol Use?: Yes Alcohol type: Wine Alcohol Frequency: Once in a while Pt feels they are or have been: No Immunizations Up To Date First/Initial COVID19 Vaccinat: DENIES Second COVID19 Vaccination Salvatore: NOVEMBER 2020 Tetanus Booster (TDap): More Than 5 Years Seasonal Allergies Seasonal Allergies: No Current Status status: No status: No Advance Directives: No Communicates: Verbally Primary Language: Niuean Preferred Spoken Language: Niuean Is interpretation needed?: No Sensory deficits: Vision impairment Past Medical History Surgeries: Section, Gallbladder, Hysterectomy, Orthopedic, Tonsillectomy Currently Using CPAP: No 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 Sexually Transmitted Disease: No HIV/AIDS: No Gastroesophageal Reflux, Chronic Constipation Rheumatoid Arthritis, Chronic Back Pain Loss of Vision: Denies Hearing Impairment: Denies Blood Disorders: No Adverse Reaction/Blood Tranf: No (N/A) Family Medical History Reviewed Nursing Family Hx No Pertinent Family Hx Review of Systems Constitutional: No chills, No fever EENTM: no symptoms reported Respiratory: no symptoms reported Cardiovascular: no symptoms reported Gastrointestinal: see HPI Genitourinary: no symptoms reported Musculoskeletal: no symptoms reported Skin: no symptoms reported Psychiatric/Neurological: No Symptoms Reported Physical Exam Physical Exam Vital Signs Vital Signs - First Documented 03/11/22 03/11/22 18:28 23:15 Temp 36.8 Pulse 70 Resp 22 B/P (MAP) 133/109 (117) Pulse Ox 98 O2 Delivery Room Air Capillary Refill : Height, Weight, BMI Height: 5'7" Weight: 150lbs. oz. 68.358709jg; 21.45 BMI Method:Stated General Appearance: No Apparent Distress, WD/WN HEENT: PERRL/EOMI, Moist Mucous Membranes Neck: Normal Inspection, Supple Respiratory: Lungs Clear, No Accessory Muscle Use, No Respiratory Distress Cardiovascular: Regular Rate, Rhythm, No JVD, No Murmur Gastrointestinal: Normal Bowel Sounds, Non Tender, Soft Extremity: Normal Capillary Refill, No Calf Tenderness, No Pedal Edema Neurologic/Psychiatric: Alert, Oriented x3, Normal Mood/Affect Skin: Normal Color, Warm/Dry Results Results/Procedures Labs Laboratory Tests 03/11/22 18:36 03/12/22 05:08 Patient resulted labs reviewed. Imaging: Reviewed Imaging Report Imaging [facility], [place] NAME: MARTIN PORRAS [facility] REC#: [id number] PT STATUS: REG ER : 1970 PHYSICIAN: JAYDEN JAEGER ADMIT DATE: 12/09/21/ER Signed Date of Exam:12/09/21 CT ABD/PELVIS WO(KIDNEY STONE) EXAMINATION: CT abdomen and pelvis without contrast. TECHNIQUE: Multiple contiguous axial images were obtained through the abdomen and pelvis without the use of intravenous contrast. All CT scans use one or more of the following dose optimizing techniques: automated exposure control, MA and/or KvP adjustment based on patient size and exam type or iterative reconstruction. HISTORY: Bilateral flank pain, hematuria. COMPARISON: 09/05/2021. FINDINGS: Lung bases: The lung bases are clear. Solid organs: The liver is normal. The gallbladder is surgically absent. There is no biliary ductal dilation. Pancreas is normal. Spleen is normal. Adrenal glands are normal. The kidneys are normal without visualized calculus or hydronephrosis. Bowel: The stomach and small bowel are normal without obstruction. The colon and appendix are normal. Peritoneum: There is no intraperitoneal free fluid or free air. No suspicious lymphadenopathy. Vasculature: Normal without aneurysm. Musculoskeletal: No suspicious osseous lesion or compression fracture. Pelvis: The uterus is surgically absent. No adnexal mass. The urinary bladder is normal. IMPRESSION: 1. No visualized renal calculus or hydronephrosis. 2. No other acute abnormality in the abdomen or pelvis. Dictated by: Dictated on workstation # [id number] Dict: 12/09/211846 Trans: 12/09/211857 [facility] [id number] Interpreted by: KAILASH ROLAND DO Electronically signed by: KAILASH ROLAND DO 12/09/211857 Assessment/Plan Admission Diagnosis Intractable abdominal pain and nausea Admission Status: Observation Assessment and Plan Intractable abdominal pain and nausea Likely IBS symptoms improving this morning Advance diet Needs to keep appointment with Dr Domínguez for gastric emptying studying Of note UDS positive for canniboids last week so could have a component of cannibis hyperemesis Continue home meds Diagnosis/Problems Diagnosis/Problems (1) Abdominal cramping Status: Acute (2) Nausea vomiting and diarrhea Status: Acute (3) Hypokalemia Status: Acute (4) Dehydration Status: Acute (5) IBS (irritable bowel syndrome) Status: Acute Copy Copies To 1: ADELE CISNEROS MD, KATELYN M MD Mar 12, 2022 08:40
--- NOTE | 2022-03-12 11:41 | Discharge Inst-Simple/Standard ---
Discharge Inst-Standard Patient Instructions/Follow Up Plan of Care/Instructions/FU: Please continue to take your medications as written. Please follow up with your primary care doctor to follow up this hospital stay. Activity as Tolerated: Yes Discharge Diet: Avoid Fatty Foods (bland diet and advance slowly) Return to The Hospital For: Chest pain, worsening abdominal pain, nausea, vomiting, shortness of breath, fever, weakness, if you feel you are getting worse. MAEVE POSADAS MD Mar 12, 2022 11:41
[2022-03-12 11:58] VITALS: BP 123/57
== END 2022-03-12 12:44 | disposition home or self-care (01) ==
LOC: EDUNIT# 17:27 → ER 17:28 → 4TH 21:52 → UNDOADMOB 21:52 → 4TH 23:27 → UNDODISOB 03-12 12:44
PROVIDERS: ADMIT Internal Medicine; ATTEND Family Medicine
DX: E87.6 Hypokalemia (principal); Z79.899 Other long term (current) drug therapy; Z87.891 Personal history of nicotine dependence
CPT/HCPCS: 80048; 80053; 81000; 83690; 83735; 85025 ×2; 87088; 96361 ×2; 96366; 96374; 96375; 96376; 99284; G0378; 36415

== ENCOUNTER → 2022-08-06 | Outpatient (CLI) | payer OTHER ==
--- NOTE | 2022-08-06 12:29 | Diagnostic Imaging Report ---
INDICATION: Routine screening. COMPARISON: 12/15/2020. TECHNIQUE: 2D and 3D bilateral screening mammography was performed with CAD. FINDINGS: Both breasts are heterogeneously dense, limiting the sensitivity of mammography. The parenchymal pattern is stable. No mass or malignant-appearing microcalcifications are seen. The axillae are unremarkable. IMPRESSION: No mammographic features suspicious for malignancy are identified. ACR BI-RADS Category 1: Negative. Result letter will be mailed to the patient. Note: At least 10% of breast cancer is not imaged by mammography. Dictated by: Dictated on workstation # [id number]
== END ==
LOC: RAD 10:03
DX: Z12.31 Encounter for screening mammogram for malignant neoplasm of breast (principal)
CPT/HCPCS: 77063; 77067

== ENCOUNTER → 2022-08-20 | Outpatient (CLI) | payer OTHER ==
--- NOTE | 2022-08-20 12:11 | Diagnostic Imaging Report ---
INDICATION: Splenomegaly followup. PROCEDURE: Ultrasound abdomen complete. TECHNIQUE: Multiple real-time grayscale images were obtained of the abdomen in various projections. Liver parenchyma is homogeneous with normal echotexture. The portal vein is patent with hepatopetal flow. The gallbladder is surgically absent. The common duct is not dilated. Pancreas appears normal. Spleen is not enlarged measuring 8.6 x 4.3 x 4.6 cm. Aorta and IVC appear normal. Right kidney measures 9.8 cm in length. Left kidney measures 10.9 cm in length. There is no mass, calculus or hydronephrosis in either kidney. There is no ascites. IMPRESSION: Unremarkable abdominal ultrasound. No evidence for splenomegaly. Dictated by: Dictated on workstation # [id number]
== END ==
LOC: RAD 08:35
DX: D70.9 Neutropenia, unspecified (principal); M06.9 Rheumatoid arthritis, unspecified
CPT/HCPCS: 76700

== ENCOUNTER 2022-08-28 13:38 | Outpatient (RCR) | payer OTHER ==
[2022-08-28 15:24] LABS: BASOPHILS # (AUTO) 0.1 10^3/uL (0.0-0.1); BASOPHILS % (AUTO) 1 % (0-10); EOSINOPHILS # (AUTO) 0.3 10^3/uL (0.0-0.3); EOSINOPHILS % (AUTO) 5 % (0-10); HEMATOCRIT 37 % (35-52); LYMPHOCYTES # (AUTO) 2.3 X 10^3 (1.0-4.0); LYMPHOCYTES % (AUTO) 40 % (12-44); MEAN CORPUSCULAR HEMOGLOBIN 30 pg (25-34); MEAN CORPUSCULAR HGB CONC 32 g/dL (32-36); MEAN CORPUSCULAR VOLUME 94 fL (80-99); MEAN PLATELET VOLUME 10.2 fL (9.0-12.2); MONOCYTES # (AUTO) 0.3 X 10^3 (0.0-1.0); MONOCYTES % (AUTO) 6 % (0-12); NEUTROPHILS # (AUTO) 2.7 X 10^3 (1.8-7.8); NEUTROPHILS % (AUTO) 48 % (42-75); PLATELET COUNT 235 10^3/uL (130-400); WHITE BLOOD COUNT 5.7 10^3/uL (4.3-11.0)
[2022-08-28 15:49] LABS: ABSOLUTE RETIC # 30 10e9/uL (24-90); RETICULOCYTE % 0.76 % (0.50-2.40)
== END 2022-09-18 | disposition home or self-care (01) ==
LOC: ONC 13:38
PROVIDERS: ATTEND Internal Medicine Hematology & Oncology
DX: D72.819 Decreased white blood cell count, unspecified (principal)
CPT/HCPCS: 82728; 82746; 83540; 83550; 83615; 85025; 85045

== ENCOUNTER 2022-11-14 08:30 | Emergency (ER) | payer OTHER ==
[~2022-11-14] VITALS: Ht 170 cm; Wt 62.0 kg
[2022-11-14] MEDS ORDERED: fentaNYL INJ 100 MCG/2 ML AMP IVP STA (08:49)
[2022-11-14] MEDS ORDERED: LACTATED RINGERS 1,000 ML IV STA (08:49)
[2022-11-14 08:57] LABS: BASOPHILS # (AUTO) 0.1 10^3/uL (0.0-0.1); BASOPHILS % (AUTO) 1 % (0-10); EOSINOPHILS % (AUTO) 0 % (0-10); HEMATOCRIT 38 % (35-52); HEMOGLOBIN 12.9 g/dL (11.5-16.0); LYMPHOCYTES # (AUTO) 0.9 10^3/uL (1.0-4.0); LYMPHOCYTES % (AUTO) 9 % (12-44); MEAN CORPUSCULAR HEMOGLOBIN 31 pg (25-34); MEAN CORPUSCULAR HGB CONC 34 g/dL (32-36); MEAN CORPUSCULAR VOLUME 91 fL (80-99); MEAN PLATELET VOLUME 10.8 fL (9.0-12.2); MONOCYTES # (AUTO) 0.3 10^3/uL (0.0-1.0); MONOCYTES % (AUTO) 3 % (0-12); NEUTROPHILS # (AUTO) 8.5 10^3/uL (1.8-7.8); NEUTROPHILS % (AUTO) 87 % (42-75); PLATELET COUNT 232 10^3/uL (130-400); WHITE BLOOD COUNT 9.7 10^3/uL (4.3-11.0)
[2022-11-14] MEDS ORDERED: PANTOPRAZOLE 40 MG (PROTONIX) VIAL IV ONE (09:00)
[2022-11-14] MEDS ORDERED: ONDANSETRON 4 MG/2 ML (SDV) Z0FRAN IVP ONE (09:00)
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
[2022-11-14 09:11] LABS: BASOPHILS % (MANUAL) 1 %; LYMPHOCYTES % (MANUAL) 7 %; MONOCYTES % (MANUAL) 1 %; NEUTROPHILS % (MANUAL) 91 %; RBC MORPH NORMAL
[2022-11-14 09:19] LABS: ALBUMIN 4.7 GM/DL (3.2-4.5); CHLORIDE 105 MMOL/L (98-107); POTASSIUM 3.6 MMOL/L (3.6-5.0); SODIUM 141 MMOL/L (135-145)
[2022-11-14 09:20] LABS: CALCIUM 9.9 MG/DL (8.5-10.1)
[2022-11-14 09:21] LABS: GLUCOSE 109 MG/DL (70-105); TOTAL PROTEIN 7.9 GM/DL (6.4-8.2)
[2022-11-14 09:22] LABS: CARBON DIOXIDE 23 MMOL/L (21-32)
[2022-11-14 09:23] LABS: BILIRUBIN,TOTAL 0.5 MG/DL (0.1-1.0)
[2022-11-14 09:25] LABS: ALKALINE PHOSPHATASE 62 U/L (40-136); CREATININE SERUM 0.79 MG/DL (0.60-1.30); GFR ESTIMATED 90
[2022-11-14 09:26] LABS: BUN/CREATININE RATIO 13
[2022-11-14 09:28] LABS: ALANINE AMINOTRANSFERASE 14 U/L (0-55); MAGNESIUM 1.8 MG/DL (1.6-2.4)
[2022-11-14] MEDS ORDERED: DROPERIDOL 5 MG/2 ML (INAPSINE) ED ONLY! IV ONE (09:30)
[2022-11-14 11:06] VITALS: BP 154/96
== END 2022-11-14 11:10 | disposition home or self-care (01) ==
LOC: EDUNIT# 08:30 → ER 08:32
DX: R10.13 Epigastric pain (principal); G89.29 Other chronic pain; R11.2 Nausea with vomiting, unspecified; Z28.310 Unvaccinated for COVID-19; Z87.19 Personal history of other diseases of the digestive system; Z90.49 Acquired absence of other specified parts of digestive tract
CPT/HCPCS: 36415; 80053; 83735; 85007; 85027; 86141; 93005

== ENCOUNTER 2023-01-03 18:00 | Emergency (ER) | payer OTHER ==
[~2023-01-03] VITALS: Ht 170.1 cm; Wt 62.0 kg
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
[2023-01-03 18:28] LABS: BASOPHILS # (AUTO) 0.1 10^3/uL (0.0-0.1); BASOPHILS % (AUTO) 1 % (0-10); EOSINOPHILS # (AUTO) 0.1 10^3/uL (0.0-0.3); EOSINOPHILS % (AUTO) 2 % (0-10); HEMATOCRIT 41 % (35-52); HEMOGLOBIN 13.7 g/dL (11.5-16.0); LYMPHOCYTES # (AUTO) 1.5 10^3/uL (1.0-4.0); LYMPHOCYTES % (AUTO) 23 % (12-44); MEAN CORPUSCULAR HEMOGLOBIN 30 pg (25-34); MEAN CORPUSCULAR HGB CONC 33 g/dL (32-36); MEAN CORPUSCULAR VOLUME 92 fL (80-99); MEAN PLATELET VOLUME 10.5 fL (9.0-12.2); MONOCYTES # (AUTO) 0.4 10^3/uL (0.0-1.0); MONOCYTES % (AUTO) 6 % (0-12); NEUTROPHILS # (AUTO) 4.6 10^3/uL (1.8-7.8); NEUTROPHILS % (AUTO) 69 % (42-75); PLATELET COUNT 252 10^3/uL (130-400); WHITE BLOOD COUNT 6.6 10^3/uL (4.3-11.0)
[2023-01-03] MEDS ORDERED: PANTOPRAZOLE 40 MG (PROTONIX) VIAL IV ONE (18:30)
[2023-01-03] MEDS ORDERED: LACTATED RINGERS 1,000 ML IV ONE (18:30)
[2023-01-03] MEDS ORDERED: DROPERIDOL 5 MG/2 ML (INAPSINE) ED ONLY! IV ONE ×2 (18:30→19:15)
[2023-01-03 18:38] LABS: ALBUMIN 4.4 GM/DL (3.2-4.5); CHLORIDE 107 MMOL/L (98-107); POTASSIUM 3.7 MMOL/L (3.6-5.0); SODIUM 140 MMOL/L (135-145)
[2023-01-03 18:39] LABS: CALCIUM 9.7 MG/DL (8.5-10.1)
[2023-01-03 18:40] LABS: AMYLASE 61 U/L (25-125); GLUCOSE 96 MG/DL (70-105); TOTAL PROTEIN 7.3 GM/DL (6.4-8.2)
[2023-01-03 18:41] LABS: CARBON DIOXIDE 23 MMOL/L (21-32)
[2023-01-03 18:42] LABS: BILIRUBIN,TOTAL 0.5 MG/DL (0.1-1.0)
[2023-01-03 18:44] LABS: ALKALINE PHOSPHATASE 54 U/L (40-136); CREATININE SERUM 0.83 MG/DL (0.60-1.30); GFR ESTIMATED 85
[2023-01-03 18:45] LABS: BUN/CREATININE RATIO 12
[2023-01-03 18:47] LABS: ALANINE AMINOTRANSFERASE 12 U/L (0-55); MAGNESIUM 1.7 MG/DL (1.6-2.4)
[2023-01-03 18:48] LABS: LIPASE 17 U/L (8-78)
[2023-01-03 19:14] LABS: BILIRUBIN,URINE NEGATIVE (NEGATIVE); CLARITY,URINE CLEAR; COLOR,URINE YELLOW; GLUCOSE, URINE (UA) NEGATIVE (NEGATIVE); KETONES,URINE NEGATIVE (NEGATIVE); LEUKOCYTE ESTERASE ,URINE NEGATIVE (NEGATIVE); NITRITE,URINE NEGATIVE (NEGATIVE); PH,URINE 8.5 (5-9); PROTEIN,URINE TRACE (NEGATIVE)
[2023-01-03 19:30] LABS: AMORPHOUS SEDIMENT,UR LARGE AMOR PHOSPHATE /LPF; BACTERIA,URINE TRACE /HPF; WBC,URINE RARE /HPF
[2023-01-03 19:33] LABS: AMPHETAMINE SCREEN, URINE NEGATIVE (NEGATIVE); BARBITURATE SCREEN URINE NEGATIVE (NEGATIVE); BENZODIAZEPINES SCREEN URINE NEGATIVE (NEGATIVE); CANNABINOID SCREEN, URINE POSITIVE (NEGATIVE); COCAINE SCREEN URINE NEGATIVE (NEGATIVE); METHADONE STAT NEGATIVE (NEGATIVE); OPIATE SCREEN URINE NEGATIVE (NEGATIVE); OXYCODONE STAT NEGATIVE (NEGATIVE); PROPOXYPHENE STAT NEGATIVE (NEGATIVE); TRICYCLIC ANTIDEPRESSANTS SCRE NEGATIVE (NEGATIVE)
[2023-01-03] MEDS ORDERED: DICYCLOMINE 10 MG/ML (BENTYL) 2 ML AMP IM ONE (19:45)
[2023-01-03] MEDS ORDERED: KETOROLAC 30 MG/ML VIAL IVP ONE (19:45)
[2023-01-03] MEDS ORDERED: DICY20TA PO (19:49)
[2023-01-03] MEDS ORDERED: HYOS0.1283 SL (19:49)
[2023-01-03] MEDS ORDERED: PROM25SU44 RC (19:49)
[2023-01-03] MEDS ORDERED: ONDA8TAB13 PO (19:49)
[2023-01-03] MEDS ORDERED: RX-ONDANSETRON 4 MG ODT (ZOFRAN) PPK #4 PO STA (19:50)
[2023-01-03] MEDS ORDERED: RX-PHENERGAN 25 MG SUPP PPK#3 PR STA (19:50)
[2023-01-03 20:24] VITALS: BP 145/94
== END 2023-01-03 20:24 | disposition home or self-care (01) ==
LOC: EDUNIT# 18:00 → ER 18:02
DX: R11.2 Nausea with vomiting, unspecified (principal); F12.10 Cannabis abuse, uncomplicated; R10.9 Unspecified abdominal pain; G89.29 Other chronic pain
CPT/HCPCS: 80053; 80306; 81000; 82150; 83690; 83735; 85025; 93041; 99284; G0480; 36415; 80320

== ENCOUNTER → 2023-06-04 | Outpatient (CLI) | payer OTHER ==
[~2023-06-04] MED LIST changes: -CELE-63 PO; +CELE-91 PO; +HYOS0.1283 SL; +ONDA8TAB13 PO; +PROM25SU44 RC
--- NOTE | 2023-06-04 16:29 | Diagnostic Imaging Report ---
INDICATION: Arthritis, pain COMPARISON: 12/09/2021 TECHNIQUE: Single radiograph of the pelvis dated 06/04/2023. FINDINGS: [place] right curvature of the lumbar spine is identified with severe disc space height loss noted on the left at L4/L5 with prominent multilevel lateral osteophytes, particularly on the left at L4/L5. Scattered facet joint degenerative changes also noted of the partially visualized lower lumbar spine. The sacroiliac joints and pubic symphysis are intact. No acute fracture or dislocation. No destructive osseous process. Minimal joint space narrowing of the bilateral hips. No suspicious radiopaque foreign body. Stable calcification within the presacral space, unchanged from the prior exam. IMPRESSION: No acute osseous abnormality. There is relatively advanced degenerative changes within the partially visualized lower lumbar spine with associated apex right curvature of the lower lumbar spine. Low-grade degenerative changes involving the bilateral hips. Dictated by: Dictated on workstation # [id number]
--- NOTE | 2023-06-04 16:47 | Diagnostic Imaging Report ---
EXAMINATION: Bilateral ankles, two views. HISTORY: Ankle pain. COMPARISON: None available. FINDINGS: The alignment of both ankles is normal. No fracture is seen in either ankle. Both mortises are intact. Joint spaces are normal. IMPRESSION: Normal bilateral ankles. Dictated by: Dictated on workstation # [id number]
--- NOTE | 2023-06-04 17:13 | Diagnostic Imaging Report ---
EXAMINATION: Right and left knee radiographs, single view each. COMPARISON: None. HISTORY: 52-year-old female, bilateral knee pain. FINDINGS: The medial and lateral compartment joint spaces are preserved. There is no identified acute fracture. There are limitations of the exam relating to the single view obtained. IMPRESSION: 1. Unremarkable single standing radiographic evaluation of both knees. Dictated by: Dictated on workstation # [id number]
--- NOTE | 2023-06-04 17:14 | Diagnostic Imaging Report ---
EXAMINATION: Right hand radiograph, single view. Left hand radiograph, single view. COMPARISON: None. HISTORY: 52-year-old female, bilateral hand pain. FINDINGS: There are limitations of the exam relating to the single view obtained. The joint spaces appear well-preserved. There is no bone erosion. There is no chondrocalcinosis. There is no prominent focal soft tissue swelling. There is no periosteal reaction. Bone mineralization appears to be within normal limits. There is no identified acute fracture. IMPRESSION: 1. Unremarkable single view radiographic evaluation of both hands. Dictated by: Dictated on workstation # [id number]
== END ==
LOC: RAD 15:02
PROVIDERS: ATTEND Internal Medicine Rheumatology
DX: M47.816 Spondylosis without myelopathy or radiculopathy, lumbar region (principal); M06.4 Inflammatory polyarthropathy; M54.2 Cervicalgia; M79.642 Pain in left hand; M79.641 Pain in right hand; M25.561 Pain in right knee; M25.562 Pain in left knee
CPT/HCPCS: 72170; 73565